=== PATIENT | male | born 1955 | race Caucasian/White ===

== ENCOUNTER 2017-06-24 09:02 | Outpatient (CLI) | payer OTHER ==
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
[2017-06-24] MEDS ORDERED: Sodium Chloride 0.9% 15 ML NEB ONE (15:27)
== END 2017-06-24 09:03 | disposition home or self-care (01) ==
LOC: WCC 09:02
PROVIDERS: ATTEND Family Medicine
DX: I83.218 Varicose veins of right lower extremity with both ulcer of other part of lower extremity and inflammation (principal); I10 Essential (primary) hypertension; M19.90 Unspecified osteoarthritis, unspecified site; F17.210 Nicotine dependence, cigarettes, uncomplicated; Z90.49 Acquired absence of other specified parts of digestive tract; Z98.890 Other specified postprocedural states; Z79.899 Other long term (current) drug therapy
CPT/HCPCS: 29581; 99203; A4218; G0463

== ENCOUNTER 2017-07-01 08:47 | Outpatient (CLI) | payer OTHER ==
--- NOTE | 2017-07-01 09:24 | PRG ---
DATE OF SERVICE: 07/01/2017 HISTORY: Mr. Jayden Zarco is a very pleasant 61-year-old gentleman who presents to the [facility] for evaluation of multiple small venous ulcerations of the right anterior lower leg. The patient pr eviously stated that the appearance of his right anterior lower leg had improved over the month prior to being seen in the [facility] Center. The patient stated that he had been treated with a steroid cream for the small ulcerations of his right anterior lower leg. The patient stated that he had been ximena aubrey with p.o. antibiotics by Dr. Malick Crane intermittently for 18 months prior to being seen in the [facility] Center. The patient stated that one week prior to being seen in the [facility] Center, he had been seen by Dr. Scooby Kahn and placed on p.o. penicillin. At this time, the patient stated he was re ferred by Dr. Kahn to the [facility]ound Center for treatment with compression for the multiple small ulcerat ions of his right anterior lower leg. After being seen in the [facility]ound Center, Xeroform gauze, Webril, and 3M Coban 2 layer compression system were applied to the right anterior lower leg ulcerations. PHYSICAL EXAMINATION: VITAL SIGNS: Temperature 98.0, pulse 84, respirations 18, blood pressure 153/90. EXTREMITIES: Multiple small ulcerations of the right anterior lower leg in a diffuse distribution swain ve improved in their appearance since the patient's last visit. No serous or purulent drainage is as sociated with any of the wounds. Less erythema of the right anterior lower leg is present than at th e time of the patient's last visit. The erythema appears to be secondary to stasis changes. No mace ration of the skin of the right anterior lower leg is noted. A dorsalis pedis pulse is easily palpab le on the right. No significant edema of the right foot or lower leg is present on exam today. Nume quyen varicosities are present over the right foot. ASSESSMENT AND PLAN: 1. Varicose veins with ulcers and inflammation. Xeroform gauze, Webril, and the 3M Coban 2-layer co mpression system will be applied to the ulcerations of the right anterior lower leg today. The patie nt is to continue p.o. penicillin as per Dr. Scooby Kahn of Infectious Diseases. I will see Mr. Neri davila again in one week. The patient states that he has a followup appointment with Dr. Kahn in appr oximately 10 days. 2. Hypertension. 3. Arthritis.
== END 2017-07-01 08:48 | disposition home or self-care (01) ==
LOC: WCC 08:47
PROVIDERS: ATTEND Family Medicine
DX: I83.219 Varicose veins of right lower extremity with both ulcer of unspecified site and inflammation (principal); I10 Essential (primary) hypertension; M19.90 Unspecified osteoarthritis, unspecified site
CPT/HCPCS: 29581

== ENCOUNTER 2017-07-08 08:34 | Outpatient (CLI) | payer OTHER ==
--- NOTE | 2017-07-08 11:59 | PRG ---
DATE OF SERVICE: 07/08/2017 HISTORY: Mr. Jayden Zarco is a very pleasant 61-year-old gentleman who presents to the [facility] for evaluation of multiple small venous ulcerations of the right anterior lower leg. The patie nt previously stated that the appearance of his right anterior lower leg had improved over the month prior to being seen in the [facility]ound Center. The patient stated that he had been treated with a steroid cream for the small ulcerations of his right anterior lower leg. The patient stated that he had been treated with p.o. antibiotics by Dr. Malick Crane intermittently for 18 months prior to being seen i n the Wound Center. The patient stated that one week prior to being seen in the [facility]ound Center, he had been seen by Dr. Scooby Kahn and placed on p.o. penicillin. At this time, the patient stated he w as referred by Dr. Kahn to the [facility] for treatment with compression for the multiple small ul cerations of his right anterior lower leg. After being seen in the Wound Center, Xeroform gauze, Web ril, and 3M Coban 2 layer compression system were applied to the right anterior lower leg ulcerations . The patient has been receiving these dressing changes on a weekly basis. PHYSICAL EXAMINATION: VITAL SIGNS: Temperature 98.2, pulse 80, respirations 18, blood pressure 141/89. EXTREMITIES: Multiple small ulcerations of the right anterior lower leg in a diffuse distribution swain ve again improved in their appearance since the patient's last visit. No serous or purulent drainage is associated with any of the wounds. Less erythema of the right anterior lower leg is present than at the time of the patient's last visit. The erythema appears to be secondary to stasis changes. N o maceration of the skin of the right anterior lower leg is present. A dorsalis pedis pulse is easil y palpable on the right. No significant edema of the right foot or lower leg is present on exam toda y. Numerous varicosities are present over the right foot. ASSESSMENT AND PLAN: 1. Varicose veins with ulcers and inflammation. Xeroform gauze, Webril, and 3M Coban 2-layer compre ssion system will be applied to the ulcerations of the right anterior lower leg today. The patient i s to continue p.o. penicillin as per Dr. Scooby Kahn of Infectious Diseases. I will see Mr. Zarco again in one week. The patient states he has a followup appointment with Dr. Kahn also in 1 week. The patient has been asked to consider prescription strength compression garments evaluation for gerard ous ablation and treatment with a pneumatic pump in order to prevent any new or recurrent ulcerations . The patient states he will discuss the preceding options with Dr. Kahn. 2. Hypertension. 3. Arthritis.
== END 2017-07-08 08:35 | disposition home or self-care (01) ==
LOC: WCC 08:34
PROVIDERS: ATTEND Family Medicine
DX: I83.218 Varicose veins of right lower extremity with both ulcer of other part of lower extremity and inflammation (principal); I10 Essential (primary) hypertension; M19.90 Unspecified osteoarthritis, unspecified site
CPT/HCPCS: 29581

== ENCOUNTER 2018-07-04 15:26 | Inpatient (IN) | payer MEDICARE, OTHER ==
[2018-07-04] MEDS ORDERED: Acetaminophen 650 MG Suppository PR PRN (16:53)
[2018-07-04] MEDS ORDERED: Ondansetron PF 4 MG/2 ML Vial IVP PRN (16:53)
[2018-07-04] MEDS ORDERED: Senokot S 8.6-50 MG TAB PO PRN (16:53)
[2018-07-04] MEDS ORDERED: Guaifenesin DM 100-10/5 ML UDCUP PO PRN (16:53)
[2018-07-04] MEDS ORDERED: Ondansetron ODT 4 MG TAB PO PRN (16:53)
[2018-07-04] MEDS ORDERED: Acetaminophen 325 MG TAB PO PRN (16:53)
[2018-07-04] MEDS ORDERED: Albuterol Sulfate 2.5 mg/3 ml Neb NEB PRN (16:58)
[2018-07-04 17:17] VITALS: BMI 38.9
[2018-07-04 18:01] LABS: ALT (SGPT) 25 U/L (8-55); AST (SGOT) 19 U/L (5-34); Albumin 3.3 g/dL (3.4-4.8); Alkaline Phosphatase 85 U/L (40-150); Anion Gap 11 mmol/L (10-20); BUN (Urea Nitrogen) 15 mg/dL (8.4-25.7); Bilirubin, Total 0.4 mg/dL (0.2-1.2); Calc. Creatinine Clearance 183 mL/min (70-130); Calcium 8.9 mg/dL (7.8-10.44); Carbon Dioxide 24 mmol/L (23-31); Chloride 100 mmol/L (98-107); Estimated GFR-MDRD 89; Globulin 3.5 g/dL (2.4-3.5); Glucose 128 mg/dL (80-115); Potassium 4.2 mmol/L (3.5-5.1); Protein, Total 6.8 g/dL (5.8-8.1); Sodium 131 mmol/L (136-145)
[2018-07-04 18:08] LABS: Band 9 % (5-11); Eosinophils 1 % (0-10); Hemoglobin 13.2 g/dL (14.0-18.0); Lymphocytes 27 % (21-51); MDiff Complete? YES; Mean Corpuscular HGB CONC 33.1 g/dL (32.0-36.0); Mean Corpuscular Hemoglobin 28.9 pg (27.0-31.0); Mean Corpuscular Volume 87.3 fL (78.0-98.0); Mean Platelet Volume 8.2 fL (7.4-10.4); Monocytes 7 % (0-10); Neutrophil 55 % (42-75); Platelet Count 162 thou/uL (130-400); Platelet Morphology Comment Appears Adequate; Reactive Lymphocytes 1 % (0-10); Red Blood Cell (RBC) Count 4.57 mill/uL (4.70-6.10); White Blood Cell (WBC) Count 8.4 thou/uL (4.8-10.8)
[2018-07-04] MEDS: Sodium Chloride 0.9% 1,000 ML IV SCH (18:24)
[2018-07-04 19:00] LABS: Bilirubin Negative (Negative); Blood, Urine Trace (Negative); Clarity CLEAR (Clear); Glucose, Urine (Dipstick) Negative (Negative); Leukocyte Negative (Negative); Nitrite Negative (Negative); Protein, Urine (Dipstick) Trace mg/dL (Neg-Trace)
[2018-07-04 19:02] LABS: Bacteria/HPF None Seen HPF (None Seen); Hyaline Casts/LPF 0-3 HYALINE CAST LPF (0-3 Hyaline); Pathc Cast-AUWi Flag 0.27 (0-2.49); Squamous Epithelial None Seen HPF (0-3); WBC/HPF 0-3 HPF (0-3)
[2018-07-04] MEDS: Famotidine 20 MG TAB PO SCH (20:58)
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
[2018-07-05] MEDS: Enoxaparin Sodium 40 MG/0.4 ML SYRINGE SC SCH (08:09)
[2018-07-05] MEDS: Famotidine 20 MG TAB PO SCH ×2 (08:10→20:17)
[2018-07-05 08:19] LABS: Anion Gap 12 mmol/L (10-20); BUN (Urea Nitrogen) 16 mg/dL (8.4-25.7); Calc. Creatinine Clearance 187 mL/min (70-130); Calcium 8.8 mg/dL (7.8-10.44); Carbon Dioxide 21 mmol/L (23-31); Chloride 104 mmol/L (98-107); Estimated GFR-MDRD Greater than 90; Glucose 150 mg/dL (80-115); Hemoglobin 13.6 g/dL (14.0-18.0); Mean Corpuscular HGB CONC 34.6 g/dL (32.0-36.0); Mean Corpuscular Hemoglobin 30.2 pg (27.0-31.0); Mean Corpuscular Volume 87.1 fL (78.0-98.0); Platelet Count 164 thou/uL (130-400); Potassium 4.2 mmol/L (3.5-5.1); RBC Distribution Width 14.3 % (11.5-14.5); Red Blood Cell (RBC) Count 4.52 mill/uL (4.70-6.10); Sodium 133 mmol/L (136-145); White Blood Cell (WBC) Count 7.3 thou/uL (4.8-10.8)
[2018-07-05 09:01] LABS: Band 19 % (5-11); Eosinophils 3 % (0-10); Lymphocytes 36 % (21-51); MDiff Complete? YES; Monocytes 10 % (0-10); Myelocyte 2 % (0-0); Neutrophil 27 % (42-75); Platelet Morphology Comment Appears Adequate; Polychromasia SLIGHT = 2-3 cells (100X) (0-2/hpf); Reactive Lymphocytes 3 % (0-10)
[2018-07-05] MEDS ORDERED: PROVENTIL INHALER 6.7 G (200 INHALATIONS) INH PRN (09:46)
--- NOTE | 2018-07-05 09:50 | PDOC.PN ---
- Subjective Encounter Start Date: 07/05/18 Encounter Start Time: 12:10 Subjective: Patient feeling a bit better. Less cough. No fever. Hasn't tried ambulating -: much. No SOB at rest. - Objective Resuscitation Status - Order Detail: 07/04/18 16:53 Resuscitation Status Routine Resuscitation Status: FULL: Full Resuscitation Discussed with: Doyle PANDEY Reviewed: Yes Vital Signs & Weight: Vital Signs (12 hours) Temp Pulse Resp BP Pulse Ox 07/05/18 08:48 98.3 F 80 20 133/73 94 L 07/05/18 08:00 94 L 07/05/18 06:45 72 16 96 07/05/18 04:26 98.3 F 73 18 121/72 95 07/05/18 01:13 66 16 95 07/05/18 00:27 98.1 F 65 16 104/59 L 95 Weight Weight 320 lb Result Diagrams: 07/05/18 07:09 07/05/18 07:09 Phys Exam - Physical Examination Constitutional: NAD HEENT: moist MMs Respiratory: no wheezing, no rales, no rhonchi Cardiovascular: RRR, no significant murmur Gastrointestinal: soft, positive bowel sounds Neurological: non-focal, moves all 4 limbs Psychiatric: normal affect, A&O x 3 Dx/Plan (1) Community acquired pneumonia Code(s): J18.9 - PNEUMONIA, UNSPECIFIED ORGANISM Status: Acute Qualifiers: Laterality: right Lung location: lower lobe of lung Qualified Code(s): J18.1 - Lobar pneumonia, unspecified organism (2) HTN (hypertension) Code(s): I10 - ESSENTIAL (PRIMARY) HYPERTENSION Status: Chronic Qualifiers: Hypertension type: essential hypertension Qualified Code(s): I10 - Essential (primary) hypertension (3) BPH (benign prostatic hyperplasia) Code(s): N40.0 - BENIGN PROSTATIC HYPERPLASIA WITHOUT LOWER URINRY TRACT SYMP Status: Chronic - Plan cont current plan of care, continue antibiotics, out of bed/ambulate, DVT proph w/lovenox, DVT proph w/SCDs * . - Discharge Day Encounter end time: 12:20
[2018-07-05] MEDS: Sodium Chloride 0.9% 1,000 ML IV SCH (14:59)
[2018-07-06] MEDS: Famotidine 20 MG TAB PO SCH (07:30)
[2018-07-06] MEDS: Enoxaparin Sodium 40 MG/0.4 ML SYRINGE SC SCH (07:30)
[2018-07-06 07:51] VITALS: BP 148/99; TEMP 97.5
[2018-07-06] MEDS ORDERED: Losartan 25 MG TAB PO SCH (09:00)
[2018-07-06] MEDS ORDERED: Fluticasone Propionate Nasal Spray 16 gm Bottle NASAL SCH (09:00)
[2018-07-06] MEDS ORDERED: Venlafaxine HCl XR 75 MG CAP PO SCH (09:00)
[2018-07-06] MEDS ORDERED: Tamsulosin HCl 0.4 MG CAP PO SCH (09:00)
--- NOTE | 2018-07-06 09:25 | PDOC.PN ---
- Subjective Encounter Start Date: 07/06/18 Encounter Start Time: 11:20 Subjective: Patient feeling much better. Minimal SOB with ambulation. No fever. -: Ready to go home. - Objective Resuscitation Status - Order Detail: 07/04/18 16:53 Resuscitation Status Routine Resuscitation Status: FULL: Full Resuscitation Discussed with: Doyle PANDEY Reviewed: Yes Vital Signs & Weight: Vital Signs (12 hours) Temp Pulse Resp BP Pulse Ox 07/06/18 08:00 93 L 07/06/18 07:50 97.5 F L 67 20 148/99 H 93 L 07/06/18 06:29 69 18 96 07/06/18 00:11 76 18 95 Weight Admit Weight 320 lb Weight 320 lb Result Diagrams: 07/05/18 07:09 07/05/18 07:09 Phys Exam - Physical Examination Constitutional: NAD HEENT: moist MMs Respiratory: no wheezing, no rales, no rhonchi, clear to auscultation bilateral Cardiovascular: RRR, no significant murmur Gastrointestinal: soft, non-tender, positive bowel sounds Neurological: non-focal, moves all 4 limbs Psychiatric: normal affect, A&O x 3 Dx/Plan (1) Community acquired pneumonia Code(s): J18.9 - PNEUMONIA, UNSPECIFIED ORGANISM Status: Acute Qualifiers: Laterality: right Lung location: lower lobe of lung Qualified Code(s): J18.1 - Lobar pneumonia, unspecified organism (2) HTN (hypertension) Code(s): I10 - ESSENTIAL (PRIMARY) HYPERTENSION Status: Chronic Qualifiers: Hypertension type: essential hypertension Qualified Code(s): I10 - Essential (primary) hypertension (3) BPH (benign prostatic hyperplasia) Code(s): N40.0 - BENIGN PROSTATIC HYPERPLASIA WITHOUT LOWER URINRY TRACT SYMP Status: Chronic - Plan cont current plan of care, continue antibiotics, out of bed/ambulate, DVT proph w/lovenox, DVT proph w/SCDs d/c home today, f/u with PCP and repeat CXR in 7-12 weeks due to -: age and previous smoking history * . - Discharge Day Encounter end time: 11:30
--- NOTE | 2018-07-07 06:57 | DIS ---
DATE OF ADMISSION: 07/04/2018 DATE OF DISCHARGE: 07/06/2018 PRIMARY CARE PHYSICIAN: Malick Crane MD REASON FOR ADMISSION: Community-acquired pneumonia, failed outpatient treatment. DIAGNOSES AT DISCHARGE: 1. Community-acquired pneumonia, improved. 2. Tobacco abuse. 3. Benign prostatic hyperplasia. PROCEDURES: None. CONSULTATIONS: None. SUMMARY OF HOSPITAL COURSE: This is a 62-year-old white male with a history of previous tobacco abuse. No asthma or COPD. He developed some dyspnea on exertion, some chills and fevers, was seen in the outpatient setting and noted to have a right lower lobe pneumonia with effusion. He was tried on Rocephin IM for 3 days as well as doxycycline. His symptoms were not improving at all and so he went to see Dr. Jayden Coates who was in for Dr. Crane while he was out of town and he asked us to directly admit the patient for failed outpatient treatment. The patient was admitted to the hospital, had lab work done, which was normal. He had IV Levaquin for 2 days. On 3rd hospital day, the patient is feeling much better. He is able ambulate in the hallways with minimal shortness of breath. No more fevers or body aches and he is ready to go home. DISCHARGE MANAGEMENT: Discharged home. FOLLOWUP: Follow up with Dr. Crane in 2 to 3 weeks and will need a repeat chest x-ray in 7-12 weeks due to his age and smoking history to confirm complete resolution. ACTIVITY: As tolerated. DIET: Healthy heart diet. MEDICATIONS: 1. Levaquin 750 mg daily, 3 tabs, dispensed for a total course of 5 days. 2. Resume albuterol as needed. 3. Fluticasone 2 sprays in each nostril daily. 4. Losartan 100 mg daily. 5. Sertraline 100 mg daily. 6. Tamsulosin 0.4 mg daily. 7. Venlafaxine 75 mg daily. Job ID: [id number] [id number]
== END 2018-07-06 13:22 | disposition home or self-care (01) | DRG 195 ==
LOC: T4-A 15:39
PROVIDERS: ADMIT Internal Medicine; ATTEND Internal Medicine
DX: J18.1 Lobar pneumonia, unspecified organism (principal); I10 Essential (primary) hypertension; N40.0 Benign prostatic hyperplasia without lower urinary tract symptoms; M19.90 Unspecified osteoarthritis, unspecified site; I87.2 Venous insufficiency (chronic) (peripheral); H54.40 Blindness, one eye, unspecified eye; F17.210 Nicotine dependence, cigarettes, uncomplicated; G47.419 Narcolepsy without cataplexy; Z90.49 Acquired absence of other specified parts of digestive tract; Z79.899 Other long term (current) drug therapy
CPT/HCPCS: 36415; 80048; 80053; 81003; 81015; 85025; 87040; 87070; 87086; 87205; 87804; 94640; J1650; J1956; J7620

== ENCOUNTER 2019-03-31 08:35 | Outpatient (CLI) | payer OTHER ==
--- NOTE | 2019-03-31 11:17 | RAD ---
Esophagram HISTORY: Dysphagia. Weight gain. Bariatric lap band. FINDINGS: Lap band is at the level of the diaphragm on the pens and pencils repairer images. Administration of single col umn barium shows mild to moderate restriction of contrast at the level of the band. Small hiatal hernia evident with the band at the location of the diaphragm. There is resultant reflux of the contr ast from the hernia into the esophagus. Extensive nonpropulsive tertiary type contractions. IMPRESSION: Lap band does restrict flow of liquid contrast, but it is at the level of the diaphragm, with reflux of contrast from the herniated portion of the stomach above the diaphragm throughout the entirety of the esophagus. Resultant prominent tertiary contractions of the esophagus.
== END 2019-03-31 08:36 | disposition home or self-care (01) ==
LOC: RAD 08:35
PROVIDERS: ATTEND Surgery
DX: K21.9 Gastro-esophageal reflux disease without esophagitis (principal); R63.5 Abnormal weight gain
CPT/HCPCS: 74220

== ENCOUNTER 2019-07-04 06:36 | Outpatient (CLI) | payer OTHER ==
[2019-07-04 17:32] LABS: #Basophils 0.1 thou/uL (0.0-0.2); #Eosinphils 0.6 thou/uL (0.0-0.7); #Lymphocytes 2.5 thou/uL (1.20-3.40); #Monocytes 0.9 thou/uL (0.11-0.59); #Neutrophils 4.8 thou/uL (1.40-6.50); %Basophils 0.6 % (0.0-1.0); %Eosinophils 6.4 % (0.0-10.0); %Lymphocytes 28.1 % (21.0-51.0); %Monocytes 10.5 % (0.0-10.0); %Neutrophils 54.4 % (42.0-75.0); Hemoglobin 14.5 g/dL (14.0-18.0); Mean Corpuscular HGB CONC 32.6 g/dL (32.0-36.0); Mean Platelet Volume 9.9 fL (7.4-10.4); Platelet Count 169 thou/uL (130-400); RBC Distribution Width 13.1 % (11.5-14.5); Red Blood Cell (RBC) Count 4.82 mill/uL (4.70-6.10); White Blood Cell (WBC) Count 8.9 thou/uL (4.8-10.8)
[2019-07-04 17:43] LABS: Anion Gap 16 mmol/L (10-20); BUN (Urea Nitrogen) 19 mg/dL (8.4-25.7); Calc. Creatinine Clearance 0 mL/min (70-130); Calcium 9.2 mg/dL (7.8-10.44); Carbon Dioxide 22 mmol/L (23-31); Chloride 104 mmol/L (98-107); Estimated GFR-MDRD 73; Glucose 143 mg/dL (80-115); Potassium 4.2 mmol/L (3.5-5.1); Sodium 138 mmol/L (136-145)
--- NOTE | 2019-07-04 20:27 | EKG ---
Test Reason : Blood Pressure : / mmHG Vent. Rate : 079 BPM Atrial Rate : 079 BPM P-R Int : 172 ms QRS Dur : 112 ms QT Int : 396 ms P-R-T Axes : 020 016 041 degrees QTc Int : 454 ms Normal sinus rhythm Low voltage QRS Incomplete right bundle branch block Borderline ECG No previous ECGs available Confirmed by STEPHANIE CORBETT, DR. Bob ([id number]) on 07/04/2019 8:27:26 PM Referred By: REYNA Confirmed By:DR. Paulino BROWN MD
[2019-07-05 10:55] LABS: SARS-CoV-2 MS2 Positive; SARS-CoV-2 N Gene Negative; SARS-CoV-2 S Gene Negative; SARS-CoV-2 orf1ab Negative
== END 2019-07-04 06:37 | disposition home or self-care (01) ==
LOC: LABBT 06:36
PROVIDERS: ATTEND Surgery
DX: Z01.818 Encounter for other preprocedural examination (principal); Z11.59 Encounter for screening for other viral diseases; T85.598A Other mechanical complication of other gastrointestinal prosthetic devices, implants and grafts, initial encounter
CPT/HCPCS: 80048; 85025; 87635; 93005; 93010; U0003

== ENCOUNTER 2019-07-06 06:25 | Day surgery (SDC) | payer OTHER ==
[2019-07-04 14:21] VITALS: BMI 41.3
[2019-07-06] MEDS ORDERED: Lidocaine 1% w/Epinephrine 1:100K 20 ML VIAL ONE (06:36)
[2019-07-06] MEDS ORDERED: Bupivacaine 0.25% HCL 30 ML VIAL ONE (06:36)
[2019-07-06] MEDS ORDERED: SUGAMMADEX SODIUM 500 MG/5 ML VIAL ONE (07:21)
[2019-07-06] MEDS ORDERED: Fentanyl 100 MCG/2 ML VIAL ONE ×2 (07:21)
[2019-07-06] MEDS ORDERED: Albuterol Sulfate HFA (OR ONLY) ONE (07:42)
--- NOTE | 2019-07-06 10:15 | OP ---
DATE OF PROCEDURE: 07/06/2019 PREOPERATIVE DIAGNOSIS: Fractured lap-band tubing. PROCEDURES PERFORMED: Replacement of lap-band port and repair of lap-band. INDICATIONS: A 63-year-old male, who has had a lap-band since 2001, who lost restriction. We did an x-ray that showed the tubing was still intact. Any fluid that was instilled would immediately be not accessible. FINDINGS: There was a tear of the tubing just at the port, so the whole port had to be replaced. I left him with 1 mL of saline within the system. DESCRIPTION OF PROCEDURE: After informed consent was obtained, the patient was taken to the operating room and given general endotracheal anesthesia, placed in supine position. His abdomen was prepped and draped in usual fashion. Local anesthesia was infiltrated subcutaneously and deep, and a transverse incision performed in the left upper quadrant. Subcu divided sharply, it was very deep, went down to and opened the capsule. The port was retrieved. The tubing was able to be retrieved. There was a fracture about half the diameter of the tubing right at the port. The tubing was divided and the port removed. A new port was fashioned by flushing the air out of the system with the priming needle. Then, the tubing of the lap-band was cut on a fresh cut and the pin was inserted. The system was sutured to the abdominal wall with interrupted 2-0 Prolene suture. The system was accessed with the Talbot needle and flushed, this old saline was removed, and 1 mL of saline left within the system. Hemostasis was assured. The subcu was reapproximated with interrupted 3-0 Vicryl and the skin closed with a running subcuticular 4-0 Rapide. Dermabond applied. The patient tolerated the procedure well, transferred to Recovery in good condition. Sponge and needle count verified correct x2. Job ID: [id number]
[2019-07-06] MEDS ORDERED: PROPOFOL 200 MG/20 ML VIAL ONE (13:28)
[2019-07-06] MEDS ORDERED: Ketorolac Tromethamine 30 MG/ML VIAL ONE (13:28)
[2019-07-06] MEDS ORDERED: Ondansetron PF 4 MG/2 ML Vial ONE (13:28)
[2019-07-06] MEDS ORDERED: Lidocaine 1% PF 5 ML VIAL ONE (13:28)
[2019-07-06] MEDS ORDERED: Rocuronium Bromide 10 MG/ML (10ML VIAL) ONE (13:28)
[2019-07-06] MEDS ORDERED: EPHEDRINE 25 MG/5 ML SYRINGE ONE ×2 (13:28)
[2019-07-06] MEDS ORDERED: PHENYLEPHRINE-NS 100 MCG/ML 10 ML SYRINGE ONE (13:28)
== END 2019-07-06 10:00 | disposition home or self-care (01) ==
LOC: SDC 06:25
PROVIDERS: ATTEND Surgery
PROC: 0DW63CZ Revision of Extraluminal Device in Stomach, Percutaneous Approach (ICD-10-PCS; principal; 2019-07-06)
DX: T85.598A Other mechanical complication of other gastrointestinal prosthetic devices, implants and grafts, initial encounter (principal); F17.210 Nicotine dependence, cigarettes, uncomplicated; Z79.899 Other long term (current) drug therapy
CPT/HCPCS: J0690; J1885; J2001; J2405; J2704; J3010; S0020

== ENCOUNTER 2019-11-29 17:12 | Inpatient (IN) | payer MEDICARE, OTHER ==
[~2019-11-29 17:12] MED LIST: Dexamethasone 20 MG/5 ML VIAL ONE; EPHEDRINE 25 MG/5 ML SYRINGE ONE; Glycopyrrolate 0.2 MG/ML 5 ML SYRINGE ONE; Iopamidol-370 76% 500 ML 1 ML ONE; Lidocaine 1% PF 5 ML VIAL ONE; Ondansetron PF 4 MG/2 ML Vial ONE; PHENYLEPHRINE-NS 100 MCG/ML 10 ML SYRINGE ONE; PROPOFOL 200 MG/20 ML VIAL ONE; Rocuronium Bromide 10 MG/ML (10ML VIAL) ONE; Succinylcholine Chloride 20 MG/ML 10 ml SYRINGE FS ONE
[2019-11-29] MEDS ORDERED: Boostrix 0.5 ML VIAL ONE (17:18)
[2019-11-29] MEDS ORDERED: Ketamine 50 MG/ML (10ML VIAL) ONE (17:18)
[2019-11-29] MEDS ORDERED: Gentamicin 80 MG/2 ML VIAL ONE (17:18)
[2019-11-29] MEDS ORDERED: Ondansetron PF 4 MG/2 ML Vial ONE (17:21)
[2019-11-29 17:41] LABS: #Basophils 0.1 thou/uL (0.0-0.2); #Eosinphils 0.5 thou/uL (0.0-0.7); #Lymphocytes 2.5 thou/uL (1.20-3.40); #Monocytes 0.8 thou/uL (0.11-0.59); #Neutrophils 9.8 thou/uL (1.40-6.50); %Basophils 0.6 % (0.0-1.0); %Eosinophils 3.9 % (0.0-10.0); %Lymphocytes 18.1 % (21.0-51.0); %Monocytes 5.8 % (0.0-10.0); %Neutrophils 71.6 % (42.0-75.0); Hemoglobin 15.2 g/dL (14.0-18.0); Mean Corpuscular HGB CONC 32.5 g/dL (32.0-36.0); Mean Corpuscular Hemoglobin 29.5 pg (27.0-31.0); Mean Corpuscular Volume 90.9 fL (78.0-98.0); Platelet Count 193 thou/uL (130-400); RBC Distribution Width 13.3 % (11.5-14.5); Red Blood Cell (RBC) Count 5.16 mill/uL (4.70-6.10); White Blood Cell (WBC) Count 13.7 thou/uL (4.8-10.8)
[2019-11-29 17:42] LABS: PTT 24.1 sec (22.9-36.1); Prothrombin Time 13.7 sec (12.0-14.7)
[2019-11-29] MEDS ORDERED: Gentamicin 300 MG in Sodium Chloride 0.9% 100 ML IVPB ONE (17:45)
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
[2019-11-29 18:01] LABS: ALT (SGPT) 30 U/L (8-55); AST (SGOT) 32 U/L (5-34); Albumin 3.9 g/dL (3.4-4.8); Alcohol Less than 10 mg/dL (Less than 10); Alkaline Phosphatase 88 U/L (40-110); Anion Gap 15 mmol/L (10-20); BUN (Urea Nitrogen) 23 mg/dL (8.4-25.7); Bilirubin, Total 0.5 mg/dL (0.2-1.2); Calc. Creatinine Clearance 0 mL/min (70-130); Calcium 8.9 mg/dL (7.8-10.44); Carbon Dioxide 21 mmol/L (23-31); Chloride 105 mmol/L (98-107); Estimated GFR-MDRD 58; Globulin 3.3 g/dL (2.4-3.5); Glucose 230 mg/dL (80-115); Potassium 3.7 mmol/L (3.5-5.1); Protein, Total 7.2 g/dL (5.8-8.1); Sodium 137 mmol/L (136-145)
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
[2019-11-29] MEDS ORDERED: Morphine 4 MG/ML VIAL ONE ×2 (18:15→18:25)
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
[2019-11-29] MEDS ORDERED: Lidocaine 2% Jelly 5 ML TUBE ONE (18:28)
[2019-11-29] MEDS ORDERED: Midazolam HCl 2 mg/2 ml Vial ONE (18:28)
[2019-11-29] MEDS ORDERED: Fentanyl 100 MCG/2 ML VIAL ONE ×3 (18:28→19:46)
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
[2019-11-29] MEDS ORDERED: Bupivacaine PF 0.5% 30 ML VIAL ONE (19:12)
[2019-11-29] MEDS ORDERED: Neomycin-Polymyxin 1 ML AMP ONE (19:12)
[2019-11-29 19:30] LABS: Magnesium 1.9 mg/dL (1.6-2.6); Phosphorus 3.1 mg/dL (2.3-4.7)
[2019-11-29] MEDS ORDERED: Morphine 4 MG/ML VIAL SLOW IVP PRN (21:34)
[2019-11-29] MEDS ORDERED: Ondansetron PF 4 MG/2 ML Vial IVP PRN (21:34)
[2019-11-29] MEDS ORDERED: Dextrose 50% Abboject 50 ML SYRINGE SLOW IVP PRN (21:34)
[2019-11-29] MEDS ORDERED: Dextrose 5% in Water 1,000 ML IV PRN (21:34)
[2019-11-29] MEDS ORDERED: Insulin Regular 300 UNITS/3 ML VIAL SC PRN (21:34)
--- NOTE | 2019-11-29 22:02 | RAD ---
EXAM INTRAOPERATIVE FLUOROSCOPY 11/29/19 HISTORY: ORIF EXPOSURE: 20.5 seconds. 1.20 mGy. FINDINGS: Two intraoperative fluoroscopic images demonstrate extensive internal fixation hardware at the level of the left ankle. IMPRESSION: Fluoroscopy as above. POS: OFF
[2019-11-29] MEDS ORDERED: Ibuprofen 600 MG TAB PO PRN (22:19)
[2019-11-29] MEDS ORDERED: Cepastat Lozenges 1 LOZ PO PRN (22:19)
[2019-11-29] MEDS ORDERED: [UNRECOGNIZED DRUG - OTHER] IVPB SCH (22:30)
[2019-11-29] MEDS ORDERED: POTASSIUM PHOSPHATE IVPB SCH (22:30)
[2019-11-29] MEDS ORDERED: MAGNESIUM SULFATE IVPB SCH (22:30)
[2019-11-29] MEDS ORDERED: Ondansetron HCl/PF 4 MG/2 ML Vial IVP PRN (22:34)
[2019-11-29] MEDS ORDERED: Promethazine HCl 25 MG/ML VIAL IM PRN (22:34)
[2019-11-29] MEDS ORDERED: Promethazine HCl 25 MG/ML VIAL SLOW IVP PRN (22:34)
[2019-11-29 23:55] LABS: Anion Gap 14 mmol/L (10-20); BUN (Urea Nitrogen) 21 mg/dL (8.4-25.7); Calc. Creatinine Clearance 0 mL/min (70-130); Calcium 7.8 mg/dL (7.8-10.44); Carbon Dioxide 20 mmol/L (23-31); Chloride 108 mmol/L (98-107); Estimated GFR-MDRD 66; Glucose 198 mg/dL (80-115); Potassium 4.5 mmol/L (3.5-5.1); Sodium 137 mmol/L (136-145)
[2019-11-29 23:59] LABS: Lactic Acid 1.4 mmol/L (0.5-2.2)
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
[2019-11-30] MEDS: traMADol HCl 50 MG TAB PO SCH ×6 (04:08→23:02)
[2019-11-30] MEDS: CEFAZOLIN 2 GM in Premix Bag 1 BAG IVPB SCH ×3 (04:08→20:49)
[2019-11-30] MEDS: Sodium Chloride 0.9% 1,000 ML IV SCH ×2 (04:08→06:11)
[2019-11-30] MEDS: Acetaminophen 500 MG TAB PO SCH ×5 (06:11→23:02)
[2019-11-30 06:17] VITALS: BMI 36.6
[2019-11-30 08:21] LABS: Hemoglobin 12.6 g/dL (14.0-18.0); Mean Corpuscular HGB CONC 33.1 g/dL (32.0-36.0); Mean Corpuscular Hemoglobin 30.6 pg (27.0-31.0); Mean Corpuscular Volume 92.5 fL (78.0-98.0); Mean Platelet Volume 9.4 fL (7.4-10.4); Platelet Count 157 thou/uL (130-400); RBC Distribution Width 13.5 % (11.5-14.5); Red Blood Cell (RBC) Count 4.13 mill/uL (4.70-6.10); White Blood Cell (WBC) Count 14.9 thou/uL (4.8-10.8)
[2019-11-30 08:32] LABS: Amphetamine Detected (NotDetected); Barbiturates Screen Not Detected (NotDetected); Benzodiazepine Screen Not Detected (NotDetected); Cocaine Metabolite Screen Not Detected (NotDetected); Medtox Control Line Valid? VALID (VALID); Medtox Reader # READER 1; Methadone Not Detected (NotDetected); Methamphetamine Detected (NotDetected); Opiate Screen Detected (NotDetected); Oxycodone Screen Not Detected (NotDetected); Phencyclidine (PCP) Not Detected (NotDetected); THC/Cannabinoid Screen Not Detected (NotDetected); Tricyclic Screen Not Detected (NotDetected)
[2019-11-30 08:39] LABS: Phosphorus 2.9 mg/dL (2.3-4.7)
[2019-11-30 08:41] LABS: Anion Gap 11 mmol/L (10-20); BUN (Urea Nitrogen) 19 mg/dL (8.4-25.7); Calc. Creatinine Clearance 154 mL/min (70-130); Calcium 7.7 mg/dL (7.8-10.44); Carbon Dioxide 22 mmol/L (23-31); Chloride 107 mmol/L (98-107); Estimated GFR-MDRD 80; Glucose 165 mg/dL (80-115); Magnesium 1.6 mg/dL (1.6-2.6); Potassium 4.4 mmol/L (3.5-5.1); Sodium 136 mmol/L (136-145)
[2019-11-30] MEDS: Gabapentin 300 MG CAP PO SCH ×3 (08:47→20:48)
[2019-11-30] MEDS: Cyclobenzaprine 10 MG TAB PO PRN (08:47)
[2019-11-30] MEDS: Polyethylene Glycol 3350 17 GM Packet PO SCH (08:47)
[2019-11-30] MEDS: Senokot S 8.6-50 MG TAB PO SCH ×2 (08:48→20:47)
[2019-11-30] MEDS: Famotidine 20 MG TAB PO SCH ×2 (08:49→20:48)
[2019-11-30] MEDS ORDERED: Tamsulosin HCl 0.4 MG CAP PO SCH (09:00)
[2019-11-30] MEDS ORDERED: Famotidine 20 MG TAB PO SCH (09:00)
[2019-11-30] MEDS ORDERED: Sodium Phosphate 30 MMOL in Sodium Chloride 0.9% 250 ML 250 ML IVPB SCH (11:30)
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
[2019-11-30] MEDS: Magnesium 2 GM/50 ML 2 GM in Premix Bag 1 BAG IVPB SCH ×2 (15:49→15:53)
[2019-11-30] MEDS: Nicotine 21 MG PATCH TOP SCH (15:51)
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
[2019-11-30] MEDS: Insulin Regular 300 UNITS/3 ML VIAL SC PRN (17:58)
[2019-11-30] MEDS: Enoxaparin Sodium 40 MG/0.4 ML SYRINGE SC SCH (20:48)
[2019-11-30] MEDS ORDERED: ADDERALL 20 MG PO SCH (21:00)
--- NOTE | 2019-12-01 00:48 | PRG ---
DATE OF SERVICE: 11/30/2019 SUBJECTIVE: The patient was seen during evening rounds, awake, alert, sitting up in chair. The patient reports that his pain is controlled at this time. The patient voices no complaints or concerns. The patient is using his incentive spirometer reaching 2500 at 3000 mL. OBJECTIVE: VITAL SIGNS: Stable, afebrile. GENERAL: Well-appearing middle-aged male, awake, alert, in no distress. PULMONARY: Equal chest rise and fall. No respiratory distress. CARDIAC: Regular rate and regular rhythm. EXTREMITIES: Moves all extremities. Neurovascularly intact x4. Splint clean, dry, and intact to left lower extremity and left upper extremity. Dressings in place to right arm and right leg. NEUROLOGIC: No focal deficits. PLAN: Continue supportive care and pain regimen. Increase physical and occupational therapy. Continue CPAP at night. The patient will likely need inpatient rehab for continued physical and occupational therapy. Job ID: [id number]
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
[2019-12-01] MEDS: traMADol HCl 50 MG TAB PO SCH ×2 (04:16→23:33)
[2019-12-01] MEDS: Acetaminophen 500 MG TAB PO SCH ×4 (04:17→22:16)
[2019-12-01] MEDS: CEFAZOLIN 2 GM in Premix Bag 1 BAG IVPB SCH (04:18)
[2019-12-01 05:31] LABS: #Eosinphils 0.1 thou/uL (0.0-0.7); #Lymphocytes 2.2 thou/uL (1.20-3.40); #Monocytes 1.6 thou/uL (0.11-0.59); #Neutrophils 8.2 thou/uL (1.40-6.50); %Basophils 0.3 % (0.0-1.0); %Eosinophils 1.1 % (0.0-10.0); %Lymphocytes 17.9 % (21.0-51.0); %Monocytes 13.1 % (0.0-10.0); %Neutrophils 67.6 % (42.0-75.0); Mean Corpuscular Hemoglobin 30.8 pg (27.0-31.0); Mean Corpuscular Volume 93.4 fL (78.0-98.0); Mean Platelet Volume 8.8 fL (7.4-10.4); Platelet Count 120 thou/uL (130-400); RBC Distribution Width 13.5 % (11.5-14.5); Red Blood Cell (RBC) Count 3.59 mill/uL (4.70-6.10); White Blood Cell (WBC) Count 12.2 thou/uL (4.8-10.8)
[2019-12-01] MEDS: Insulin Regular 300 UNITS/3 ML VIAL SC PRN ×3 (05:40→17:54)
[2019-12-01 05:55] LABS: Anion Gap 8 mmol/L (10-20); BUN (Urea Nitrogen) 26 mg/dL (8.4-25.7); Calc. Creatinine Clearance 149 mL/min (70-130); Calcium 7.3 mg/dL (7.8-10.44); Carbon Dioxide 24 mmol/L (23-31); Chloride 107 mmol/L (98-107); Estimated GFR-MDRD 77; Glucose 164 mg/dL (80-115); Phosphorus 2.1 mg/dL (2.3-4.7); Potassium 3.7 mmol/L (3.5-5.1); Sodium 135 mmol/L (136-145)
[2019-12-01] MEDS ORDERED: Sodium Phosphate 30 MMOL in Sodium Chloride 0.9% 250 ML 250 ML IVPB SCH (08:30)
[2019-12-01] MEDS ORDERED: Potassium Chloride 20 MEQ TAB PO SCH (08:30)
[2019-12-01] MEDS: Gabapentin 300 MG CAP PO SCH ×3 (08:38→22:16)
[2019-12-01] MEDS: Losartan 25 MG TAB PO SCH (08:38)
[2019-12-01] MEDS: Multivitamin W/ Minerals 1 TAB PO SCH (08:42)
[2019-12-01] MEDS: Calcium Carbonate 600 MG + Vit D TAB PO SCH (08:42)
[2019-12-01] MEDS: Tamsulosin HCl 0.4 MG CAP PO SCH (08:42)
[2019-12-01] MEDS: Cyclobenzaprine 10 MG TAB PO PRN (08:42)
[2019-12-01] MEDS: Venlafaxine HCl XR 75 MG CAP PO SCH (08:42)
[2019-12-01] MEDS: Senokot S 8.6-50 MG TAB PO SCH ×2 (08:44→22:16)
[2019-12-01] MEDS: Polyethylene Glycol 3350 17 GM Packet PO SCH (08:45)
[2019-12-01] MEDS: Famotidine 20 MG TAB PO SCH ×2 (08:45→22:16)
[2019-12-01] MEDS: Fluticasone Propionate Nasal Spray 16 gm Bottle NASAL SCH (08:45)
[2019-12-01] MEDS ORDERED: ADDERALL 20 MG PO SCH (09:00)
[2019-12-01] MEDS ORDERED: traMADol HCl 50 MG TAB PO SCH ×2 (12:00→18:30)
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
[2019-12-01] MEDS: Nicotine 21 MG PATCH TOP SCH (15:34)
[2019-12-01] MEDS ORDERED: traMADol HCl 50 MG TAB PO PRN (16:37)
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
[2019-12-01] MEDS: Enoxaparin Sodium 40 MG/0.4 ML SYRINGE SC SCH (22:16)
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
[2019-12-02] MEDS: Acetaminophen 500 MG TAB PO SCH ×4 (04:47→21:51)
[2019-12-02 05:56] LABS: Anion Gap 12 mmol/L (10-20); BUN (Urea Nitrogen) 17 mg/dL (8.4-25.7); Calc. Creatinine Clearance 185 mL/min (70-130); Calcium 7.7 mg/dL (7.8-10.44); Carbon Dioxide 23 mmol/L (23-31); Chloride 106 mmol/L (98-107); Estimated GFR-MDRD Greater than 90; Glucose 141 mg/dL (80-115); Potassium 4.3 mmol/L (3.5-5.1); Sodium 137 mmol/L (136-145)
[2019-12-02 06:00] LABS: Phosphorus 1.9 mg/dL (2.3-4.7)
[2019-12-02 06:04] LABS: #Basophils 0.1 thou/uL (0.0-0.2); #Eosinphils 0.3 thou/uL (0.0-0.7); #Lymphocytes 2.2 thou/uL (1.20-3.40); #Monocytes 1.3 thou/uL (0.11-0.59); #Neutrophils 7.2 thou/uL (1.40-6.50); %Basophils 0.5 % (0.0-1.0); %Eosinophils 3.2 % (0.0-10.0); %Lymphocytes 19.5 % (21.0-51.0); %Monocytes 11.6 % (0.0-10.0); %Neutrophils 65.2 % (42.0-75.0); Hemoglobin 10.5 g/dL (14.0-18.0); Mean Corpuscular HGB CONC 32.6 g/dL (32.0-36.0); Mean Corpuscular Hemoglobin 30.7 pg (27.0-31.0); Mean Corpuscular Volume 94.1 fL (78.0-98.0); Mean Platelet Volume 9.7 fL (7.4-10.4); Platelet Count 99 thou/uL (130-400); Platelet Morphology Comment Appears Decreased; RBC Distribution Width 13.5 % (11.5-14.5); Red Blood Cell (RBC) Count 3.43 mill/uL (4.70-6.10)
[2019-12-02] MEDS: traMADol HCl 50 MG TAB PO SCH ×3 (06:05→18:22)
[2019-12-02] MEDS: ADDERALL 20 MG PO SCH ×2 (06:19→10:40)
[2019-12-02] MEDS ORDERED: Sodium Phosphate 30 MMOL in Sodium Chloride 0.9% 250 ML 250 ML IVPB SCH (07:00)
[2019-12-02] MEDS ORDERED: Sodium Phosphate 30 MMOL in Sodium Chloride 0.9% 100 ML IVPB SCH (07:15)
[2019-12-02] MEDS: Calcium Carbonate 600 MG + Vit D TAB PO SCH (08:31)
[2019-12-02] MEDS: Gabapentin 300 MG CAP PO SCH ×3 (08:31→20:29)
[2019-12-02] MEDS: Senokot S 8.6-50 MG TAB PO SCH ×2 (08:31→20:29)
[2019-12-02] MEDS: Fluticasone Propionate Nasal Spray 16 gm Bottle NASAL SCH (08:32)
[2019-12-02] MEDS: Famotidine 20 MG TAB PO SCH ×2 (08:32→20:29)
[2019-12-02] MEDS: Multivitamin W/ Minerals 1 TAB PO SCH (08:32)
[2019-12-02] MEDS: Venlafaxine HCl XR 75 MG CAP PO SCH (08:32)
[2019-12-02] MEDS: Tamsulosin HCl 0.4 MG CAP PO SCH (08:32)
[2019-12-02] MEDS: Losartan 25 MG TAB PO SCH (08:32)
[2019-12-02] MEDS: Polyethylene Glycol 3350 17 GM Packet PO SCH (08:32)
[2019-12-02] MEDS: Insulin Regular 300 UNITS/3 ML VIAL SC PRN ×2 (10:41→15:53)
[2019-12-02] MEDS: Nicotine 21 MG PATCH TOP SCH (15:57)
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
[2019-12-02] MEDS: Enoxaparin Sodium 40 MG/0.4 ML SYRINGE SC SCH ×2 (20:28→21:54)
--- NOTE | 2019-12-02 23:23 | PRG ---
DATE OF SERVICE: 12/02/2019 SUBJECTIVE: The patient remains on the surgical floor, resting comfortably, in no acute distress. The patient's pain has been well controlled. The patient did ambulate some using a walker with physical therapy today. OBJECTIVE: VITAL SIGNS: Stable, afebrile. Urinary output is adequate for patient's age and weight. PLAN: Unchanged. Continue current diet and pain regimen. Continue physical and occupational therapy. The patient is pending insurance approval to acute rehab facility. The patient is ready for discharge at this time. Job ID: [id number]
[2019-12-03] MEDS: traMADol HCl 50 MG TAB PO SCH ×5 (00:31→23:48)
[2019-12-03] MEDS: Acetaminophen 500 MG TAB PO SCH ×4 (03:48→21:30)
[2019-12-03 05:42] LABS: Anion Gap 10 mmol/L (10-20); BUN (Urea Nitrogen) 13 mg/dL (8.4-25.7); Calc. Creatinine Clearance 195 mL/min (70-130); Calcium 7.8 mg/dL (7.8-10.44); Carbon Dioxide 24 mmol/L (23-31); Chloride 105 mmol/L (98-107); Estimated GFR-MDRD Greater than 90; Glucose 166 mg/dL (80-115); Magnesium 1.8 mg/dL (1.6-2.6); Phosphorus 2.2 mg/dL (2.3-4.7); Potassium 4.2 mmol/L (3.5-5.1); Sodium 135 mmol/L (136-145)
[2019-12-03] MEDS: ADDERALL 20 MG PO SCH ×2 (05:53→10:07)
[2019-12-03] MEDS: Insulin Regular 300 UNITS/3 ML VIAL SC PRN ×3 (06:02→16:21)
[2019-12-03] MEDS: Fluticasone Propionate Nasal Spray 16 gm Bottle NASAL SCH (07:57)
[2019-12-03] MEDS: Venlafaxine HCl XR 75 MG CAP PO SCH (07:57)
[2019-12-03] MEDS: Calcium Carbonate 600 MG + Vit D TAB PO SCH (07:57)
[2019-12-03] MEDS: Gabapentin 300 MG CAP PO SCH ×3 (07:58→21:28)
[2019-12-03] MEDS: Famotidine 20 MG TAB PO SCH ×2 (07:58→21:29)
[2019-12-03] MEDS: Tamsulosin HCl 0.4 MG CAP PO SCH (07:58)
[2019-12-03] MEDS: Multivitamin W/ Minerals 1 TAB PO SCH (07:58)
[2019-12-03] MEDS: Losartan 25 MG TAB PO SCH (07:58)
[2019-12-03] MEDS: Senokot S 8.6-50 MG TAB PO SCH ×2 (08:01→21:28)
[2019-12-03] MEDS: Polyethylene Glycol 3350 17 GM Packet PO SCH (08:01)
[2019-12-03] MEDS: PHOS-NAK 1 PKT PACK PO SCH ×2 (10:07→21:29)
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
[2019-12-03] MEDS: Nicotine 21 MG PATCH TOP SCH (16:21)
[2019-12-03] MEDS: Enoxaparin Sodium 40 MG/0.4 ML SYRINGE SC SCH (21:28)
[2019-12-03] MEDS ORDERED: Bacitracin 1 PK TOP SCH (23:15)
[2019-12-03] MEDS ORDERED: Bacitracin Zinc Ointment 30 gm TUBE TOP SCH (23:30)
[2019-12-04] MEDS: Acetaminophen 500 MG TAB PO SCH ×2 (03:42→12:37)
[2019-12-04] MEDS: traMADol HCl 50 MG TAB PO SCH ×2 (05:17→11:33)
[2019-12-04] MEDS ORDERED: Ferrous Sulfate 325 MG TAB PO SCH (08:00)
[2019-12-04] MEDS: Fluticasone Propionate Nasal Spray 16 gm Bottle NASAL SCH (08:35)
[2019-12-04] MEDS: Gabapentin 300 MG CAP PO SCH (08:35)
[2019-12-04] MEDS: Calcium Carbonate 600 MG + Vit D TAB PO SCH (08:36)
[2019-12-04] MEDS: Famotidine 20 MG TAB PO SCH (08:36)
[2019-12-04] MEDS: Multivitamin W/ Minerals 1 TAB PO SCH (08:36)
[2019-12-04] MEDS: Tamsulosin HCl 0.4 MG CAP PO SCH (08:36)
[2019-12-04] MEDS: Venlafaxine HCl XR 75 MG CAP PO SCH (08:36)
[2019-12-04] MEDS: Losartan 25 MG TAB PO SCH (08:40)
[2019-12-04] MEDS: PHOS-NAK 1 PKT PACK PO SCH (08:40)
[2019-12-04] MEDS: Senokot S 8.6-50 MG TAB PO SCH (08:44)
[2019-12-04] MEDS: Polyethylene Glycol 3350 17 GM Packet PO SCH (08:44)
[2019-12-04] MEDS ORDERED: Bacitracin Zinc Ointment 30 gm TUBE TOP SCH (09:00)
[2019-12-04] MEDS ORDERED: Ascorbic Acid 500 mg Chewable Tablet PO SCH (09:00)
[2019-12-04] MEDS ORDERED: Bacitracin 1 PK TOP SCH (09:00)
[2019-12-04 11:50] VITALS: BP 131/80; TEMP 98.2
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
== END 2019-12-04 14:55 | disposition home health service (06) | DRG 493 ==
LOC: ERS 17:12 → SDC/OP 18:45 → SJJU 23:00
PROVIDERS: ADMIT Surgery; ATTEND Surgery
PROC: 0QSK04Z Reposition Left Fibula with Internal Fixation Device, Open Approach (ICD-10-PCS; principal; 2019-11-29)
PROC: 0KQB0ZZ Repair Left Lower Arm and Wrist Muscle, Open Approach (ICD-10-PCS; 2019-11-29)
PROC: 0QSM04Z Reposition Left Tarsal with Internal Fixation Device, Open Approach (ICD-10-PCS; 2019-11-29)
PROC: 04QM0ZZ Repair Right Popliteal Artery, Open Approach (ICD-10-PCS; 2019-11-29)
PROC: 0XQLXZZ Repair Right Thumb, External Approach (ICD-10-PCS; 2019-11-29)
PROC: 0YQFXZZ Repair Right Knee Region, External Approach (ICD-10-PCS; 2019-11-29)
PROC: 0SSMXZZ Reposition Right Metatarsal-Phalangeal Joint, External Approach (ICD-10-PCS; 2019-11-29)
PROC: 3E0234Z Introduction of Serum, Toxoid and Vaccine into Muscle, Percutaneous Approach (ICD-10-PCS; 2019-11-29)
PROC: 5A09357 Assistance with Respiratory Ventilation, Less than 24 Consecutive Hours, Continuous Positive Airway Pressure (ICD-10-PCS; 2019-12-01)
DX: S82.62XA Displaced fracture of lateral malleolus of left fibula, initial encounter for closed fracture (principal); S85.182A Other specified injury of posterior tibial artery, left leg, initial encounter; S92.112A Displaced fracture of neck of left talus, initial encounter for closed fracture; S51.812A Laceration without foreign body of left forearm, initial encounter; S61.011A Laceration without foreign body of right thumb without damage to nail, initial encounter; S81.011A Laceration without foreign body, right knee, initial encounter; S93.121A Dislocation of metatarsophalangeal joint of right great toe, initial encounter; G47.33 Obstructive sleep apnea (adult) (pediatric); F43.10 Post-traumatic stress disorder, unspecified; E11.9 Type 2 diabetes mellitus without complications; I10 Essential (primary) hypertension; G47.419 Narcolepsy without cataplexy; F17.210 Nicotine dependence, cigarettes, uncomplicated; N40.0 Benign prostatic hyperplasia without lower urinary tract symptoms; V43.52XA Car driver injured in collision with other type car in traffic accident, initial encounter; Y92.410 Unspecified street and highway as the place of occurrence of the external cause; Z98.84 Bariatric surgery status; Z79.899 Other long term (current) drug therapy; Z23 Encounter for immunization
CPT/HCPCS: 28435; 36415; 36416; 70450; 71045; 71260; 72125; 74177; 76000; 76377; 80048; 80053; 80306; 80307; 82550; 83605; 83735; 84100; 85025; 85027; 85610; 85730; 86850; 86900; 86901; 90471; 90715; 93005; 96365; 96375; 99152; C1713; G0390; J0690; J1100; J1580; J1650; J1815; J2250; J2270; J2405; J2704; J3010; J3475; J3490; J7050; Q9967; S0020

== ENCOUNTER 2019-12-19 07:44 | Outpatient (CLI) | payer MEDICARE, OTHER ==
[2019-12-20 10:30] LABS: SARS-CoV-2 MS2 Positive; SARS-CoV-2 N Gene Negative; SARS-CoV-2 S Gene Negative; SARS-CoV-2 by NAA Not Detected (NotDetected); SARS-CoV-2 orf1ab Negative
== END 2019-12-19 07:45 | disposition home or self-care (01) ==
LOC: LABBT 07:44
PROVIDERS: ATTEND Orthopaedic Surgery
DX: S92.112A Displaced fracture of neck of left talus, initial encounter for closed fracture (principal); Z20.828 Contact with and (suspected) exposure to other viral communicable diseases
CPT/HCPCS: 87635; U0003

== ENCOUNTER 2019-12-19 09:45 | Inpatient (IN) | payer MEDICARE, OTHER ==
[2019-12-21 10:36] VITALS: BMI 37.7
[2019-12-22] MEDS ORDERED: Fentanyl 100 MCG/2 ML VIAL ONE ×3 (06:32→10:17)
[2019-12-22] MEDS ORDERED: Midazolam HCl 2 mg/2 ml Vial ONE (06:32)
[2019-12-22] MEDS ORDERED: traMADol HCl 50 MG TAB PO PRN (08:15)
[2019-12-22] MEDS ORDERED: Ropivacaine 0.2% 550 ML 550 ML NERVE BLCK SCH (08:15)
[2019-12-22] MEDS ORDERED: HYDROcodone/Acetaminophen 10/325 mg Tablet PO PRN (08:15)
[2019-12-22] MEDS ORDERED: Promethazine HCl 25 MG/ML VIAL IM PRN ×2 (08:15→11:23)
[2019-12-22] MEDS ORDERED: Ondansetron PF 4 MG/2 ML Vial IVP PRN (08:15)
[2019-12-22] MEDS ORDERED: Zolpidem Tartrate 5 MG TAB PO PRN (08:15)
[2019-12-22] MEDS ORDERED: PHENYLEPHRINE-NS 100 MCG/ML 10 ML SYRINGE ONE (10:28)
[2019-12-22] MEDS ORDERED: Bupivacaine HCl 0.5%/Epinephrine 1:200,000/PF 30 ml Vial ONE (10:28)
[2019-12-22] MEDS ORDERED: Lidocaine 1% PF 5 ML VIAL ONE (10:28)
[2019-12-22] MEDS ORDERED: Rocuronium Bromide 10 MG/ML (10ML VIAL) ONE (10:28)
[2019-12-22] MEDS ORDERED: EPHEDRINE 25 MG/5 ML SYRINGE ONE (10:28)
[2019-12-22] MEDS ORDERED: PROPOFOL 200 MG/20 ML VIAL ONE (10:28)
[2019-12-22] MEDS ORDERED: Ondansetron PF 4 MG/2 ML Vial ONE (10:28)
[2019-12-22] MEDS ORDERED: Ropivacaine 0.5% HCl/PF (150 MG/30 ML VIAL) ONE (10:28)
[2019-12-22] MEDS ORDERED: Ropivacaine 0.2% HCl/PF (40 MG/20 ML VIAL) ONE (10:28)
[2019-12-22] MEDS ORDERED: ePHEDrine 50 MG/ML VIAL ONE (10:47)
[2019-12-22] MEDS ORDERED: Phenylephrine 10 MG/ML VIAL ONE (10:58)
[2019-12-22] MEDS ORDERED: Ondansetron HCl/PF 4 MG/2 ML Vial IVP PRN (11:23)
[2019-12-22] MEDS ORDERED: Promethazine HCl 25 MG/ML VIAL SLOW IVP PRN (11:23)
[2019-12-22] MEDS ORDERED: Communication Order-Pharmacy FS SCH (11:30)
--- NOTE | 2019-12-22 12:54 | RAD ---
XR Ankle Lt 2 View History: Foot fusion Comparison: Radiograph November 29, 2019 Findings: Interval placement of a retrograde nail through the hindfoot. Bimalleolar interfragmentary screws along with talar screws are similar. New antegrade talar body screw as well as a calcaneal nail and screw fixation. Impression: New hindfoot fusion hardware.
[2019-12-22] MEDS: Ketorolac Tromethamine 30 MG/ML VIAL IVP SCH ×3 (15:54→23:48)
[2019-12-22] MEDS: traMADol HCl 50 MG TAB PO PRN (17:15)
[2019-12-22] MEDS: CEFAZOLIN 2 GM in Premix Bag 1 BAG IVPB SCH ×2 (17:17→23:47)
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
[2019-12-22] MEDS: Aspirin 81 mg Enteric Coated Tablet PO SCH (21:01)
[2019-12-23] MEDS: traMADol HCl 50 MG TAB PO PRN ×2 (01:48→17:03)
[2019-12-23] MEDS: Fentanyl 100 MCG/2 ML VIAL IV PRN ×3 (02:18→22:06)
[2019-12-23] MEDS: Ketorolac Tromethamine 30 MG/ML VIAL IVP SCH ×3 (05:27→17:03)
[2019-12-23 06:12] LABS: #Basophils 0.1 thou/uL (0.0-0.2); #Lymphocytes 2.3 thou/uL (1.20-3.40); #Monocytes 1.5 thou/uL (0.11-0.59); #Neutrophils 6.9 thou/uL (1.40-6.50); %Basophils 0.5 % (0.0-1.0); %Eosinophils 8.6 % (0.0-10.0); %Lymphocytes 19.5 % (21.0-51.0); %Monocytes 12.6 % (0.0-10.0); %Neutrophils 58.7 % (42.0-75.0); Mean Corpuscular HGB CONC 32.5 g/dL (32.0-36.0); Mean Corpuscular Hemoglobin 29.2 pg (27.0-31.0); Mean Corpuscular Volume 89.9 fL (78.0-98.0); Mean Platelet Volume 7.9 fL (7.4-10.4); Platelet Count 187 thou/uL (130-400); Red Blood Cell (RBC) Count 3.76 mill/uL (4.70-6.10); White Blood Cell (WBC) Count 11.8 thou/uL (4.8-10.8)
[2019-12-23] MEDS: HYDROcodone/Acetaminophen 10/325 mg Tablet PO PRN ×4 (06:14→21:03)
[2019-12-23] MEDS: CEFAZOLIN 2 GM in Premix Bag 1 BAG IVPB SCH ×3 (06:15→21:02)
[2019-12-23 06:39] LABS: ALT (SGPT) 12 U/L (8-55); AST (SGOT) 14 U/L (5-34); Albumin 3.1 g/dL (3.4-4.8); Alkaline Phosphatase 92 U/L (40-110); Anion Gap 13 mmol/L (10-20); BUN (Urea Nitrogen) 27 mg/dL (8.4-25.7); Bilirubin, Total 0.2 mg/dL (0.2-1.2); Calc. Creatinine Clearance 137 mL/min (70-130); Calcium 7.8 mg/dL (7.8-10.44); Carbon Dioxide 24 mmol/L (23-31); Chloride 103 mmol/L (98-107); Estimated GFR-MDRD 68; Glucose 132 mg/dL (80-115); Potassium 3.9 mmol/L (3.5-5.1); Protein, Total 6.1 g/dL (5.8-8.1); Sodium 136 mmol/L (136-145)
[2019-12-23] MEDS: Aspirin 81 mg Enteric Coated Tablet PO SCH ×2 (08:23→21:02)
[2019-12-23] MEDS ORDERED: FLU VACC QS2020-21(6MOS UP)/PF 60 MCG/0.5 ML SYRINGE IM ONE (09:00)
[2019-12-23] MEDS ORDERED: Bupivacaine 0.25% HCL 30 ML VIAL ONE (09:35)
[2019-12-23] MEDS ORDERED: TETANUS AND DIPHTHERIA TOX/PF 0.5 ML DISP.SYRIN IM SCH (11:30)
[2019-12-24] MEDS: traMADol HCl 50 MG TAB PO PRN (00:05)
[2019-12-24] MEDS: Ketorolac Tromethamine 30 MG/ML VIAL IVP SCH ×2 (00:06→06:03)
[2019-12-24] MEDS: CEFAZOLIN 2 GM in Premix Bag 1 BAG IVPB SCH ×3 (06:04→21:11)
[2019-12-24] MEDS: HYDROcodone/Acetaminophen 10/325 mg Tablet PO PRN ×4 (06:04→21:12)
[2019-12-24] MEDS: Aspirin 81 mg Enteric Coated Tablet PO SCH ×2 (09:18→21:08)
[2019-12-24] MEDS: Nicotine 21 MG PATCH TOP SCH (11:58)
[2019-12-24] MEDS ORDERED: Senokot 8.6 MG TAB PO PRN (18:59)
[2019-12-25] MEDS: HYDROcodone/Acetaminophen 10/325 mg Tablet PO PRN (03:51)
[2019-12-25] MEDS: Fentanyl 100 MCG/2 ML VIAL IV PRN ×2 (04:12→10:54)
[2019-12-25] MEDS: CEFAZOLIN 2 GM in Premix Bag 1 BAG IVPB SCH ×2 (05:17→13:25)
[2019-12-25 05:28] LABS: #Basophils 0.1 thou/uL (0.0-0.2); #Lymphocytes 1.7 thou/uL (1.20-3.40); #Monocytes 0.9 thou/uL (0.11-0.59); #Neutrophils 5.6 thou/uL (1.40-6.50); %Basophils 0.7 % (0.0-1.0); %Eosinophils 10.6 % (0.0-10.0); %Lymphocytes 18.3 % (21.0-51.0); %Monocytes 9.8 % (0.0-10.0); %Neutrophils 60.6 % (42.0-75.0); Hemoglobin 10.8 g/dL (14.0-18.0); Mean Corpuscular HGB CONC 32.6 g/dL (32.0-36.0); Mean Corpuscular Hemoglobin 29.2 pg (27.0-31.0); Mean Corpuscular Volume 89.7 fL (78.0-98.0); Mean Platelet Volume 8.2 fL (7.4-10.4); Platelet Count 188 thou/uL (130-400); RBC Distribution Width 13.6 % (11.5-14.5); Red Blood Cell (RBC) Count 3.71 mill/uL (4.70-6.10); White Blood Cell (WBC) Count 9.3 thou/uL (4.8-10.8)
[2019-12-25] MEDS: Aspirin 81 mg Enteric Coated Tablet PO SCH (07:59)
[2019-12-25] MEDS: traMADol HCl 50 MG TAB PO PRN (08:10)
[2019-12-25] MEDS ORDERED: Losartan 25 MG TAB PO SCH (09:00)
[2019-12-25] MEDS ORDERED: Tamsulosin HCl 0.4 MG CAP PO SCH (09:00)
[2019-12-25] MEDS: Nicotine 21 MG PATCH TOP SCH (11:39)
[2019-12-25 15:15] VITALS: BP 155/78; TEMP 98.7
== END 2019-12-25 17:25 | disposition home or self-care (01) | DRG 505 ==
LOC: SURG A 12-22 05:52
PROVIDERS: ADMIT Orthopaedic Surgery; ATTEND Orthopaedic Surgery
PROC: 0SGJ07Z Fusion of Left Tarsal Joint with Autologous Tissue Substitute, Open Approach (ICD-10-PCS; principal; 2019-12-22)
DX: S92.112D Displaced fracture of neck of left talus, subsequent encounter for fracture with routine healing (principal); S82.832D Other fracture of upper and lower end of left fibula, subsequent encounter for closed fracture with routine healing; E78.2 Mixed hyperlipidemia; Z20.828 Contact with and (suspected) exposure to other viral communicable diseases; E11.9 Type 2 diabetes mellitus without complications; I10 Essential (primary) hypertension; G47.33 Obstructive sleep apnea (adult) (pediatric); F17.210 Nicotine dependence, cigarettes, uncomplicated; M19.90 Unspecified osteoarthritis, unspecified site; G47.419 Narcolepsy without cataplexy; F43.10 Post-traumatic stress disorder, unspecified; F32.9 Major depressive disorder, single episode, unspecified; F41.1 Generalized anxiety disorder; Z90.49 Acquired absence of other specified parts of digestive tract; Z79.899 Other long term (current) drug therapy; Z99.89 Dependence on other enabling machines and devices; V89.2XXD Person injured in unspecified motor-vehicle accident, traffic, subsequent encounter
CPT/HCPCS: 36415; 76000; 80053; 85025; 87635; A4306; C1713; J0690; J1885; J2250; J2370; J2405; J2704; J2795; J3010; J3490; S0020; U0003

== ENCOUNTER 2020-01-03 04:53 | Emergency (ER) | payer MEDICARE, OTHER ==
[2020-01-03] MEDS ORDERED: Acetaminophen 500 MG TAB ONE (05:09)
[2020-01-03 05:39] LABS: ALT (SGPT) 8 U/L (8-55); AST (SGOT) 18 U/L (5-34); Albumin 3.6 g/dL (3.4-4.8); Alkaline Phosphatase 96 U/L (40-110); Anion Gap 15 mmol/L (10-20); BUN (Urea Nitrogen) 21 mg/dL (8.4-25.7); Bilirubin, Total 0.3 mg/dL (0.2-1.2); Calc. Creatinine Clearance 0 mL/min (70-130); Calcium 8.7 mg/dL (7.8-10.44); Carbon Dioxide 25 mmol/L (23-31); Chloride 99 mmol/L (98-107); Estimated GFR-MDRD 74; Globulin 4.3 g/dL (2.4-3.5); Glucose 117 mg/dL (80-115); Potassium 4.1 mmol/L (3.5-5.1); Protein, Total 7.9 g/dL (5.8-8.1); Sodium 135 mmol/L (136-145)
[2020-01-03 05:48] LABS: #Eosinphils 0.3 thou/uL (0.0-0.7); #Lymphocytes 0.9 thou/uL (1.20-3.40); #Monocytes 0.7 thou/uL (0.11-0.59); %Basophils 0.3 % (0.0-1.0); %Eosinophils 5.7 % (0.0-10.0); %Lymphocytes 19.1 % (21.0-51.0); %Monocytes 14.9 % (0.0-10.0); Hemoglobin 12.8 g/dL (14.0-18.0); Mean Corpuscular HGB CONC 33.1 g/dL (32.0-36.0); Mean Corpuscular Hemoglobin 29.2 pg (27.0-31.0); Mean Corpuscular Volume 88.2 fL (78.0-98.0); Mean Platelet Volume 8.6 fL (7.4-10.4); Platelet Count 185 thou/uL (130-400); RBC Distribution Width 14.1 % (11.5-14.5); Red Blood Cell (RBC) Count 4.38 mill/uL (4.70-6.10); White Blood Cell (WBC) Count 4.9 thou/uL (4.8-10.8)
[2020-01-03 06:59] LABS: Bacteria/HPF None Seen HPF (None Seen); Bilirubin Negative (Negative); Blood, Urine Trace (Negative); Clarity Clear (Clear); Glucose, Urine (Dipstick) Normal (Negative); Ketone, Urine Negative (Negative); Leukocyte Negative Leu/uL (Negative); Nitrite Negative (Negative); Protein, Urine (Dipstick) 10 mg/dL (Neg-Trace); Specific Gravity, Urine 1.019 (1.002-1.036); Squamous Epithelial 0-3 HPF (0-3); Urobilinogen Normal mg/dL (Less than 2); WBC/HPF 0-3 HPF (0-3); pH, Urine 6.5 (5.0-9.0)
--- NOTE | 2020-01-03 07:25 | RAD ---
Exam: Chest one view HISTORY:Postoperative fever Comparison: 11/29/2019 FINDINGS: Cardiac silhouette: Normal Aorta: Unremarkable Pulmonary vessels: Normal Costophrenic angles: Clear LUNGS: No masses or consolidation. Pneumothorax: None Osseous abnormalities: None IMPRESSION: No acute cardiopulmonary process.
[2020-01-03] MEDS ORDERED: Ibuprofen 800 MG TAB ONE (07:31)
[2020-01-04 11:19] LABS: SARS-CoV-2 MS2 Negative; SARS-CoV-2 N Gene Positive; SARS-CoV-2 S Gene Positive; SARS-CoV-2 by NAA DETECTED (NotDetected); SARS-CoV-2 orf1ab Positive
== END 2020-01-03 08:12 | disposition home or self-care (01) ==
LOC: ERS 04:53
DX: U07.1 COVID-19 (principal)
CPT/HCPCS: 71045; 80053; 81003; 81015; 83605; 85025; 87635; 87804; 93005; U0003

== ENCOUNTER 2020-01-09 09:58 | Inpatient (IN) | payer MEDICARE, OTHER ==
[2020-01-09] MEDS ORDERED: Dexamethasone 4 mg/ml Vial ONE (10:31)
[2020-01-09 11:26] LABS: Actual Bicarbonate (HCO3a) 20.1 mEq/L (22-28); Analyzer IN Cardio ER; Base Excess (BEa) -1.8 mEq/L (-2.0 to +3.0); Calcium, Ionized (arterial) 1.08 mmol/L (1.12-1.30); Carboxyhemoglobin (COHb) 0.3 gm% (0.0-3.0); Hemoglobin (Hb) 11.4 g/dL (14.0-18.0); Potassium - ABG Lab 3.53 mmol/L (3.70-5.30); pH, Arterial 7.51 (7.35-7.45)
[2020-01-09 11:31] LABS: CO2 Tension 25.8 mmHg (35.0-45.0)
[2020-01-09 11:32] LABS: Puncture Site RRA
[2020-01-09 12:26] LABS: #Lymphocytes 0.9 thou/uL (1.20-3.40); #Monocytes 0.5 thou/uL (0.11-0.59); #Neutrophils 6.3 thou/uL (1.40-6.50); %Basophils 0.2 % (0.0-1.0); %Eosinophils 0.1 % (0.0-10.0); %Neutrophils 81.7 % (42.0-75.0); Hemoglobin 11.4 g/dL (14.0-18.0); Mean Corpuscular HGB CONC 32.6 g/dL (32.0-36.0); Mean Corpuscular Hemoglobin 27.8 pg (27.0-31.0); Mean Corpuscular Volume 85.2 fL (78.0-98.0); Mean Platelet Volume 8.8 fL (7.4-10.4); Platelet Count 285 thou/uL (130-400); RBC Distribution Width 14.4 % (11.5-14.5); White Blood Cell (WBC) Count 7.7 thou/uL (4.8-10.8)
[2020-01-09 12:37] LABS: ALT (SGPT) 18 U/L (8-55); AST (SGOT) 46 U/L (5-34); Albumin 3.3 g/dL (3.4-4.8); Alkaline Phosphatase 89 U/L (40-110); Anion Gap 16 mmol/L (10-20); BUN (Urea Nitrogen) 19 mg/dL (8.4-25.7); Bilirubin, Total 0.4 mg/dL (0.2-1.2); Calc. Creatinine Clearance 0 mL/min (70-130); Calcium 8.4 mg/dL (7.8-10.44); Carbon Dioxide 22 mmol/L (23-31); Chloride 96 mmol/L (98-107); Estimated GFR-MDRD 83; Glucose 105 mg/dL (80-115); Potassium 3.6 mmol/L (3.5-5.1); Protein, Total 7.3 g/dL (5.8-8.1); Sodium 130 mmol/L (136-145)
[2020-01-09] MEDS ORDERED: Iopamidol-370 76% 500 ML 1 ML ONE (13:04)
[2020-01-09 13:07] LABS: Lactic Acid 1.3 mmol/L (0.5-2.2)
--- NOTE | 2020-01-09 15:14 | CT ---
CT arteriogram chest with IV contrast and 3-D imaging HISTORY: Dyspnea. COVID positive. COMPARISON: 11/29/2019. FINDINGS: There is good contrast opacification pulmonary arteries and thoracic aorta. Prominent wides pread patchy areas of groundglass infiltrate and interstitial thickening are predominantly peripheral. No pleural fluid. Borderline size reactive appearing lymph nodes throughout the mediastin um. 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 Within the partially visualized upper abdomen, bariatric lap band and nonspecific retroperitoneal lym ph nodes are again demonstrated. IMPRESSION : No evidence of pulmonary embolus. CT findings of COVID pneumonitis.
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
[2020-01-09] MEDS ORDERED: Ondansetron ODT 4 MG TAB SL PRN (20:30)
[2020-01-09] MEDS ORDERED: Acetaminophen 325 MG TAB PO PRN (20:30)
[2020-01-09] MEDS ORDERED: Ondansetron PF 4 MG/2 ML Vial IVP PRN ×2 (20:30→20:49)
[2020-01-09] MEDS ORDERED: Acetaminophen 650 MG Suppository PR PRN (20:49)
[2020-01-09] MEDS ORDERED: Guaifenesin DM 100-10/5 ML UDCUP PO PRN (20:49)
[2020-01-09] MEDS ORDERED: Senokot S 8.6-50 MG TAB PO PRN (20:49)
[2020-01-09] MEDS ORDERED: Ondansetron ODT 4 MG TAB PO PRN (20:49)
[2020-01-09 20:51] VITALS: BMI 40.2
[2020-01-09] MEDS: Enoxaparin Sodium 40 MG/0.4 ML SYRINGE SC SCH (21:53)
[2020-01-09] MEDS: Famotidine 20 MG TAB PO SCH (21:53)
[2020-01-09] MEDS ORDERED: REMDESIVIR (EUA) 200 MG in Sodium Chloride 0.9% 250 ML 210 ML IV SCH (22:00)
[2020-01-10 06:43] LABS: #Lymphocytes 0.7 thou/uL (1.20-3.40); #Monocytes 0.8 thou/uL (0.11-0.59); #Neutrophils 6.5 thou/uL (1.40-6.50); %Basophils 0.3 % (0.0-1.0); %Lymphocytes 8.3 % (21.0-51.0); %Monocytes 10.2 % (0.0-10.0); %Neutrophils 81.2 % (42.0-75.0); Hemoglobin 10.4 g/dL (14.0-18.0); Mean Corpuscular HGB CONC 32.9 g/dL (32.0-36.0); Mean Corpuscular Hemoglobin 27.8 pg (27.0-31.0); Mean Corpuscular Volume 84.3 fL (78.0-98.0); Mean Platelet Volume 8.3 fL (7.4-10.4); Platelet Count 268 thou/uL (130-400); RBC Distribution Width 14.2 % (11.5-14.5); Red Blood Cell (RBC) Count 3.74 mill/uL (4.70-6.10)
[2020-01-10 07:04] LABS: Anion Gap 13 mmol/L (10-20); BUN (Urea Nitrogen) 28 mg/dL (8.4-25.7); Calc. Creatinine Clearance 176 mL/min (70-130); Calcium 8.1 mg/dL (7.8-10.44); Carbon Dioxide 23 mmol/L (23-31); Chloride 100 mmol/L (98-107); Estimated GFR-MDRD Greater than 90; Glucose 132 mg/dL (80-115); Potassium 3.4 mmol/L (3.5-5.1); Sodium 133 mmol/L (136-145)
[2020-01-10] MEDS: Famotidine 20 MG TAB PO SCH ×2 (08:12→21:04)
[2020-01-10] MEDS: Venlafaxine HCl XR 75 MG CAP PO SCH (08:12)
[2020-01-10] MEDS: Dexamethasone 4 MG TAB PO SCH (08:12)
[2020-01-10] MEDS: Losartan 25 MG TAB PO SCH (08:13)
[2020-01-10] MEDS: Enoxaparin Sodium 40 MG/0.4 ML SYRINGE SC SCH ×2 (08:13→21:03)
[2020-01-10] MEDS: Aspirin 81 mg Enteric Coated Tablet PO SCH (08:13)
[2020-01-10] MEDS: Tamsulosin HCl 0.4 MG CAP PO SCH (08:13)
[2020-01-10] MEDS: Fluticasone Propionate Nasal Spray 16 gm Bottle NASAL SCH (08:36)
--- NOTE | 2020-01-10 15:54 | PDOC.HOSPP ---
- Subjective Encounter Date: 01/10/20 Encounter Time: 15:50 Subjective: f/u for COVID PNA on current Dexamethasone/Lovenox/Remdesivir/O2 @ 5L/min NC. - Objective Vital Signs & Weight: Vital Signs (12 hours) Temp Pulse Pulse Pulse Resp BP BP 01/10/20 15:34 97.7 F 59 L 20 01/10/20 12:00 97.7 F 68 20 01/10/20 10:16 68 112/58 L 01/10/20 10:15 68 112/58 L 01/10/20 09:00 01/10/20 08:37 97.5 F L 68 20 01/10/20 04:00 67 20 BP BP Pulse Ox Pulse Ox Pulse Ox Pulse Ox 01/10/20 15:34 95/58 L 94 L 01/10/20 12:00 95/57 L 92 L 01/10/20 10:16 93 L 81 L 92 L 01/10/20 10:15 93 L 92 L 01/10/20 09:00 90 L 01/10/20 08:37 96/53 L 90 L 01/10/20 04:00 102/60 94 L Weight Admit Weight 305 lb 3.2 oz Weight 305 lb 3.2 oz Result Diagrams: 01/10/20 06:23 01/10/20 06:23 Additional Labs: Microbiology 01/03/20 07:35 Nasal swab Influenza Types A,B Direct EIA - Final 01/09/20 12:51 Venous blood - Right Arm Blood Culture - Preliminary Specimen has been received and culture in progress. No Growth to date. Laboratory Tests 01/09/20 01/09/20 01/09/20 10:41 10:41 10:41 Hgb 11.4 L Neutrophils % 81.7 H D-Dimer 6.85 H Sodium 130 L Potassium 3.6 Laboratory Tests 01/03/20 07:35 SARS-CoV-2 (PCR) DETECTED A* Radiology Reviewed by me: Yes (CTA chest - bilat infiltrates, no PE) Hospitalist ROS - Medication Medications: Active Medications Generic Name Dose Route Start Last Admin Trade Name Freq PRN Reason Stop Dose Admin Aspirin 81 mg 01/10/20 09:00 01/10/20 08:13 Aspirin 81 Mg Enteric Coated Tablet PO 81 mg DAILY EVERT Administration Dexamethasone 6 mg 01/10/20 08:00 01/10/20 08:12 Dexamethasone 4 Mg Tab PO 6 mg QAM-WM EVERT Administration Enoxaparin Sodium 40 mg 01/09/20 21:00 01/10/20 08:13 Enoxaparin Sodium 40 Mg/0.4 Ml Syringe SC 40 mg 0900,2100 EVERT Administration Famotidine 20 mg 01/09/20 21:00 01/10/20 08:12 Famotidine 20 Mg Tab PO 20 mg BID EVERT Administration Fluticasone Propionate 0 gm 01/10/20 09:00 01/10/20 08:36 Fluticasone Propionate Nasal [place] 16 Gm Bottle NASAL 2 spr DAILY EVERT Administration Losartan Potassium 100 mg 01/10/20 09:00 01/10/20 08:13 Losartan 25 Mg Tab PO 100 mg QAM EVERT Administration Sertraline HCl 100 mg 01/10/20 09:00 01/10/20 08:13 Sertraline Hcl 100 Mg Tab PO 100 mg DAILY EVERT Administration Tamsulosin HCl 0.4 mg 01/10/20 09:00 01/10/20 08:13 Tamsulosin Hcl 0.4 Mg Cap PO 0.4 mg QAM EVERT Administration Venlafaxine HCl 75 mg 01/10/20 09:00 01/10/20 08:12 Venlafaxine Hcl Xr 75 Mg Cap PO 75 mg QAM EVERT Administration - Exam General Appearance: NAD, awake alert Eye: PERRL, anicteric sclera ENT: normocephalic atraumatic, no oropharyngeal lesions Neck: supple, symmetric, no JVD, no thyromegaly, no lymphadenopathy Heart: RRR, no gallops, no rubs, normal peripheral pulses Heart - other findings: S1, S2 Respiratory - other findings: diminished bilat, few scattered rhonchi Gastrointestinal: soft, non-tender, non-distended, normal bowel sounds, no palpable masses Gastrointestinal - other findings: obese Extremities: no cyanosis, no clubbing Skin: normal turgor, no lesions Neurological: cranial nerve grossly intact, no new deficit Musculoskeletal: normal tone, generalized weakness Psychiatric: normal affect, A&O x 3 Hosp A/P (1) Pneumonia due to COVID-19 virus Code(s): U07.1 - COVID-19; J12.89 - OTHER VIRAL PNEUMONIA Status: Acute (2) Acute respiratory failure with hypoxia Code(s): J96.01 - ACUTE RESPIRATORY FAILURE WITH HYPOXIA Status: Acute (3) Hyponatremia Code(s): E87.1 - HYPO-OSMOLALITY AND HYPONATREMIA Status: Acute (4) Hypokalemia Code(s): E87.6 - HYPOKALEMIA Status: Acute (5) Morbid obesity Code(s): E66.01 - MORBID (SEVERE) OBESITY DUE TO EXCESS CALORIES Status: Acute (6) HTN (hypertension) Code(s): I10 - ESSENTIAL (PRIMARY) HYPERTENSION Status: Chronic Qualifiers: Hypertension type: essential hypertension Qualified Code(s): I10 - Essential (primary) hypertension - Plan plan discussed w/ family, continue antibiotics, PT/OT, social service assistant, respiratory therapy Continue Dexamethasone Start Zithromax 500mg IV daily Continue Remdesivir Add Vit C/Zinc WCT for local care of L foot AM lab: BMP, CRP, D-dimer, Ferritin
[2020-01-10] MEDS: Azithromycin 500 MG in Sodium Chloride 0.9% 250 ML 250 ML IVPB SCH (17:47)
[2020-01-10] MEDS ORDERED: Dextroamphetamine/Amphetamine [Adderall Xr 20 Mg Capsule] PO SCH (21:00)
[2020-01-10] MEDS: REMDESIVIR (EUA) 100 MG in Sodium Chloride 0.9% 250 ML 230 ML IV SCH (21:03)
[2020-01-11 07:41] LABS: ALT (SGPT) 19 U/L (8-55); AST (SGOT) 37 U/L (5-34); Alkaline Phosphatase 106 U/L (40-110); Bilirubin, Direct 0.2 mg/dL (0.1-0.3); Bilirubin, Total 0.3 mg/dL (0.2-1.2); Protein, Total 6.5 g/dL (5.8-8.1)
[2020-01-11] MEDS: Dexamethasone 4 MG TAB PO SCH (08:10)
[2020-01-11] MEDS: Famotidine 20 MG TAB PO SCH ×2 (08:11→20:59)
[2020-01-11] MEDS: Nicotine 21 MG PATCH TD SCH (08:11)
[2020-01-11] MEDS: Ascorbic Acid 500 mg Chewable Tablet PO SCH (08:11)
[2020-01-11] MEDS: Enoxaparin Sodium 40 MG/0.4 ML SYRINGE SC SCH ×2 (08:11→20:59)
[2020-01-11] MEDS: Multivitamin W/ Minerals 1 TAB PO SCH (08:11)
[2020-01-11] MEDS: Venlafaxine HCl XR 75 MG CAP PO SCH (08:11)
[2020-01-11] MEDS: Tamsulosin HCl 0.4 MG CAP PO SCH (08:11)
[2020-01-11] MEDS: Aspirin 81 mg Enteric Coated Tablet PO SCH (08:11)
[2020-01-11] MEDS: Losartan 25 MG TAB PO SCH (08:12)
[2020-01-11] MEDS: Zinc Sulfate 220 MG CAP PO SCH (08:14)
[2020-01-11] MEDS: Fluticasone Propionate Nasal Spray 16 gm Bottle NASAL SCH (08:29)
[2020-01-11] MEDS: Acetaminophen 325 MG TAB PO PRN (09:42)
[2020-01-11] MEDS ORDERED: traMADol HCl 50 MG TAB PO PRN (09:56)
--- NOTE | 2020-01-11 10:27 | PDOC.HOSPP ---
- Subjective Encounter Date: 01/11/20 Encounter Time: 10:20 Subjective: f/u for COVID PNA and LLE ulcer with wound vac receiving Zithromax/Dexamethasone/Remdesivir/Lovenox. c/o L foot pain after receiving WCT and dressing change. Remains on O2 @ 4.5L/min NC. - Objective Vital Signs & Weight: Vital Signs (12 hours) Temp Pulse Resp BP Pulse Ox 01/11/20 08:00 98.7 F 61 18 125/68 93 L 01/11/20 00:00 98.3 F 72 18 115/68 95 Weight Admit Weight 305 lb 3.2 oz Weight 305 lb 3.2 oz I&O: 01/10/20 01/11/20 01/12/20 06:59 06:59 06:59 Intake Total 950 Output Total 700 Balance 250 Result Diagrams: 01/10/20 06:23 01/10/20 06:23 Additional Labs: Microbiology 01/03/20 07:35 Nasal swab Influenza Types A,B Direct EIA - Final 01/09/20 12:51 Venous blood - Right Arm Blood Culture - Preliminary Specimen has been received and culture in progress. No Growth to date. Laboratory Tests 01/03/20 01/09/20 01/09/20 07:35 10:41 10:41 Hgb 11.4 L Neutrophils % 81.7 H D-Dimer Sodium 130 L Potassium 3.6 SARS-CoV-2 (PCR) DETECTED A* 01/09/20 10:41 Hgb Neutrophils % D-Dimer 6.85 H Sodium Potassium SARS-CoV-2 (PCR) Microbiology 01/03/20 07:35 Nasal swab Influenza Types A,B Direct EIA - Final 01/09/20 12:51 Venous blood - Right Arm Blood Culture - Preliminary Specimen has been received and culture in pr ogress. No Growth to date. Laboratory Tests 01/03/20 01/09/20 01/09/20 07:35 10:41 10:41 Hgb 11.4 L Neutrophils % 81.7 H D-Dimer Sodium 130 L Potassium 3.6 Ferritin C-Reactive Protein SARS-CoV-2 (PCR) DETECTED A* 01/09/20 01/11/20 01/11/20 10:41 05:53 05:53 Hgb Neutrophils % D-Dimer 6.85 H Sodium Potassium Ferritin 1224.54 H C-Reactive Protein 8.32 H SARS-CoV-2 (PCR) 01/11/20 05:53 Hgb Neutrophils % D-Dimer Greater than 20.00 H Sodium Potassium Ferritin C-Reactive Protein SARS-CoV-2 (PCR) Hospitalist ROS - Medication Medications: Active Medications Generic Name Dose Route Start Last Admin Trade Name Freq PRN Reason Stop Dose Admin Acetaminophen 650 mg 01/09/20 20:49 01/11/20 09:42 Acetaminophen 325 Mg Tab PO 650 mg Q4H PRN Administration Headache/Fever/Mild Pain (1-3) Ascorbic Acid 1,000 mg 01/11/20 09:00 01/11/20 08:11 Ascorbic Acid 500 Mg Chewable Tablet PO 1,000 mg DAILY EVERT Administration Aspirin 81 mg 01/10/20 09:00 01/11/20 08:11 Aspirin 81 Mg Enteric Coated Tablet PO 81 mg DAILY EVERT Administration Dexamethasone 6 mg 01/10/20 08:00 01/11/20 08:10 Dexamethasone 4 Mg Tab PO 6 mg QAM-WM EVERT Administration Enoxaparin Sodium 40 mg 01/09/20 21:00 01/11/20 08:11 Enoxaparin Sodium 40 Mg/0.4 Ml Syringe SC 40 mg 0900,2100 EVERT Administration Famotidine 20 mg 01/09/20 21:00 01/11/20 08:11 Famotidine 20 Mg Tab PO 20 mg BID EVERT Administration Fluticasone Propionate 0 gm 01/10/20 09:00 01/11/20 08:29 Fluticasone Propionate Nasal [place] 16 Gm Bottle NASAL 2 spr DAILY EVERT Administration Remdesivir 100 mg/ Sodium 250 mls @ 250 mls/hr 01/10/20 22:00 01/10/20 21:03 Chloride IV 01/13/20 22:59 250 mls Q24HR EVERT Administration Azithromycin 500 mg/ Sodium 250 mls @ 250 mls/hr 01/10/20 18:00 01/10/20 17:47 Chloride IVPB 250 mls 1800 EVERT Administration Iron/Minerals/Multivitamins 1 tab 01/11/20 09:00 01/11/20 08:11 Multivitamin W/ Minerals 1 Tab PO 1 tab DAILY EVERT Administration Losartan Potassium 100 mg 01/10/20 09:00 01/11/20 08:12 Losartan 25 Mg Tab PO 100 mg QAM EVERT Administration Nicotine 21 mg 01/11/20 09:00 01/11/20 08:11 Nicotine 21 Mg Patch TD 21 mg DAILY EVERT Administration Sertraline HCl 100 mg 01/10/20 09:00 01/11/20 08:11 Sertraline Hcl 100 Mg Tab PO 100 mg DAILY EVERT Administration Tamsulosin HCl 0.4 mg 01/10/20 09:00 01/11/20 08:11 Tamsulosin Hcl 0.4 Mg Cap PO 0.4 mg QAM EVERT Administration Venlafaxine HCl 75 mg 01/10/20 09:00 01/11/20 08:11 Venlafaxine Hcl Xr 75 Mg Cap PO 75 mg QAM EVERT Administration Zinc Sulfate 220 mg 01/11/20 09:00 01/11/20 08:14 Zinc Sulfate 220 Mg Cap PO 220 mg DAILY EVERT Administration - Exam General Appearance: NAD, awake alert Eye: PERRL, anicteric sclera ENT: normocephalic atraumatic, no oropharyngeal lesions Neck: supple, symmetric, no JVD, no thyromegaly, no lymphadenopathy Heart: RRR, no gallops, no rubs, normal peripheral pulses Respiratory: tachypneic Respiratory - other findings: diminished in bases, few exp wheezes Gastrointestinal: soft, non-tender, non-distended, normal bowel sounds, no palpable masses Extremities: no cyanosis, no edema Extremities - other findings: LLE with Kerlex/PORFIRIO wrap and wound vac on heel Skin: normal turgor Neurological: cranial nerve grossly intact, no new deficit Hosp A/P (1) Pneumonia due to COVID-19 virus Code(s): U07.1 - COVID-19; J12.89 - OTHER VIRAL PNEUMONIA Status: Acute Plan: Continue Zithromax/Dexamethasone/Lovenox/Remdesivir, continue O2 supplementation (2) Acute respiratory failure with hypoxia Code(s): J96.01 - ACUTE RESPIRATORY FAILURE WITH HYPOXIA Status: Acute Plan: See #1 above (3) Hyponatremia Code(s): E87.1 - HYPO-OSMOLALITY AND HYPONATREMIA Status: Acute (4) Hypokalemia Code(s): E87.6 - HYPOKALEMIA Status: Acute Plan: KCL 40meq BID, serial K+ monitoring (5) Morbid obesity Code(s): E66.01 - MORBID (SEVERE) OBESITY DUE TO EXCESS CALORIES Status: Acute (6) HTN (hypertension) Code(s): I10 - ESSENTIAL (PRIMARY) HYPERTENSION Status: Chronic Qualifiers: Hypertension type: essential hypertension Qualified Code(s): I10 - Essential (primary) hypertension (7) Heel ulcer due to DM Code(s): E11.621 - TYPE 2 DIABETES MELLITUS WITH FOOT ULCER; L97.409 - NON-PRS CHRONIC ULCER OF UNSP HEEL AND MIDFOOT W UNSP SEVERT Status: Chronic Qualifiers: Diabetes mellitus type: type 2 Plan: s/p I&D with wound vac, continue local WCT - Plan continue antibiotics, PT/OT, case management social worker, respiratory therapy Continue Dexamethasone Continue Zithromax 500mg IV daily Continue Remdesivir Add Vit C/Zinc WCT for local care of L foot KCL 40meq BID AM lab: BMP, CRP, D-dimer, Ferritin
[2020-01-11] MEDS ORDERED: Potassium Chloride 20 MEQ TAB PO SCH (10:45)
[2020-01-11] MEDS: Potassium Chloride 20 MEQ TAB PO SCH (17:03)
[2020-01-11] MEDS: Azithromycin 500 MG in Sodium Chloride 0.9% 250 ML 250 ML IVPB SCH (17:03)
[2020-01-11] MEDS: REMDESIVIR (EUA) 100 MG in Sodium Chloride 0.9% 250 ML 230 ML IV SCH (21:00)
[2020-01-12 08:11] LABS: Anion Gap 15 mmol/L (10-20); BUN (Urea Nitrogen) 29 mg/dL (8.4-25.7); CRP (Inflammatory) 5.05 mg/dL (= or < 0.5); Calc. Creatinine Clearance 178 mL/min (70-130); Calcium 7.8 mg/dL (7.8-10.44); Carbon Dioxide 22 mmol/L (23-31); Chloride 104 mmol/L (98-107); Estimated GFR-MDRD Greater than 90; Glucose 78 mg/dL (80-115); Potassium 3.7 mmol/L (3.5-5.1); Sodium 137 mmol/L (136-145)
[2020-01-12] MEDS: Fluticasone Propionate Nasal Spray 16 gm Bottle NASAL SCH (08:55)
[2020-01-12] MEDS: Multivitamin W/ Minerals 1 TAB PO SCH (09:04)
[2020-01-12] MEDS: Famotidine 20 MG TAB PO SCH ×2 (09:04→21:11)
[2020-01-12] MEDS: Zinc Sulfate 220 MG CAP PO SCH (09:04)
[2020-01-12] MEDS: Ascorbic Acid 500 mg Chewable Tablet PO SCH (09:04)
[2020-01-12] MEDS: Tamsulosin HCl 0.4 MG CAP PO SCH (09:04)
[2020-01-12] MEDS: Venlafaxine HCl XR 75 MG CAP PO SCH (09:04)
[2020-01-12] MEDS: Losartan 25 MG TAB PO SCH (09:05)
[2020-01-12] MEDS: Dexamethasone 4 MG TAB PO SCH (09:05)
[2020-01-12] MEDS: Aspirin 81 mg Enteric Coated Tablet PO SCH (09:05)
[2020-01-12] MEDS: Potassium Chloride 20 MEQ TAB PO SCH ×2 (09:05→17:52)
[2020-01-12] MEDS: Nicotine 21 MG PATCH TD SCH (09:06)
[2020-01-12] MEDS: Enoxaparin Sodium 40 MG/0.4 ML SYRINGE SC SCH ×2 (09:06→21:11)
--- NOTE | 2020-01-12 11:32 | PDOC.HOSPP ---
- Subjective Encounter Date: 01/12/20 Encounter Time: 11:25 Subjective: f/u for COVID PNA on Dexamethasone/Remdesivir/Zithromax/Lovenox/O2 @ 4.5L/min NC. Feels overall weak but less SOB. L foot feels better today. - Objective Vital Signs & Weight: Vital Signs (12 hours) Temp Pulse Resp BP Pulse Ox 01/12/20 05:10 97.8 F 56 L 16 120/68 91 L 01/12/20 04:00 97.8 F 60 18 128/68 92 L 01/12/20 00:00 98.3 F 61 18 123/72 94 L Weight Admit Weight 305 lb 3.2 oz Weight 305 lb 3.2 oz I&O: 01/11/20 01/12/20 01/13/20 06:59 06:59 06:59 Intake Total 950 1210 Output Total 700 Balance 250 1210 Result Diagrams: 01/10/20 06:23 01/12/20 07:21 Additional Labs: Microbiology 01/03/20 07:35 Nasal swab Influenza Types A,B Direct EIA - Final 01/09/20 12:51 Venous blood - Right Arm Blood Culture - Preliminary Specimen has been received and culture in progress. No Growth to date. Laboratory Tests 01/03/20 01/09/20 01/09/20 07:35 10:41 10:41 Hgb 11.4 L Neutrophils % 81.7 H D-Dimer Sodium 130 L Potassium 3.6 Ferritin C-Reactive Protein SARS-CoV-2 (PCR) DETECTED A* 01/09/20 01/11/20 01/11/20 10:41 05:53 05:53 Hgb Neutrophils % D-Dimer 6.85 H Sodium Potassium Ferritin 1224.54 H C-Reactive Protein 8.32 H SARS-CoV-2 (PCR) 01/11/20 05:53 Hgb Neutrophils % D-Dimer Greater than 20.00 H Sodium Potassium Ferritin C-Reactive Protein SARS-CoV-2 (PCR) Hospitalist ROS - Medication Medications: Active Medications Generic Name Dose Route Start Last Admin Trade Name Freq PRN Reason Stop Dose Admin Acetaminophen 650 mg 01/09/20 20:49 01/11/20 09:42 Acetaminophen 325 Mg Tab PO 650 mg Q4H PRN Administration Headache/Fever/Mild Pain (1-3) Ascorbic Acid 1,000 mg 01/11/20 09:00 01/12/20 09:04 Ascorbic Acid 500 Mg Chewable Tablet PO 1,000 mg DAILY EVERT Administration Aspirin 81 mg 01/10/20 09:00 01/12/20 09:05 Aspirin 81 Mg Enteric Coated Tablet PO 81 mg DAILY EVERT Administration Dexamethasone 6 mg 01/10/20 08:00 01/12/20 09:05 Dexamethasone 4 Mg Tab PO 6 mg QAM-WM EVERT Administration Enoxaparin Sodium 40 mg 01/09/20 21:00 01/12/20 09:06 Enoxaparin Sodium 40 Mg/0.4 Ml Syringe SC 40 mg 0900,2100 EVERT Administration Famotidine 20 mg 01/09/20 21:00 01/12/20 09:04 Famotidine 20 Mg Tab PO 20 mg BID EVERT Administration Fluticasone Propionate 0 gm 01/10/20 09:00 01/11/20 08:29 Fluticasone Propionate Nasal [place] 16 Gm Bottle NASAL 2 spr DAILY EVERT Administration Remdesivir 100 mg/ Sodium 250 mls @ 250 mls/hr 01/10/20 22:00 01/11/20 21:00 Chloride IV 01/13/20 22:59 250 mls Q24HR EVERT Administration Azithromycin 500 mg/ Sodium 250 mls @ 250 mls/hr 01/10/20 18:00 01/11/20 17:03 Chloride IVPB 250 mls 1800 EVERT Administration Iron/Minerals/Multivitamins 1 tab 01/11/20 09:00 01/12/20 09:04 Multivitamin W/ Minerals 1 Tab PO 1 tab DAILY EVERT Administration Losartan Potassium 100 mg 01/10/20 09:00 01/12/20 09:05 Losartan 25 Mg Tab PO 100 mg QAM EVERT Administration Nicotine 21 mg 01/11/20 09:00 01/12/20 09:06 Nicotine 21 Mg Patch TD 21 mg DAILY EVERT Administration Potassium Chloride 40 meq 01/11/20 17:00 01/12/20 09:05 Potassium Chloride 20 Meq Tab PO 40 meq BID-WM EVERT Administration Sertraline HCl 100 mg 01/10/20 09:00 01/12/20 09:05 Sertraline Hcl 100 Mg Tab PO 100 mg DAILY EVERT Administration Sodium Chloride 10 ml 01/11/20 21:00 01/12/20 09:06 Flush - Normal Saline 10 Ml Syringe IVF 10 ml Q12HR EVERT Administration Tamsulosin HCl 0.4 mg 01/10/20 09:00 01/12/20 09:04 Tamsulosin Hcl 0.4 Mg Cap PO 0.4 mg QAM EVERT Administration Venlafaxine HCl 75 mg 01/10/20 09:00 01/12/20 09:04 Venlafaxine Hcl Xr 75 Mg Cap PO 75 mg QAM EVERT Administration Zinc Sulfate 220 mg 01/11/20 09:00 01/12/20 09:04 Zinc Sulfate 220 Mg Cap PO 220 mg DAILY EVERT Administration - Exam General Appearance: NAD, awake alert Eye: PERRL, anicteric sclera ENT: normocephalic atraumatic, no oropharyngeal lesions Neck: supple, symmetric, no JVD, no thyromegaly, no lymphadenopathy Heart: RRR, no gallops, no rubs, normal peripheral pulses Heart - other findings: S1, S2 Respiratory - other findings: few scattered rhonchi/wheezing, diminished in bases Gastrointestinal: soft, non-tender, non-distended, normal bowel sounds, no palpable masses Gastrointestinal - other findings: obese Extremities: no cyanosis, no clubbing Extremities - other findings: L foot ulcer with dressings in place Skin: normal turgor Neurological: cranial nerve grossly intact, no new deficit Musculoskeletal: normal tone, generalized weakness Psychiatric: normal affect, A&O x 3 Hosp A/P (1) Pneumonia due to COVID-19 virus Code(s): U07.1 - COVID-19; J12.89 - OTHER VIRAL PNEUMONIA Status: Acute Plan: Continue Dexamethasone/Remedesivir/Lovenox/Zithromax/Vit C/Zinc/O2 @ 4.5L/min NC (2) Acute respiratory failure with hypoxia Code(s): J96.01 - ACUTE RESPIRATORY FAILURE WITH HYPOXIA Status: Acute Plan: Continue O2 supplementation and wean as clinically indicated (3) Hyponatremia Code(s): E87.1 - HYPO-OSMOLALITY AND HYPONATREMIA Status: Acute Plan: Resolved (4) Hypokalemia Code(s): E87.6 - HYPOKALEMIA Status: Acute Plan: Resolved (5) Morbid obesity Code(s): E66.01 - MORBID (SEVERE) OBESITY DUE TO EXCESS CALORIES Status: Acute (6) HTN (hypertension) Code(s): I10 - ESSENTIAL (PRIMARY) HYPERTENSION Status: Chronic Qualifiers: Hypertension type: essential hypertension Qualified Code(s): I10 - [place] l (primary) hypertension (7) Heel ulcer due to DM Code(s): E11.621 - TYPE 2 DIABETES MELLITUS WITH FOOT ULCER; L97.409 - NON-PRS CHRONIC ULCER OF UNSP HEEL AND MIDFOOT W UNSP SEVERT Status: Chronic Qualifiers: Diabetes mellitus type: type 2 Plan: WCT for local care, wound vac application - Plan continue antibiotics, PT/OT, social welfare research worker, respiratory therapy, out of bed/ambulate Continue Dexamethasone Continue Zithromax 500mg IV daily Continue Remdesivir Add Vit C/Zinc WCT for local care of L foot KCL 40meq BID AM lab: CRP, D-dimer, Ferritin
[2020-01-12] MEDS: Azithromycin 500 MG in Sodium Chloride 0.9% 250 ML 250 ML IVPB SCH (17:53)
[2020-01-12] MEDS: REMDESIVIR (EUA) 100 MG in Sodium Chloride 0.9% 250 ML 230 ML IV SCH (21:32)
[2020-01-13] MEDS ORDERED: Melatonin 3 MG TAB PO PRN (02:16)
[2020-01-13] MEDS ORDERED: ALPRAZolam 0.5 MG TAB PO SCH (02:30)
[2020-01-13] MEDS: Multivitamin W/ Minerals 1 TAB PO SCH (09:26)
[2020-01-13] MEDS: Venlafaxine HCl XR 75 MG CAP PO SCH (09:26)
[2020-01-13] MEDS: Potassium Chloride 20 MEQ TAB PO SCH ×2 (09:26→17:00)
[2020-01-13] MEDS: Famotidine 20 MG TAB PO SCH (09:27)
[2020-01-13] MEDS: Tamsulosin HCl 0.4 MG CAP PO SCH (09:27)
[2020-01-13] MEDS: Losartan 25 MG TAB PO SCH (09:27)
[2020-01-13] MEDS: Zinc Sulfate 220 MG CAP PO SCH (09:27)
[2020-01-13] MEDS: Aspirin 81 mg Enteric Coated Tablet PO SCH (09:27)
[2020-01-13] MEDS: Dexamethasone 4 MG TAB PO SCH (09:27)
[2020-01-13] MEDS: Ascorbic Acid 500 mg Chewable Tablet PO SCH (09:27)
[2020-01-13] MEDS: Enoxaparin Sodium 40 MG/0.4 ML SYRINGE SC SCH (09:28)
[2020-01-13] MEDS: Fluticasone Propionate Nasal Spray 16 gm Bottle NASAL SCH (09:28)
[2020-01-13] MEDS: Nicotine 21 MG PATCH TD SCH (09:29)
[2020-01-13] MEDS: Acetaminophen 325 MG TAB PO PRN (13:35)
--- NOTE | 2020-01-13 14:54 | PDOC.HOSPP ---
- Subjective Encounter Date: 01/13/20 Encounter Time: 14:52 Subjective: Mr. Zarco was seen today in follow-up of COVID pneumonia. He says he feels fine. He says he can't stay in this room due to PTSD. He wants to go home. He has been breathing fine off oxygen, and is oxygen saturations have been in the mid 90's. - Objective Vital Signs & Weight: Vital Signs (12 hours) Temp Pulse Resp BP Pulse Ox 01/13/20 13:00 20 95 01/13/20 09:00 97.8 F 67 20 116/66 94 L 01/13/20 03:52 98 F 64 20 117/74 94 L Weight Admit Weight 305 lb 3.2 oz Weight 305 lb 3.2 oz I&O: 01/12/20 01/13/20 01/14/20 06:59 06:59 06:59 Intake Total 1210 Balance 1210 Result Diagrams: 01/10/20 06:23 01/12/20 07:21 Hospitalist ROS - Medication Medications: Active Medications Generic Name Dose Route Start Last Admin Trade Name Freq PRN Reason Stop Dose Admin Acetaminophen 650 mg 01/09/20 20:49 01/13/20 13:35 Acetaminophen 325 Mg Tab PO 650 mg Q4H PRN Administration Headache/Fever/Mild Pain (1-3) Acetaminophen 650 mg 01/09/20 20:49 01/13/20 03:52 Acetaminophen 650 Mg Suppository [place] 650 mg Q4H PRN Administration Headache/Fever/Mild Pain (1-3) Ascorbic Acid 1,000 mg 01/11/20 09:00 01/13/20 09:27 Ascorbic Acid 500 Mg Chewable Tablet PO 1,000 mg DAILY EVERT Administration Aspirin 81 mg 01/10/20 09:00 01/13/20 09:27 Aspirin 81 Mg Enteric Coated Tablet PO 81 mg DAILY EVERT Administration Dexamethasone 6 mg 01/10/20 08:00 01/13/20 09:27 Dexamethasone 4 Mg Tab PO 6 mg QAM-WM EVERT Administration Enoxaparin Sodium 40 mg 01/09/20 21:00 01/13/20 09:28 Enoxaparin Sodium 40 Mg/0.4 Ml Syringe SC 40 mg 0900,2100 EVERT Administration Famotidine 20 mg 01/09/20 21:00 01/13/20 09:27 Famotidine 20 Mg Tab PO 20 mg BID EVERT Administration Fluticasone Propionate 0 gm 01/10/20 09:00 01/13/20 09:28 Fluticasone Propionate Nasal [place] 16 Gm Bottle NASAL 2 spr DAILY EVERT Administration Remdesivir 100 mg/ Sodium 250 mls @ 250 mls/hr 01/10/20 22:00 01/12/20 21:32 Chloride IV 01/13/20 22:59 250 mls Q24HR EVERT Administration Azithromycin 500 mg/ Sodium 250 mls @ 250 mls/hr 01/10/20 18:00 01/12/20 17:53 Chloride IVPB 250 mls 1800 EVERT Administration Iron/Minerals/Multivitamins 1 tab 01/11/20 09:00 01/13/20 09:26 Multivitamin W/ Minerals 1 Tab PO 1 tab DAILY EVERT Administration Losartan Potassium 100 mg 01/10/20 09:00 01/13/20 09:27 Losartan 25 Mg Tab PO 100 mg QAM EVERT Administration Nicotine 21 mg 01/11/20 09:00 01/13/20 09:29 Nicotine 21 Mg Patch TD 21 mg DAILY EVERT Administration Potassium Chloride 40 meq 01/11/20 17:00 01/13/20 09:26 Potassium Chloride 20 Meq Tab PO 40 meq BID-WM EVERT Administration Sertraline HCl 100 mg 01/10/20 09:00 01/13/20 09:27 Sertraline Hcl 100 Mg Tab PO 100 mg DAILY EVERT Administration Sodium Chloride 10 ml 01/11/20 21:00 01/13/20 09:29 Flush - Normal Saline 10 Ml Syringe IVF 10 ml Q12HR EVERT Administration Tamsulosin HCl 0.4 mg 01/10/20 09:00 01/13/20 09:27 Tamsulosin Hcl 0.4 Mg Cap PO 0.4 mg QAM EVERT Administration Tramadol HCl 50 mg 01/11/20 09:56 01/13/20 03:52 Tramadol Hcl 50 Mg Tab PO 50 mg Q6H PRN Administration Moderate Pain (4-6) Venlafaxine HCl 75 mg 01/10/20 09:00 01/13/20 09:26 Venlafaxine Hcl Xr 75 Mg Cap PO 75 mg QAM EVERT Administration Zinc Sulfate 220 mg 01/11/20 09:00 01/13/20 09:27 Zinc Sulfate 220 Mg Cap PO 220 mg DAILY EVERT Administration - Exam Eye: PERRL, anicteric sclera Heart: RRR, no murmur, no gallops, no rubs, normal peripheral pulses Respiratory: CTAB (with occasional rale at the base.), no wheezes, no ronchi Gastrointestinal: soft, non-tender, non-distended, normal bowel sounds, no palpable masses, no hepatomegaly Extremities: no cyanosis, no edema Hosp A/P (1) Acute respiratory failure with hypoxia Code(s): J96.01 - ACUTE RESPIRATORY FAILURE WITH HYPOXIA Status: Acute (2) Morbid obesity Code(s): E66.01 - MORBID (SEVERE) OBESITY DUE TO EXCESS CALORIES Status: Acute (3) Pneumonia due to COVID-19 virus Code(s): U07.1 - COVID-19; J12.89 - OTHER VIRAL PNEUMONIA Status: Acute (4) Heel ulcer due to DM Code(s): E11.621 - TYPE 2 DIABETES MELLITUS WITH FOOT ULCER; L97.409 - NON-PRS CHRONIC ULCER OF UNSP HEEL AND MIDFOOT W UNSP SEVERT Status: Chronic Qualifiers: Diabetes mellitus type: type 2 (5) Diabetes mellitus type 2 in obese Code(s): E11.69 - TYPE 2 DIABETES MELLITUS WITH OTHER SPECIFIED COMPLICATION; E66.9 - OBESITY, UNSPECIFIED Status: Chronic (6) PTSD (post-traumatic stress disorder) Code(s): F43.10 - POST-TRAUMATIC STRESS DISORDER, UNSPECIFIED Status: Acute (7) HTN (hypertension) Code(s): I10 - ESSENTIAL (PRIMARY) HYPERTENSION Status: Chronic Qualifiers: Hypertension type: essential hypertension Qualified Code(s): I10 - Essential (primary) hypertension - Plan * Acute respiratory failure due to COVID pneumonia- much improved * He has one more dose of Remdesivir. Hopefully we can give this a few hours early, and he can be discharged home this afternoon * He says he is not suicidal. He has no plan, and does not feel like haring himself. He says it is just frustration about being locked up in the room- will discontinue suicide precautions, and will relieve the sitter. * Stable for discharge
[2020-01-13] MEDS: REMDESIVIR (EUA) 100 MG in Sodium Chloride 0.9% 250 ML 230 ML IV SCH (15:32)
[2020-01-13 17:53] VITALS: BP 128/74; TEMP 97.9
--- NOTE | 2020-01-13 17:53 | PDOC.DS.DS ---
Provider - Provider Date of Admission: 01/09/20 16:11 Date of Discharge: 01/13/20 Admitting Provider: Malick Castano MD Primary Care Physician: MALICK CRANE JR, MD Course - Hospital Course Hospital Course: Mr. Zarco is a 64-year-old gentleman with a history of hypertension and obesity. He recently tested positive for Covid. This was about a week and 1/2 to 2 weeks ago. He became more short of breath and hypoxic and for this reason he was admitted to the hospital. A CT angiogram of the chest was done and was negative for pulmonary embolism. However it did show findings consistent with COVID-19 pneumonia with bilateral ground glass opacities. He was started on remdesivir and completed a 4-day course of the treatment. He was also treated with IV Decadron. At the time of discharge the patient was completely weaned off of oxygen and was having oxygen saturations in the mid 90s more specifically around 96%. The patient said he needed to go home as he was getting extremely agitated being cooped up in a small room. He says he has PTSD and this was causing him anxiety. He initially said that he would kill himself if he did not get discharged. I came and spoke with the patient and he denied having any suicidal ideation. He says that he was just agitated. Therefore after his final dose of remdesivir and the fact that his O2 saturations were in the 90s without supplemental oxygen he was subsequently discharged home. I spoke with his over the phone with regards to self-isolation and quarantine policy Pertinent Studies: CTA of the chest Resuscitation Status: 01/09/20 16:53 Resuscitation Status Routine Resuscitation Status: FULL: Full Resuscitation Discussed with: Patient - Labs Lab Results: 01/10/20 06:23 01/12/20 07:21 Abnormal Lab Results - Last 48 hrs 01/12/20 07:21: Carbon Dioxide 22 L, BUN 29 H, C-Reactive Protein 5.05 H 01/12/20 07:21: Ferritin 1098.56 H 01/12/20 07:21: D-Dimer Greater than 20.00 H 01/13/20 07:31: C-Reactive Protein 8.40 H 01/13/20 07:31: Ferritin 1109.99 H 01/13/20 07:31: D-Dimer Greater than 20.00 H Microbiology - Entire Visit 01/09/20 12:51 Venous blood - Right Arm Blood Culture - Preliminary NO GROWTH AT 48 HOURS - Physical Exam Vitals: Vital Signs (12 hours) Temp Pulse Resp BP Pulse Ox 01/13/20 13:00 20 95 01/13/20 09:00 97.8 F 67 20 116/66 94 L Weight Admit Weight 305 lb 3.2 oz Weight 305 lb 3.2 oz Physical Exam: The patient was seen and examined on the day of discharge. Problem - Problem (1) Acute respiratory failure with hypoxia Code(s): J96.01 - ACUTE RESPIRATORY FAILURE WITH HYPOXIA Status: Acute (2) Morbid obesity Code(s): E66.01 - MORBID (SEVERE) OBESITY DUE TO EXCESS CALORIES Status: Acute (3) Pneumonia due to COVID-19 virus Code(s): U07.1 - COVID-19; J12.89 - OTHER VIRAL PNEUMONIA Status: Acute (4) Heel ulcer due to DM Code(s): E11.621 - TYPE 2 DIABETES MELLITUS WITH FOOT ULCER; L97.409 - NON-PRS C HRONIC ULCER OF UNSP HEEL AND MIDFOOT W UNSP SEVERT Status: Chronic Qualifiers: Diabetes mellitus type: type 2 (5) Diabetes mellitus type 2 in obese Code(s): E11.69 - TYPE 2 DIABETES MELLITUS WITH OTHER SPECIFIED COMPLICATION; E66.9 - OBESITY, UNSPECIFIED Status: Chronic (6) PTSD (post-traumatic stress disorder) Code(s): F43.10 - POST-TRAUMATIC STRESS DISORDER, UNSPECIFIED Status: Acute (7) HTN (hypertension) Code(s): I10 - ESSENTIAL (PRIMARY) HYPERTENSION Status: Chronic Qualifiers: Hypertension type: essential hypertension Qualified Code(s): I10 - Essential (primary) hypertension Plan - Discharge Medications Prescriptions: Dexamethasone [Decadron] 6 mg PO QA- #3 tab Ascorbic Acid [Vitamin C] 1,000 mg PO DAILY #30 tablet.er Zinc Sulfate 220 mg PO DAILY #30 cap Home Medications: Medication Instructions Recorded Confirmed Type Fluticasone Propionate [Flonase 2 spray EA NARE DAILY 07/04/18 01/09/20 History Nasal [place]] Losartan Potassium 100 mg PO QAM 07/04/18 01/09/20 History Tamsulosin HCl [Flomax] 0.4 mg PO QAM 07/04/18 01/09/20 History Venlafaxine HCl [Venlafaxine HCl 75 mg PO QAM 07/04/18 01/09/20 History ER] Dextroamphetamine/Amphetamine 1 tab PO BID 07/04/19 01/09/20 History [Adderall Xr 20 mg Capsule] Acetaminophen [Tylenol Extra 1,000 mg PO Q6H tab 12/02/19 01/09/20 Rx Strength] Multivitamin W/ Minerals 1 tab PO DAILY tab 12/02/19 01/09/20 Rx [Theragran M] Aspirin [Aspirin EC] 81 mg PO DAILY 12/21/19 01/09/20 History Sertraline HCl [Zoloft] 100 mg PO DAILY 12/24/19 01/09/20 History Ascorbic Acid [Vitamin C] 1,000 mg PO DAILY #30 tablet.er 01/13/20 Rx Dexamethasone [Decadron] 6 mg PO QAM-WM #3 tab 01/13/20 Rx Zinc Sulfate 220 mg PO DAILY #30 cap 01/13/20 Rx Allergies: No Known Allergies Allergy (Verified 12/21/19 10:32) - Discharge Instructions Discharge Instructions:: Follow-up with your Primary Care Physician in 2 weeks Activity:: Activity as Tolerated, Activity Restrictions - Follow up Plan Referrals: Malick Crane Jr, MD [Primary Care Provider] - Disposition: HOME Quality - Care Measures CORE MEASURES:: N/A
== END 2020-01-13 17:17 | disposition home or self-care (01) | DRG 177 ==
LOC: ERS 09:58 → T4-B 16:11
PROVIDERS: ADMIT Internal Medicine; ATTEND Family Medicine
PROC: 8E0ZXY6 Isolation (ICD-10-PCS; principal; 2020-01-09)
PROC: XW033E5 Introduction of Remdesivir Anti-infective into Peripheral Vein, Percutaneous Approach, New Technology Group 5 (ICD-10-PCS; 2020-01-09)
DX: U07.1 COVID-19 (principal); J12.89 Other viral pneumonia; J96.01 Acute respiratory failure with hypoxia; E87.1 Hypo-osmolality and hyponatremia; L97.429 Non-pressure chronic ulcer of left heel and midfoot with unspecified severity; Z68.41 Body mass index [BMI] 40.0-44.9, adult; E11.622 Type 2 diabetes mellitus with other skin ulcer; E66.01 Morbid (severe) obesity due to excess calories; E11.621 Type 2 diabetes mellitus with foot ulcer; E11.69 Type 2 diabetes mellitus with other specified complication; F43.10 Post-traumatic stress disorder, unspecified; I10 Essential (primary) hypertension; N40.0 Benign prostatic hyperplasia without lower urinary tract symptoms; M19.90 Unspecified osteoarthritis, unspecified site; H54.40 Blindness, one eye, unspecified eye; I87.2 Venous insufficiency (chronic) (peripheral); F17.210 Nicotine dependence, cigarettes, uncomplicated; E87.6 Hypokalemia; Z79.899 Other long term (current) drug therapy; Z98.84 Bariatric surgery status; Z90.49 Acquired absence of other specified parts of digestive tract; Z79.82 Long term (current) use of aspirin
CPT/HCPCS: 36415; 36600; 71275; 80048; 80053; 80076; 82728; 82805; 83605; 84484; 85025; 85379; 86140; 87040; 96374; J0456; J1100; J1650; J7050; J8540; Q9967

== ENCOUNTER 2020-01-14 03:01 | Inpatient (IN) | payer MEDICARE, OTHER ==
[2020-01-14] MEDS ORDERED: Fentanyl 100 MCG/2 ML VIAL ONE ×2 (03:50→05:57)
[2020-01-14] MEDS ORDERED: Phenylephrine 10 MG/ML VIAL ONE (03:50)
[2020-01-14] MEDS ORDERED: Midazolam HCl 2 mg/2 ml Vial ONE (04:29)
[2020-01-14] MEDS ORDERED: Heparin 5,000 UNITS/ML VIAL ONE (04:38)
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
[2020-01-14] MEDS ORDERED: Ondansetron HCl/PF 4 MG/2 ML Vial IVP PRN (06:16)
[2020-01-14 06:47] LABS: INR-International Normal Ratio 1.4; Prothrombin Time 17.1 sec (12.0-14.7)
[2020-01-14 06:49] LABS: PTT 113.7 sec (22.9-36.1)
[2020-01-14 07:55] VITALS: BMI 35.8
[2020-01-14] MEDS ORDERED: Lorazepam 0.5 MG TAB PO PRN (08:09)
[2020-01-14] MEDS ORDERED: Heparin 25,000 units/D5W 500 ML IVPB SCH (08:09)
[2020-01-14] MEDS ORDERED: Ondansetron ODT 4 MG TAB SL PRN (08:09)
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
[2020-01-14] MEDS ORDERED: Aspirin 81 mg Enteric Coated Tablet PO SCH (09:00)
[2020-01-14] MEDS: HYDROcodone/Acetaminophen 5/325 mg Tablet PO PRN (10:08)
[2020-01-14] MEDS: Famotidine 20 MG TAB PO SCH ×2 (10:09→21:01)
[2020-01-14] MEDS ORDERED: Albuterol 200 PUFF (6.7GM INHALER) INH SCH (10:30)
[2020-01-14] MEDS ORDERED: Albuterol 200 PUFF (6.7GM INHALER) INH PRN (10:30)
[2020-01-14] MEDS ORDERED: Lidocaine 1% PF 5 ML VIAL ONE (11:44)
[2020-01-14] MEDS ORDERED: Rocuronium Bromide 10 MG/ML (10ML VIAL) ONE (11:44)
[2020-01-14] MEDS ORDERED: Ondansetron PF 4 MG/2 ML Vial ONE (11:44)
[2020-01-14] MEDS ORDERED: PROPOFOL 200 MG/20 ML VIAL ONE (11:44)
[2020-01-14] MEDS: Albuterol 200 PUFF (6.7GM INHALER) INH SCH ×2 (13:10→18:48)
[2020-01-14] MEDS ORDERED: Heparin 1,000 UNITS/ML VIAL SLOW IVP SCH (13:15)
--- NOTE | 2020-01-14 13:39 | PRG ---
DATE OF SERVICE: 01/14/2020 The patient is now about 6 hours status post surgical intervention. His PTT came back to 43 seconds. Unfortunately, I had asked for the PTT to be done about 4 hours ago and it was just now done. The nurse reports a palpable posterior tibial pulse, and when I informed her that she needed to Doppler, she states she could not find a Doppler signal in the posterior tibial, only in the dorsalis pedis, and when I examined the patient, he has a good posterior tibial Doppler signal and no palpable pulses in his feet. He is resting quietly. He has good cap fill in his foot and a palpable popliteal pulse. We will increase his heparin again back to about 2000 units an hour. Job ID: [id number] [facility]TDD
[2020-01-14] MEDS ORDERED: Heparin 5,000 UNITS/ML VIAL SLOW IVP SCH (13:45)
[2020-01-14] MEDS: Heparin 10,000 UNITS/ 10 ML VIAL SLOW IVP SCH ×2 (14:02→22:34)
--- NOTE | 2020-01-14 14:41 | OP ---
DATE OF PROCEDURE: 01/14/2020 PREOPERATIVE DIAGNOSIS: Ischemic right lower extremity following thrombosis of his bilateral superficial femoral arteries and internal iliac arteries related to COVID hypercoagulability. POSTOPERATIVE DIAGNOSIS: Ischemic right lower extremity following thrombosis of his bilateral superficial femoral arteries and internal iliac arteries related to COVID hypercoagulability with aneurysmal popliteal arteries. PROCEDURE PERFORMED: Right popliteal artery exploration and thrombectomy. DESCRIPTION OF PROCEDURE: After adequate anesthesia had been obtained, the patient was prepped and draped. An incision was made over the medial leg, caudal to the knee joint. Fascia was incised and the popliteal artery was encountered and was rather large. After encircling it proximally and at the level of the anterior tibial takeoff, a longitudinal incision was made and there was a large amount of fresh thrombus. This was removed with instrumentation, and distally, a long segment of thrombus came out in a cast of one of the tibial arteries. There was also a short cast of the anterior tibial artery. Following this, there was brisk back bleeding and a Mamie catheter could not be passed in this direction. Following this, proximally a #4 Mamie was passed and fresh thrombus as well as perhaps some atherosclerotic debris was removed with good forward flow. Heparin saline was flushed proximally. Following which, the arteriotomy was closed with a running Prolene suture. After this, there was good pulse in the graft. Hemostasis was obtained and a Yang drain #19 was placed through a separate stab incision and the wound was then closed with 0 Vicryl running suture. The patient had a posterior tibial signal at the conclusion of the procedure, although his foot was rather pale. ESTIMATED BLOOD LOSS: Minimal. Job ID: [id number]
[2020-01-14] MEDS: Gabapentin 100 MG CAP PO SCH (21:01)
[2020-01-14] MEDS: Acetaminophen 325 MG TAB PO PRN (21:02)
[2020-01-14] MEDS: Morphine 2 MG/ML VIAL SLOW IVP PRN (23:54)
[2020-01-15] MEDS: Albuterol 200 PUFF (6.7GM INHALER) INH SCH ×5 (00:15→23:39)
[2020-01-15] MEDS: HYDROcodone/Acetaminophen 5/325 mg Tablet PO PRN ×3 (00:20→20:28)
[2020-01-15 05:04] LABS: #Eosinphils 0.3 thou/uL (0.0-0.7); #Monocytes 0.8 thou/uL (0.11-0.59); #Neutrophils 9.6 thou/uL (1.40-6.50); %Basophils 0.4 % (0.0-1.0); %Eosinophils 2.5 % (0.0-10.0); %Lymphocytes 15.7 % (21.0-51.0); %Neutrophils 75.6 % (42.0-75.0); Hemoglobin 10.5 g/dL (14.0-18.0); Mean Corpuscular HGB CONC 32.1 g/dL (32.0-36.0); Mean Corpuscular Hemoglobin 27.6 pg (27.0-31.0); Mean Corpuscular Volume 85.8 fL (78.0-98.0); Platelet Count 161 thou/uL (130-400); RBC Distribution Width 15.1 % (11.5-14.5); Red Blood Cell (RBC) Count 3.82 mill/uL (4.70-6.10); White Blood Cell (WBC) Count 12.7 thou/uL (4.8-10.8)
[2020-01-15 05:26] LABS: Anion Gap 13 mmol/L (10-20); BUN (Urea Nitrogen) 17 mg/dL (8.4-25.7); Calc. Creatinine Clearance 150 mL/min (70-130); Calcium 7.7 mg/dL (7.8-10.44); Carbon Dioxide 22 mmol/L (23-31); Chloride 104 mmol/L (98-107); Estimated GFR-MDRD 80; Glucose 86 mg/dL (80-115); Potassium 4.3 mmol/L (3.5-5.1); Sodium 135 mmol/L (136-145)
[2020-01-15] MEDS: Morphine 2 MG/ML VIAL SLOW IVP PRN (05:37)
[2020-01-15] MEDS ORDERED: Midazolam HCl 2 mg/2 ml Vial ONE (07:18)
[2020-01-15] MEDS ORDERED: HYDROmorphone 2 MG/ML VIAL ONE (07:18)
[2020-01-15] MEDS ORDERED: Heparin 5,000 UNITS/ML VIAL ONE (07:22)
--- NOTE | 2020-01-15 07:29 | PRG ---
DATE OF SERVICE: 01/15/2020 The patient developed significant pain in his left lower extremity about an hour ago and has probably progressed with his known thrombosis on that leg. He continues to have a good Doppler signal in his right foot and this is not bothering him. We will need to proceed back down to the operating room to deal with his popliteal tibial thrombosis. I have discussed with the patient as well as his , the risks involved, including the possible ultimate need for amputation of the surgery is unsuccessful and they have given consent. Job ID: [id number]
[2020-01-15] MEDS ORDERED: Ketamine 50 MG/ML (10ML VIAL) ONE (07:43)
[2020-01-15] MEDS ORDERED: Phenylephrine 10 MG/ML VIAL ONE ×2 (09:08→09:12)
[2020-01-15] MEDS ORDERED: Ondansetron PF 4 MG/2 ML Vial ONE (11:09)
[2020-01-15] MEDS ORDERED: Lidocaine 1% PF 5 ML VIAL ONE (11:09)
[2020-01-15] MEDS ORDERED: PHENYLEPHRINE-NS 100 MCG/ML 10 ML SYRINGE ONE (11:09)
[2020-01-15] MEDS ORDERED: Succinylcholine 200 MG/10 ml SYRINGE FS ONE (11:09)
[2020-01-15] MEDS ORDERED: PROPOFOL 200 MG/20 ML VIAL ONE (11:09)
[2020-01-15 12:17] LABS: PTT 163.9 sec (22.9-36.1)
--- NOTE | 2020-01-15 12:47 | OP ---
DATE OF PROCEDURE: 01/15/2020 PREOPERATIVE DIAGNOSIS: Ischemic left lower extremity. PROCEDURE PERFORMED: Left femoral artery exploration with exploration of the popliteal artery and tibial vessels with Mamie embolectomy catheter. ANESTHESIA: General. ESTIMATED BLOOD LOSS: 300. DESCRIPTION OF PROCEDURE: After adequate anesthesia had been obtained, the patient was prepped and draped. An incision made over the medial aspect of the leg, just below the knee. It was carried through the fascia, exposing the popliteal artery. Attempts to mobilize the artery slightly distal to see the takeoff of the anterior tibial were thwarted due to very large venous system. After a longitudinal arteriotomy was performed in the popliteal artery, fresh thrombus was expelled. A 3 Mamie was passed multiple times distally, obtaining a good bit of thrombus both new and slightly older, with some backbleeding obtained. The area was flushed with heparin saline after several passes revealed no further thrombus. The 3 Mamie would not pass more than about 15 cm in the proximal direction on the popliteal artery, and a 4 Mamie was then passed and thrombus removed with pulsatile flow. The arteriotomy was closed. However, there was no good pulsation in the vessel and the sutures were removed and additional 5000 units of heparin were given besides the drip. Several passes with the 4.0 did not yield any further debris, but pulsatile flow was still poor. Finally, a pass was obtained and a large amount of organized thrombus was removed with excellent forward flow. The area was flushed with heparin saline. Distal pass carried out once more and then the arteriotomy closed with a good pulse. The wound was then closed over a 19 Yang drain through a separate stab incision and the patient is to be taken to the recovery room. Job ID: [id number]
--- NOTE | 2020-01-15 14:41 | PDOC.HOSPP ---
- Subjective Encounter Date: 01/15/20 Encounter Time: 14:40 Subjective: Mr. Zarco was seen today in follow-up of peripheral vascular occlusive disease due to COVID infection. He has just returned from a second thrombectomy, this time of the left lower extremity. He is still a bit groggy from surgery. - Objective Vital Signs & Weight: Vital Signs (12 hours) Temp Pulse Ox 01/15/20 11:59 97.5 F L 01/15/20 07:00 98 01/15/20 03:59 98.2 F Weight Admit Weight 294 lb Weight 294 lb Most Recent Monitor Data Heart Rate from ECG 81 NIBP 96/56 NIBP BP-Mean 69 Respiration from ECG 24 SpO2 93 I&O: 01/14/20 01/15/20 01/16/20 06:59 06:59 06:59 Intake Total 2169 Output Total 1718 Balance 451 Result Diagrams: 01/15/20 04:55 01/15/20 04:55 Hospitalist ROS - Medication Medications: Active Medications Generic Name Dose Route Start Last Admin Trade Name Freq PRN Reason Stop Dose Admin Acetaminophen 650 mg 01/14/20 08:09 01/14/20 21:02 Acetaminophen 325 Mg Tab PO 650 mg Q4H PRN Administration Headache/Fever/Mild Pain (1-3) Hydrocodone Bitart/Acetaminophen 1 tab 01/14/20 08:09 01/15/20 04:42 Hydrocodone/Acetaminophen 5/325 Mg Tablet PO 1 tab Q4H PRN Administration Moderate Pain (4-6) Albuterol Sulfate 2 puff 01/14/20 13:00 01/15/20 14:23 Albuterol 200 Puff (6.7gm Inhaler) INH 2 puff [id number] EVERT Administration Famotidine 20 mg 01/14/20 09:00 01/14/20 21:01 Famotidine 20 Mg Tab PO 20 mg BID EVERT Administration Gabapentin 100 mg 01/14/20 21:00 01/14/20 21:01 Gabapentin 100 Mg Cap PO 100 mg QPM EVERT Administration Lorazepam 0.5 mg 01/14/20 08:09 01/15/20 05:42 Lorazepam 0.5 Mg Tab PO 0.5 mg Q4H PRN Administration Anxiety Morphine Sulfate 2 mg 01/14/20 10:25 01/15/20 05:37 Morphine 2 Mg/Ml Vial SLOW IVP 2 mg Q4H PRN Administration Moderate to Severe Pain (6-10) - Exam Eye: PERRL Heart: RRR, no murmur, no gallops, no rubs, normal peripheral pulses Respiratory: CTAB (+ with occasional rales) Gastrointestinal: soft, non-tender, non-distended, normal bowel sounds, no palpable masses, no hepatomegaly Extremities: no edema (+ palpable p.t. pulse on the right, distal pulses palpable on the left. There is purplish discoloration on the left toes) Hosp A/P (1) Peripheral vascular occlusive disease Code(s): I73.9 - PERIPHERAL VASCULAR DISEASE, UNSPECIFIED Status: Acute (2) PTSD (post-traumatic stress disorder) Code(s): F43.10 - POST-TRAUMATIC STRESS DISORDER, UNSPECIFIED Status: Acute (3) BPH (benign prostatic hyperplasia) Code(s): N40.0 - BENIGN PROSTATIC HYPERPLASIA WITHOUT LOWER URINRY TRACT SYMP Status: Chronic (4) Diabetes mellitus type 2 in obese Code(s): E11.69 - TYPE 2 DIABETES MELLITUS WITH OTHER SPECIFIED COMPLICATION; E66.9 - OBESITY, UNSPECIFIED Status: Chronic (5) HTN (hypertension) Code(s): I10 - ESSENTIAL (PRIMARY) HYPERTENSION Status: Chronic Qualifiers: Hypertension type: essential hypertension Qualified Code(s): I10 - Essential (primary) hypertension - Plan * Perpheral Vascular occlusive disease- patient is s/p second thrombectomy. * Continue Heparin drip * HTN- blood pressure is stable * DM- will add a SSI * PTSD- continue his home medications * Symptom control- Gabapentin has been added at bedtime, and will continue as needed medications for pain.
[2020-01-15] MEDS ORDERED: Dextrose 50% Abboject 50 ML SYRINGE SLOW IVP PRN (14:45)
[2020-01-15] MEDS ORDERED: HumaLOG 300 UNITS/3 ML VIAL SC PRN (14:45)
[2020-01-15] MEDS ORDERED: Dextrose 5% in Water 1,000 ML IV PRN (14:45)
[2020-01-15] MEDS: Aspirin 81 mg Enteric Coated Tablet PO SCH (16:30)
[2020-01-15] MEDS: Dexamethasone 4 MG TAB PO SCH (16:30)
[2020-01-15] MEDS: Ascorbic Acid 500 mg Chewable Tablet PO SCH (16:30)
[2020-01-15] MEDS: Zinc Sulfate 220 MG CAP PO SCH (16:31)
[2020-01-15] MEDS: Venlafaxine HCl XR 75 MG CAP PO SCH (16:31)
[2020-01-15] MEDS: Famotidine 20 MG TAB PO SCH ×2 (16:31→20:31)
[2020-01-15] MEDS: Tamsulosin HCl 0.4 MG CAP PO SCH (16:31)
[2020-01-15] MEDS: Gabapentin 100 MG CAP PO SCH (20:30)
[2020-01-15] MEDS: Heparin 10,000 UNITS/ 10 ML VIAL SLOW IVP SCH (23:46)
[2020-01-16] MEDS: Heparin 25,000 units/D5W 500 ML IV SCH ×3 (01:31→22:35)
[2020-01-16 04:36] LABS: Anion Gap 13 mmol/L (10-20); BUN (Urea Nitrogen) 16 mg/dL (8.4-25.7); Calc. Creatinine Clearance 152 mL/min (70-130); Calcium 7.4 mg/dL (7.8-10.44); Carbon Dioxide 21 mmol/L (23-31); Chloride 104 mmol/L (98-107); Estimated GFR-MDRD 81; Glucose 121 mg/dL (80-115); Potassium 4.3 mmol/L (3.5-5.1); Sodium 134 mmol/L (136-145)
[2020-01-16 05:32] LABS: Band 8 % (5-11); Eosinophils 2 % (0-10); Hemoglobin 9.6 g/dL (14.0-18.0); Lymphocytes 11 % (21-51); MDiff Complete? YES; Mean Corpuscular HGB CONC 31.9 g/dL (32.0-36.0); Mean Corpuscular Volume 84.6 fL (78.0-98.0); Mean Platelet Volume 10.6 fL (7.4-10.4); Monocytes 8 % (0-10); Neutrophil 71 % (42-75); Platelet Count 171 thou/uL (130-400); RBC Distribution Width 15.2 % (11.5-14.5); Red Blood Cell (RBC) Count 3.56 mill/uL (4.70-6.10); White Blood Cell (WBC) Count 14.8 thou/uL (4.8-10.8)
[2020-01-16 08:40] LABS: Hemoglobin 9.6 g/dL (14.0-18.0); Platelet Count 194 thou/uL (130-400)
[2020-01-16] MEDS ORDERED: Polyethylene Glycol 3350 17 GM Packet PO PRN (09:19)
--- NOTE | 2020-01-16 09:21 | PDOC.HOSPP ---
- Subjective Encounter Date: 01/16/20 Encounter Time: 09:19 Subjective: Mr. Zarco was seen today in follow-up of Thrombotic event due to COVID infection. He notes some soreness in her feet and legs. He denies having any respiratory symptoms. - Objective Vital Signs & Weight: Vital Signs (12 hours) Temp Pulse Ox 01/16/20 08:00 98 01/16/20 07:22 99.0 F 01/16/20 04:00 98.9 F 01/16/20 00:00 99.5 F Weight Admit Weight 294 lb Weight 294 lb Most Recent Monitor Data Heart Rate from ECG 82 NIBP 121/77 NIBP BP-Mean 91 Respiration from ECG 20 SpO2 96 I&O: 01/15/20 01/16/20 01/17/20 06:59 06:59 06:59 Intake Total 2169 720 Output Total 1718 1690 Balance 451 -970 Result Diagrams: 01/16/20 08:28 01/16/20 03:58 Additional Labs: Accuchecks 01/16/20 01/15/20 01/15/20 05:51 19:49 16:51 POC Glucose 120 H 132 H 117 H Hospitalist ROS - Medication Medications: Active Medications Generic Name Dose Route Start Last Admin Trade Name Freq PRN Reason Stop Dose Admin Acetaminophen 650 mg 01/14/20 08:09 01/14/20 21:02 Acetaminophen 325 Mg Tab PO 650 mg Q4H PRN Administration Headache/Fever/Mild Pain (1-3) Hydrocodone Bitart/Acetaminophen 1 tab 01/14/20 08:09 01/15/20 20:28 Hydrocodone/Acetaminophen 5/325 Mg Tablet PO 1 tab Q4H PRN Administration Moderate Pain (4-6) Albuterol Sulfate 2 puff 01/14/20 13:00 01/15/20 23:39 Albuterol 200 Puff (6.7gm Inhaler) INH 2 puff [id number] EVERT Administration Ascorbic Acid 1,000 mg 01/15/20 09:00 01/15/20 16:30 Ascorbic Acid 500 Mg Chewable Tablet PO Not Given DAILY EVERT Aspirin 81 mg 01/15/20 09:00 01/15/20 16:30 Aspirin 81 Mg Enteric Coated Tablet PO Not Given DAILY EVERT Dexamethasone 6 mg 01/15/20 08:00 11/23/20 16:30 Dexamethasone 4 Mg Tab PO Not Given QAM-WM EVERT Famotidine 20 mg 01/14/20 09:00 01/15/20 20:31 Famotidine 20 Mg Tab PO 20 mg BID EVERT Administration Gabapentin 100 mg 01/14/20 21:00 01/15/20 20:30 Gabapentin 100 Mg Cap PO 100 mg QPM EVERT Administration Heparin Sodium (Porcine) 0 units 01/15/20 13:15 01/15/20 23:46 Heparin 10,000 Units/ 10 Ml Vial SLOW IVP 5,320 unit WILLCALL EVERT Administration Heparin Sodium/Dextrose 500 mls @ 0 mls/hr 01/15/20 13:15 01/16/20 01:31 Heparin 25,000 Units/D5w IV 500 mls INF EVERT Administration Protocol As Directed Lorazepam 0.5 mg 01/14/20 08:09 01/15/20 05:42 Lorazepam 0.5 Mg Tab PO 0.5 mg Q4H PRN Administration Anxiety Morphine Sulfate 2 mg 01/14/20 10:25 01/15/20 05:37 Morphine 2 Mg/Ml Vial SLOW IVP 2 mg Q4H PRN Administration Moderate to Severe Pain (6-10) Sertraline HCl 100 mg 01/15/20 09:00 01/15/20 16:31 Sertraline Hcl 100 Mg Tab PO Not Given DAILY [facility] Tamsulosin HCl 0.4 mg 01/15/20 09:00 01/15/20 16:31 Tamsulosin Hcl 0.4 Mg Cap PO Not Given [facility] Venlafaxine HCl 75 mg 01/15/20 09:00 01/15/20 16:31 Venlafaxine Hcl Xr 75 Mg Cap PO Not Given [facility] Zinc Sulfate 220 mg 01/15/20 09:00 01/15/20 16:31 Zinc Sulfate 220 Mg Cap PO Not Given DAILY EVERT - Exam Eye: PERRL, anicteric sclera Heart: RRR, no murmur, no gallops, no rubs, normal peripheral pulses Respiratory: CTAB, no wheezes, no rales, no ronchi Gastrointestinal: soft, non-tender, non-distended, normal bowel sounds, no palpable masses Extremities: no clubbing (+ purplish disoloration of the toes on the left foot, distal pulses are not palpable Left foot is pale, but able to palpate a posterior tibial pulse) Hosp A/P (1) Peripheral vascular occlusive disease Code(s): I73.9 - PERIPHERAL VASCULAR DISEASE, UNSPECIFIED Status: Acute (2) PTSD (post-traumatic stress disorder) Code(s): F43.10 - POST-TRAUMATIC STRESS DISORDER, UNSPECIFIED Status: Acute (3) BPH (benign prostatic hyperplasia) Code(s): N40.0 - BENIGN PROSTATIC HYPERPLASIA WITHOUT LOWER URINRY TRACT SYMP Status: Chronic (4) Diabetes mellitus type 2 in obese Code(s): E11.69 - TYPE 2 DIABETES MELLITUS WITH OTHER SPECIFIED COMPLICATION; E66.9 - OBESITY, UNSPECIFIED Status: Chronic (5) HTN (hypertension) Code(s): I10 - ESSENTIAL (PRIMARY) HYPERTENSION Status: Chronic Qualifiers: Hypertension type: essential hypertension Qualified Code(s): I10 - Essential (primary) hypertension - Plan * Perpheral Vascular occlusive disease-- with Thrombotic event due to COVID infection - he is s/p thrombectomy. * Continue Heparin drip * Continue to monitor his progress clinically * HTN- blood pressure is stable * DM- will add a SSI * PTSD- continue his home medications * Symptom control- continue Gabapentin and [place] * Will add medication for constipation
[2020-01-16] MEDS: Aspirin 81 mg Enteric Coated Tablet PO SCH (09:59)
[2020-01-16] MEDS: Multivitamin W/ Minerals 1 TAB PO SCH (09:59)
[2020-01-16] MEDS: Famotidine 20 MG TAB PO SCH ×2 (10:01→20:40)
[2020-01-16] MEDS: Ascorbic Acid 500 mg Chewable Tablet PO SCH (10:05)
[2020-01-16] MEDS: Venlafaxine HCl XR 75 MG CAP PO SCH (10:05)
[2020-01-16] MEDS: Tamsulosin HCl 0.4 MG CAP PO SCH (10:05)
[2020-01-16] MEDS: Dexamethasone 4 MG TAB PO SCH (10:06)
[2020-01-16] MEDS: Zinc Sulfate 220 MG CAP PO SCH (10:07)
[2020-01-16] MEDS: Acetaminophen 325 MG TAB PO PRN (10:11)
[2020-01-16] MEDS: Fluticasone Propionate Nasal Spray 16 gm Bottle NASAL SCH (10:12)
[2020-01-16] MEDS: Albuterol 200 PUFF (6.7GM INHALER) INH SCH ×4 (10:38→23:07)
[2020-01-16] MEDS: Heparin 10,000 UNITS/ 10 ML VIAL SLOW IVP SCH (13:57)
[2020-01-16] MEDS: HumaLOG 300 UNITS/3 ML VIAL SC PRN (17:47)
[2020-01-16] MEDS: Docusate 100 MG CAP PO SCH (20:39)
[2020-01-16] MEDS: Gabapentin 100 MG CAP PO SCH (20:39)
[2020-01-16] MEDS: Nicotine 14 MG PATCH TD SCH (20:43)
[2020-01-17] MEDS: HumaLOG 300 UNITS/3 ML VIAL SC PRN ×3 (06:44→17:27)
[2020-01-17] MEDS: Albuterol 200 PUFF (6.7GM INHALER) INH SCH ×3 (07:37→18:30)
--- NOTE | 2020-01-17 08:10 | PRG ---
DATE OF SERVICE: The patient is afebrile with stable vital signs. His sugars are still elevated, but he is on Decadron in regard to his COVID pneumonitis from last week. He slept well for another night and has not had any complaints with his lower extremities. Hemoglobin is stable. Urine is slightly pink-tinged this morning with a report of some clots being passed during the night. His lower extremity drains were both removed and he has good sensation in his feet. The left-sided toes are still discolored and this has been the case since I first saw him this past Wednesday night. He has no complaints of pain now. He has strong popliteal pulses on examination and his skin incisions on his medial upper portion of the lower legs are fine. PLAN: Stop his IV heparin today and switch him to b.i.d. Lovenox full dose. At some point, this can be transitioned to Eliquis 5 b.i.d., but for the time being, we will go with Lovenox. He is ready for discharge to rehab if that can be arranged. I do not think he is a candidate to go home at this time. Job ID: [id number]
--- NOTE | 2020-01-17 08:43 | PDOC.HOSPP ---
- Subjective Encounter Date: 01/17/20 Encounter Time: 08:42 Subjective: Mr. Zarco was seen today in follow-up of Thrombosis due to COVID infection. He says the pain in his foot has improved. - Objective Vital Signs & Weight: Vital Signs (12 hours) Temp 01/17/20 07:39 98.0 F 01/17/20 03:54 99.5 F 01/17/20 00:00 98.4 F Weight Admit Weight 294 lb Weight 294 lb Most Recent Monitor Data Heart Rate from ECG 85 NIBP 132/65 NIBP BP-Mean 87 Respiration from ECG 21 SpO2 96 I&O: 01/16/20 01/17/20 01/18/20 06:59 06:59 06:59 Intake Total 720 2672 Output Total 1690 810 Balance -970 1862 Result Diagrams: 01/16/20 08:28 01/16/20 03:58 Additional Labs: Accuchecks 01/17/20 01/16/20 01/16/20 06:02 20:05 16:58 POC Glucose 282 H 194 H 258 H 01/16/20 12:48 POC Glucose 197 H Hospitalist ROS - Medication Medications: Active Medications Generic Name Dose Route Start Last Admin Trade Name Freq PRN Reason Stop Dose Admin Acetaminophen 650 mg 01/14/20 08:09 01/16/20 10:11 Acetaminophen 325 Mg Tab PO 650 mg Q4H PRN Administration Headache/Fever/Mild Pain (1-3) Hydrocodone Bitart/Acetaminophen 1 tab 01/14/20 08:09 01/15/20 20:28 Hydrocodone/Acetaminophen 5/325 Mg Tablet PO 1 tab Q4H PRN Administration Moderate Pain (4-6) Albuterol Sulfate 2 puff 01/14/20 13:00 01/17/20 07:37 Albuterol 200 Puff (6.7gm Inhaler) INH 2 puff [id number] EVERT Administration Ascorbic Acid 1,000 mg 01/15/20 09:00 01/16/20 10:05 Ascorbic Acid 500 Mg Chewable Tablet PO 1,000 mg DAILY EVERT Administration Aspirin 81 mg 01/15/20 09:00 01/16/20 09:59 Aspirin 81 Mg Enteric Coated Tablet PO 81 mg DAILY EVERT Administration Dexamethasone 6 mg 01/15/20 08:00 01/16/20 10:06 Dexamethasone 4 Mg Tab PO 6 mg QAM-WM EVERT Administration Docusate Sodium 100 mg 01/16/20 21:00 01/16/20 20:39 Docusate 100 Mg Cap PO 100 mg BID EVERT Administration Famotidine 20 mg 01/14/20 09:00 01/16/20 20:40 Famotidine 20 Mg Tab PO 20 mg BID EVERT Administration Fluticasone Propionate 0 gm 01/16/20 09:00 01/16/20 10:12 Fluticasone Propionate Nasal [place] 16 Gm Bottle NASAL Not Given DAILY [facility] Insulin Human Lispro 0 units 01/15/20 14:45 01/17/20 06:44 Humalog 300 Units/3 Ml Vial SC 6 unit .MODERATE SLIDING SC PRN Administration Moderate Correctional Scale Iron/Minerals/Multivitamins 1 tab 01/16/20 09:00 01/16/20 09:59 Multivitamin W/ Minerals 1 Tab PO 1 tab DAILY EVERT Administration Lorazepam 0.5 mg 01/14/20 08:09 01/15/20 05:42 Lorazepam 0.5 Mg Tab PO 0.5 mg Q4H PRN Administration Anxiety Morphine Sulfate 2 mg 01/14/20 10:25 01/15/20 05:37 Morphine 2 Mg/Ml Vial SLOW IVP 2 mg Q4H PRN Administration Moderate to Severe Pain (6-10) Nicotine 14 mg 01/16/20 21:00 01/16/20 20:43 Nicotine 14 Mg Patch TD 14 mg 2100 EVERT Administration Sertraline HCl 100 mg 01/15/20 09:00 01/16/20 10:05 Sertraline Hcl 100 Mg Tab PO 100 mg DAILY EVERT Administration Tamsulosin HCl 0.4 mg 01/15/20 09:00 01/16/20 10:05 Tamsulosin Hcl 0.4 Mg Cap PO 0.4 mg QAM EVERT Administration Venlafaxine HCl 75 mg 01/15/20 09:00 01/16/20 10:05 Venlafaxine Hcl Xr 75 Mg Cap PO 75 mg QAM EVERT Administration Zinc Sulfate 220 mg 01/15/20 09:00 01/16/20 10:07 Zinc Sulfate 220 Mg Cap PO 220 mg DAILY EVERT Administration - Exam Eye: PERRL, anicteric sclera Heart: RRR, no murmur, no gallops, no rubs, normal peripheral pulses Respiratory: CTAB, no wheezes, no rales, no ronchi, normal chest expansion, no tachypnea, normal percussion Gastrointestinal: soft, non-tender, non-distended, normal bowel sounds, no palpable masses, no hepatomegaly Extremities: 1+ LE edema (+ purplish discoloration of the toes, pale color on the left, toes and feet are a little warmer) Hosp A/P (1) Peripheral vascular occlusive disease Code(s): I73.9 - PERIPHERAL VASCULAR DISEASE, UNSPECIFIED Status: Acute (2) PTSD (post-traumatic stress disorder) Code(s): F43.10 - POST-TRAUMATIC STRESS DISORDER, UNSPECIFIED Status: Acute (3) BPH (benign prostatic hyperplasia) Code(s): N40.0 - BENIGN PROSTATIC HYPERPLASIA WITHOUT LOWER URINRY TRACT SYMP Status: Chronic (4) Diabetes mellitus type 2 in obese Code(s): E11.69 - TYPE 2 DIABETES MELLITUS WITH OTHER SPECIFIED COMPLICATION; E66.9 - OBESITY, UNSPECIFIED Status: Chronic (5) HTN (hypertension) Code(s): I10 - ESSENTIAL (PRIMARY) HYPERTENSION Status: Chronic Qualifiers: Hypertension type: essential hypertension Qualified Code(s): I10 - Essential (primary) hypertension - Plan * Perpheral Vascular occlusive disease-- with Thrombotic event due to COVID infection - he is s/p thrombectomy. * He is being transition to Lovenox * HTN- blood pressure is stable * DM- will add a SSI * PTSD- continue his home medications * Pain is better controlled * Agree with Rehab screem
[2020-01-17 08:49] LABS: #Eosinphils 0.1 thou/uL (0.0-0.7); #Lymphocytes 1.4 thou/uL (1.20-3.40); #Monocytes 1.6 thou/uL (0.11-0.59); #Neutrophils 14.9 thou/uL (1.40-6.50); %Basophils 0.1 % (0.0-1.0); %Eosinophils 0.3 % (0.0-10.0); %Lymphocytes 7.6 % (21.0-51.0); %Neutrophils 83.1 % (42.0-75.0); Hemoglobin 8.9 g/dL (14.0-18.0); Mean Corpuscular HGB CONC 32.3 g/dL (32.0-36.0); Mean Corpuscular Hemoglobin 28.2 pg (27.0-31.0); Mean Corpuscular Volume 87.1 fL (78.0-98.0); Mean Platelet Volume 8.8 fL (7.4-10.4); Platelet Count 222 thou/uL (130-400); Red Blood Cell (RBC) Count 3.17 mill/uL (4.70-6.10)
[2020-01-17] MEDS ORDERED: Dextroamphetamine/Amphetamine [Adderall Xr 20 Mg Capsule] PO SCH (09:00)
[2020-01-17 09:09] LABS: Anion Gap 13 mmol/L (10-20); BUN (Urea Nitrogen) 15 mg/dL (8.4-25.7); Calc. Creatinine Clearance 181 mL/min (70-130); Calcium 7.9 mg/dL (7.8-10.44); Carbon Dioxide 22 mmol/L (23-31); Chloride 102 mmol/L (98-107); Estimated GFR-MDRD Greater than 90; Glucose 157 mg/dL (80-115); Sodium 133 mmol/L (136-145)
[2020-01-17] MEDS: Ascorbic Acid 500 mg Chewable Tablet PO SCH (10:33)
[2020-01-17] MEDS: Docusate 100 MG CAP PO SCH ×2 (10:33→20:15)
[2020-01-17] MEDS: Famotidine 20 MG TAB PO SCH ×2 (10:33→20:15)
[2020-01-17] MEDS: Fluticasone Propionate Nasal Spray 16 gm Bottle NASAL SCH (10:33)
[2020-01-17] MEDS: Enoxaparin Sodium 120 MG/0.8 ML SYRINGE SC SCH ×2 (10:34→20:15)
[2020-01-17] MEDS: Venlafaxine HCl XR 75 MG CAP PO SCH (10:34)
[2020-01-17] MEDS: Multivitamin W/ Minerals 1 TAB PO SCH (10:34)
[2020-01-17] MEDS: Dexamethasone 4 MG TAB PO SCH (10:34)
[2020-01-17] MEDS: Aspirin 81 mg Enteric Coated Tablet PO SCH (10:34)
[2020-01-17] MEDS: Tamsulosin HCl 0.4 MG CAP PO SCH (10:34)
[2020-01-17] MEDS: Acetaminophen 325 MG TAB PO PRN (10:36)
[2020-01-17] MEDS: Zinc Sulfate 220 MG CAP PO SCH (10:36)
[2020-01-17] MEDS: Nicotine 14 MG PATCH TD SCH (20:16)
[2020-01-18] MEDS: Albuterol 200 PUFF (6.7GM INHALER) INH SCH ×4 (01:51→19:38)
[2020-01-18 03:47] LABS: #Lymphocytes 1.2 thou/uL (1.20-3.40); #Monocytes 1.3 thou/uL (0.11-0.59); #Neutrophils 14.9 thou/uL (1.40-6.50); %Basophils 0.3 % (0.0-1.0); %Eosinophils 0.1 % (0.0-10.0); %Lymphocytes 6.8 % (21.0-51.0); %Monocytes 7.5 % (0.0-10.0); %Neutrophils 85.2 % (42.0-75.0); Hemoglobin 9.4 g/dL (14.0-18.0); Mean Corpuscular HGB CONC 33.4 g/dL (32.0-36.0); Mean Corpuscular Hemoglobin 28.8 pg (27.0-31.0); Mean Corpuscular Volume 86.3 fL (78.0-98.0); Mean Platelet Volume 9.7 fL (7.4-10.4); Platelet Count 217 thou/uL (130-400); RBC Distribution Width 14.9 % (11.5-14.5); Red Blood Cell (RBC) Count 3.28 mill/uL (4.70-6.10); White Blood Cell (WBC) Count 17.4 thou/uL (4.8-10.8)
[2020-01-18 03:49] LABS: Hemoglobin 9.3 g/dL (14.0-18.0); Platelet Count 220 thou/uL (130-400)
[2020-01-18 04:12] LABS: Anion Gap 12 mmol/L (10-20); BUN (Urea Nitrogen) 17 mg/dL (8.4-25.7); Calc. Creatinine Clearance 178 mL/min (70-130); Calcium 8.4 mg/dL (7.8-10.44); Carbon Dioxide 23 mmol/L (23-31); Chloride 102 mmol/L (98-107); Estimated GFR-MDRD Greater than 90; Glucose 109 mg/dL (80-115); Potassium 4.4 mmol/L (3.5-5.1); Sodium 133 mmol/L (136-145)
[2020-01-18] MEDS: Dexamethasone 4 MG TAB PO SCH (09:27)
[2020-01-18] MEDS: Ascorbic Acid 500 mg Chewable Tablet PO SCH (09:27)
[2020-01-18] MEDS: Enoxaparin Sodium 120 MG/0.8 ML SYRINGE SC SCH ×2 (09:28→20:51)
[2020-01-18] MEDS: Docusate 100 MG CAP PO SCH ×2 (09:28→20:51)
[2020-01-18] MEDS: Aspirin 81 mg Enteric Coated Tablet PO SCH (09:28)
[2020-01-18] MEDS: Dextroamphetamine/Amphetamine [Adderall Xr 20 Mg Capsule] PO SCH (09:29)
[2020-01-18] MEDS: Famotidine 20 MG TAB PO SCH ×2 (09:29→20:50)
[2020-01-18] MEDS: Multivitamin W/ Minerals 1 TAB PO SCH (09:29)
[2020-01-18] MEDS: Tamsulosin HCl 0.4 MG CAP PO SCH (09:30)
[2020-01-18] MEDS: Venlafaxine HCl XR 75 MG CAP PO SCH (09:30)
[2020-01-18] MEDS: Zinc Sulfate 220 MG CAP PO SCH (09:30)
[2020-01-18] MEDS: Morphine 2 MG/ML VIAL SLOW IVP PRN ×2 (09:31→23:16)
--- NOTE | 2020-01-18 09:54 | PRG ---
DATE OF SERVICE: 01/18/2020 Mr. Zarco has been afebrile. He has had no acute changes. Incisions are clean and dry. The patient is on Lovenox 1 per kg twice per day. He will need to be transitioned to Eliquis at the time of transfer to rehab. Job ID: [id number]
--- NOTE | 2020-01-18 10:24 | PDOC.HOSPP ---
- Subjective Encounter Date: 01/18/20 Encounter Time: 10:22 Subjective: Mr. Zarco was seen today in follow-up of Thrombotic event to the lower extremities. He notes some soreness in his left foot, and some pain in his feet last night when he tried to sleep. He denies any trouble with his breathing. - Objective Vital Signs & Weight: Vital Signs (12 hours) Temp Pulse Ox 01/18/20 08:00 96 01/18/20 07:35 99.2 F 01/18/20 04:00 98.6 F 01/17/20 23:23 98.5 F Weight Admit Weight 294 lb Weight 294 lb Most Recent Monitor Data Heart Rate from ECG 77 NIBP 143/68 NIBP BP-Mean 93 Respiration from ECG 22 SpO2 98 I&O: 01/17/20 01/18/20 01/19/20 06:59 06:59 06:59 Intake Total 2672 1350 Output Total 810 1830 Balance 1862 -480 Result Diagrams: 01/18/20 03:28 01/18/20 03:28 Additional Labs: Accuchecks 01/18/20 01/17/20 01/17/20 06:09 20:14 16:50 POC Glucose 104 H 150 H 289 H 01/17/20 10:57 POC Glucose 150 H Hospitalist ROS - Medication Medications: Active Medications Generic Name Dose Route Start Last Admin Trade Name Freq PRN Reason Stop Dose Admin Acetaminophen 650 mg 01/14/20 08:09 01/17/20 10:36 Acetaminophen 325 Mg Tab PO 650 mg Q4H PRN Administration Headache/Fever/Mild Pain (1-3) Hydrocodone Bitart/Acetaminophen 1 tab 01/14/20 08:09 01/15/20 20:28 Hydrocodone/Acetaminophen 5/325 Mg Tablet PO 1 tab Q4H PRN Administration Moderate Pain (4-6) Albuterol Sulfate 2 puff 01/14/20 13:00 01/18/20 07:46 Albuterol 200 Puff (6.7gm Inhaler) INH 2 puff [id number] EVERT Administration Ascorbic Acid 1,000 mg 01/15/20 09:00 01/18/20 09:27 Ascorbic Acid 500 Mg Chewable Tablet PO 1,000 mg DAILY EVERT Administration Aspirin 81 mg 01/15/20 09:00 11/26/20 09:28 Aspirin 81 Mg Enteric Coated Tablet PO 81 mg DAILY EVERT Administration Dexamethasone 6 mg 01/15/20 08:00 01/18/20 09:27 Dexamethasone 4 Mg Tab PO 6 mg QAM-WM EVERT Administration Docusate Sodium 100 mg 01/16/20 21:00 01/18/20 09:28 Docusate 100 Mg Cap PO 100 mg BID EVERT Administration Enoxaparin Sodium 120 mg 01/17/20 09:00 01/18/20 09:28 Enoxaparin Sodium 120 Mg/0.8 Ml Syringe SC 120 mg 0900,2099 EVERT Administration Famotidine 20 mg 01/14/20 09:00 01/18/20 09:29 Famotidine 20 Mg Tab PO 20 mg BID EVERT Administration Fluticasone Propionate 0 gm 01/16/20 09:00 01/17/20 10:33 Fluticasone Propionate Nasal [place] 16 Gm Bottle NASAL 2 spray DAILY EVERT Administration Insulin Human Lispro 0 units 01/15/20 14:45 01/17/20 17:27 Humalog 300 Units/3 Ml Vial SC 6 unit .MODERATE SLIDING SC PRN Administration Moderate Correctional Scale Iron/Minerals/Multivitamins 1 tab 01/16/20 09:00 01/18/20 09:29 Multivitamin W/ Minerals 1 Tab PO 1 tab DAILY EVERT Administration Lorazepam 0.5 mg 01/14/20 08:09 01/15/20 05:42 Lorazepam 0.5 Mg Tab PO 0.5 mg Q4H PRN Administration Anxiety Morphine Sulfate 2 mg 01/14/20 10:25 01/18/20 09:31 Morphine 2 Mg/Ml Vial SLOW IVP 2 mg Q4H PRN Administration Moderate to Severe Pain (6-10) Nicotine 14 mg 01/16/20 21:00 01/17/20 20:16 Nicotine 14 Mg Patch TD 14 mg 2100 EVERT Administration Dextroamphetamine/ 0 each 01/18/20 09:00 01/18/20 09:29 Amphetamine [ PO Not Given Adderall Xr [address] [facility] Capsule] Sertraline HCl 100 mg 01/15/20 09:00 01/18/20 09:29 Sertraline Hcl 100 Mg Tab PO 100 mg DAILY EVERT Administration Sodium Chloride 10 ml 01/17/20 09:00 01/18/20 09:29 Flush - Normal Saline 10 Ml Syringe IVF 10 ml Q12HR EVERT Administration Tamsulosin HCl 0.4 mg 01/15/20 09:00 01/18/20 09:30 Tamsulosin Hcl 0.4 Mg Cap PO 0.4 mg QAM EVERT Administration Venlafaxine HCl 75 mg 01/15/20 09:00 01/18/20 09:30 Venlafaxine Hcl Xr 75 Mg Cap PO 75 mg QAM EVERT Administration Zinc Sulfate 220 mg 01/15/20 09:00 01/18/20 09:30 Zinc Sulfate 220 Mg Cap PO 220 mg DAILY EVERT Administration - Exam Eye: PERRL, anicteric sclera Heart: RRR, no murmur, no gallops, no rubs, normal peripheral pulses Respiratory: CTAB (with only an occasional rhonchi) Gastrointestinal: soft, non-tender, non-distended, normal bowel sounds, no palpable masses, no hepatomegaly Extremities: no cyanosis, 1+ LE edema Hosp A/P (1) Peripheral vascular occlusive disease Code(s): I73.9 - PERIPHERAL VASCULAR DISEASE, UNSPECIFIED Status: Acute (2) PTSD (post-traumatic stress disorder) Code(s): F43.10 - POST-TRAUMATIC STRESS DISORDER, UNSPECIFIED Status: Acute (3) BPH (benign prostatic hyperplasia) Code(s): N40.0 - BENIGN PROSTATIC HYPERPLASIA WITHOUT LOWER URINRY TRACT SYMP Status: Chronic (4) Diabetes mellitus type 2 in obese Code(s): E11.69 - TYPE 2 DIABETES MELLITUS WITH OTHER SPECIFIED COMPLICATION; E66.9 - OBESITY, UNSPECIFIED Status: Chronic (5) HTN (hypertension) Code(s): I10 - ESSENTIAL (PRIMARY) HYPERTENSION Status: Chronic Qualifiers: Hypertension type: essential hypertension Qualified Code(s): I10 - Essential (primary) hypertension - Plan * Perpheral Vascular occlusive disease-- with Thrombotic event due to COVID infection - he is s/p thrombectomy. * Continue therapeutic Lovenox, adn after a few days this can be transitioned to Eliquis * HTN- blood pressure is stable * DM- blood glucose is stable * PTSD- continue his home medications * Pain is better controlled * Plan is for Rehab if accepted
[2020-01-18] MEDS: Acetaminophen 325 MG TAB PO PRN ×2 (11:33→23:15)
[2020-01-18] MEDS: HumaLOG 300 UNITS/3 ML VIAL SC PRN ×2 (11:33→17:17)
[2020-01-18] MEDS: Fluticasone Propionate Nasal Spray 16 gm Bottle NASAL SCH (14:10)
[2020-01-18] MEDS: Nicotine 14 MG PATCH TD SCH (20:51)
[2020-01-19] MEDS: Albuterol 200 PUFF (6.7GM INHALER) INH SCH ×5 (00:20→23:21)
[2020-01-19] MEDS: HYDROcodone/Acetaminophen 5/325 mg Tablet PO PRN (01:46)
[2020-01-19 03:59] LABS: Hemoglobin 9.5 g/dL (14.0-18.0); Platelet Count 275 thou/uL (130-400)
[2020-01-19 04:21] LABS: Calc. Creatinine Clearance 183 mL/min (70-130); Estimated GFR-MDRD Greater than 90
[2020-01-19] MEDS: Famotidine 20 MG TAB PO SCH ×2 (08:21→21:13)
[2020-01-19] MEDS: Tamsulosin HCl 0.4 MG CAP PO SCH (08:21)
[2020-01-19] MEDS: Zinc Sulfate 220 MG CAP PO SCH (08:21)
[2020-01-19] MEDS: Aspirin 81 mg Enteric Coated Tablet PO SCH (08:21)
[2020-01-19] MEDS: Multivitamin W/ Minerals 1 TAB PO SCH (08:22)
[2020-01-19] MEDS: Venlafaxine HCl XR 75 MG CAP PO SCH (08:22)
[2020-01-19] MEDS: Ascorbic Acid 500 mg Chewable Tablet PO SCH (08:22)
[2020-01-19] MEDS: Docusate 100 MG CAP PO SCH ×2 (08:22→21:13)
[2020-01-19] MEDS: Fluticasone Propionate Nasal Spray 16 gm Bottle NASAL SCH (08:23)
[2020-01-19] MEDS: Dextroamphetamine/Amphetamine [Adderall Xr 20 Mg Capsule] PO SCH (08:23)
[2020-01-19] MEDS: Enoxaparin Sodium 120 MG/0.8 ML SYRINGE SC SCH ×2 (08:23→21:13)
[2020-01-19] MEDS: Morphine 2 MG/ML VIAL SLOW IVP PRN ×2 (09:05→21:13)
--- NOTE | 2020-01-19 11:13 | PDOC.HOSPP ---
- Subjective Encounter Date: 01/19/20 Encounter Time: 11:11 Subjective: Mr. Zarco was seen today in follow-up of Thrombosis due to COVID infection. He notes some pain in both feet, primary if he tries to place pressure on it. - Objective Vital Signs & Weight: Vital Signs (12 hours) Temp 01/19/20 11:10 97.6 F 01/19/20 07:21 97.8 F 01/19/20 04:00 98.1 F 01/19/20 00:00 98.4 F Weight Admit Weight 294 lb Weight 294 lb Most Recent Monitor Data Heart Rate from ECG 93 NIBP 110/62 NIBP BP-Mean 78 Respiration from ECG 20 SpO2 97 I&O: 01/18/20 01/19/20 01/20/20 06:59 06:59 06:59 Intake Total 1350 1750 Output Total 1830 2980 200 Balance -480 -1230 -200 Result Diagrams: 01/19/20 03:32 01/19/20 03:32 Additional Labs: Accuchecks 01/19/20 01/18/20 10:46 20:28 POC Glucose 144 H 182 H Hospitalist ROS - Medication Medications: Active Medications Generic Name Dose Route Start Last Admin Trade Name Freq PRN Reason Stop Dose Admin Acetaminophen 650 mg 01/14/20 08:09 01/18/20 23:15 Acetaminophen 325 Mg Tab PO 650 mg Q4H PRN Administration Headache/Fever/Mild Pain (1-3) Hydrocodone Bitart/Acetaminophen 1 tab 01/14/20 08:09 01/19/20 01:46 Hydrocodone/Acetaminophen 5/325 Mg Tablet PO 1 tab Q4H PRN Administration Moderate Pain (4-6) Albuterol Sulfate 2 puff 01/14/20 13:00 01/19/20 08:15 Albuterol 200 Puff (6.7gm Inhaler) INH 2 puff [id number] EVERT Administration Ascorbic Acid 1,000 mg 01/15/20 09:00 01/19/20 08:22 Ascorbic Acid 500 Mg Chewable Tablet PO 1,000 mg DAILY EVERT Administration Aspirin 81 mg 01/15/20 09:00 01/19/20 08:21 Aspirin 81 Mg Enteric Coated Tablet PO 81 mg DAILY EVERT Administration Docusate Sodium 100 mg 01/16/20 21:00 01/19/20 08:22 Docusate 100 Mg Cap PO 100 mg BID EVERT Administration Enoxaparin Sodium 120 mg 01/17/20 09:00 01/19/20 08:23 Enoxaparin Sodium 120 Mg/0.8 Ml Syringe SC 120 mg 0900,2100 EVERT Administration Famotidine 20 mg 01/14/20 09:00 01/19/20 08:21 Famotidine 20 Mg Tab PO 20 mg BID EVERT Administration Fluticasone Propionate 0 gm 01/16/20 09:00 01/19/20 08:23 Fluticasone Propionate Nasal [place] 16 Gm Bottle NASAL 2 spray DAILY EVERT Administration Insulin Human Lispro 0 units 01/15/20 14:45 01/18/20 17:17 Humalog 300 Units/3 Ml Vial SC 4 unit .MODERATE SLIDING SC PRN Administration Moderate Correctional Scale Iron/Minerals/Multivitamins 1 tab 01/16/20 09:00 01/19/20 08:22 Multivitamin W/ Minerals 1 Tab PO 1 tab DAILY EVERT Administration Lorazepam 0.5 mg 01/14/20 08:09 01/15/20 05:42 Lorazepam 0.5 Mg Tab PO 0.5 mg Q4H PRN Administration Anxiety Morphine Sulfate 2 mg 01/14/20 10:25 01/19/20 09:05 Morphine 2 Mg/Ml Vial SLOW IVP 2 mg Q4H PRN Administration Moderate to Severe Pain (6-10) Nicotine 14 mg 01/16/20 21:00 01/18/20 20:51 Nicotine 14 Mg Patch TD 14 mg 2100 EVERT Administration Dextroamphetamine/ 0 each 01/18/20 09:00 01/19/20 08:23 Amphetamine [ PO Not Given Adderall Xr 20 Mg QAM EVERT Capsule] Sertraline HCl 100 mg 01/15/20 09:00 01/19/20 08:21 Sertraline Hcl 100 Mg Tab PO 100 mg DAILY EVERT Administration Sodium Chloride 10 ml 01/17/20 09:00 01/19/20 08:24 Flush - Normal Saline 10 Ml Syringe IVF 10 ml Q12HR EVERT Administration Tamsulosin HCl 0.4 mg 01/15/20 09:00 01/19/20 08:21 Tamsulosin Hcl 0.4 Mg Cap PO 0.4 mg QAM EVERT Administration Venlafaxine HCl 75 mg 01/15/20 09:00 01/19/20 08:22 Venlafaxine Hcl Xr 75 Mg Cap PO 75 mg QAM EVERT Administration Zinc Sulfate 220 mg 01/15/20 09:00 01/19/20 08:21 Zinc Sulfate 220 Mg Cap PO 220 mg DAILY EVERT Administration - Exam Eye: PERRL, anicteric sclera ENT: normocephalic atraumatic Heart: RRR, no murmur, no gallops, no rubs, normal peripheral pulses Respiratory: CTAB, no wheezes, no rales, no ronchi, normal chest expansion Gastrointestinal: soft, non-tender, non-distended, normal bowel sounds, no palpable masses, no hepatomegaly Extremities: no clubbing (+ cyanosis, and purplish discoloration of the toes on the left foot, decoming more coalesced. Right for there is pink mottling.), 1+ LE edema Hosp A/P (1) Peripheral vascular occlusive disease Code(s): I73.9 - PERIPHERAL VASCULAR DISEASE, UNSPECIFIED Status: Acute (2) PTSD (post-traumatic stress disorder) Code(s): F43.10 - POST-TRAUMATIC STRESS DISORDER, UNSPECIFIED Status: Acute (3) BPH (benign prostatic hyperplasia) Code(s): N40.0 - BENIGN PROSTATIC HYPERPLASIA WITHOUT LOWER URINRY TRACT SYMP Status: Chronic (4) Diabetes mellitus type 2 in obese Code(s): E11.69 - TYPE 2 DIABETES MELLITUS WITH OTHER SPECIFIED COMPLICATION; E66.9 - OBESITY, UNSPECIFIED Status: Chronic (5) HTN (hypertension) Code(s): I10 - ESSENTIAL (PRIMARY) HYPERTENSION Status: Chronic Qualifiers: Hypertension type: essential hypertension Qualified Code(s): I10 - Essential (primary) hypertension - Plan * Perpheral Vascular occlusive disease-- with Thrombotic event due to COVID infection - he is s/p thrombectomy. * Continue therapeutic Lovenox- once he is accepted to rehab- transition to [facility] * HTN- blood pressure is stable * DM- blood glucose is stable * PTSD- continue his home medications * Continue Symptom relief * Rehab screen is in progress
[2020-01-19] MEDS: HumaLOG 300 UNITS/3 ML VIAL SC PRN (17:27)
[2020-01-19] MEDS: Acetaminophen 325 MG TAB PO PRN (18:50)
[2020-01-19] MEDS: Nicotine 14 MG PATCH TD SCH (21:13)
[2020-01-20] MEDS: Acetaminophen 325 MG TAB PO PRN ×2 (01:59→14:06)
[2020-01-20 03:45] LABS: Hemoglobin 9.8 g/dL (14.0-18.0); Platelet Count 311 thou/uL (130-400)
[2020-01-20 04:02] LABS: Calc. Creatinine Clearance 176 mL/min (70-130); Estimated GFR-MDRD Greater than 90
[2020-01-20] MEDS: Docusate 100 MG CAP PO SCH ×3 (07:55→21:44)
[2020-01-20] MEDS: Multivitamin W/ Minerals 1 TAB PO SCH (07:55)
[2020-01-20] MEDS: Ascorbic Acid 500 mg Chewable Tablet PO SCH (07:55)
[2020-01-20] MEDS: Venlafaxine HCl XR 75 MG CAP PO SCH (07:55)
[2020-01-20] MEDS: Aspirin 81 mg Enteric Coated Tablet PO SCH (07:55)
[2020-01-20] MEDS: Zinc Sulfate 220 MG CAP PO SCH (07:56)
[2020-01-20] MEDS: Fluticasone Propionate Nasal Spray 16 gm Bottle NASAL SCH (07:56)
[2020-01-20] MEDS: Enoxaparin Sodium 120 MG/0.8 ML SYRINGE SC SCH (07:56)
[2020-01-20] MEDS: Tamsulosin HCl 0.4 MG CAP PO SCH (07:56)
[2020-01-20] MEDS: Famotidine 20 MG TAB PO SCH ×2 (07:57→21:29)
[2020-01-20] MEDS: Dextroamphetamine/Amphetamine [Adderall Xr 20 Mg Capsule] PO SCH (08:00)
[2020-01-20 08:21] LABS: Platelet Count 328 thou/uL (130-400)
[2020-01-20] MEDS: Albuterol 200 PUFF (6.7GM INHALER) INH SCH ×3 (08:49→18:48)
--- NOTE | 2020-01-20 10:10 | PRG ---
DATE OF SERVICE: 01/20/2020 Mr. Zarco has remained afebrile. His incisions are healing nicely. Perfusion to his lower extremities remains stable. Discoloration in his feet is unchanged. Plan for him is rehab as soon as beds are available. Job ID: [id number]
--- NOTE | 2020-01-20 13:48 | PDOC.HOSPP ---
- Subjective Encounter Date: 01/20/20 Encounter Time: 12:20 Subjective: Patient sister at bedside. He appears well. He is communicating without any sign of confusion. Sister is asking whether we could do massage on his legs. He had a thrombus and status post thrombectomy. He is on Lovenox twice daily dose currently. - Objective Vital Signs & Weight: Vital Signs (12 hours) Temp Pulse Pulse BP BP Pulse Ox Pulse Ox 01/20/20 11:40 99.4 F 01/20/20 09:57 94 95 138/81 125/77 93 L 01/20/20 08:00 94 L 01/20/20 07:12 98.5 F 01/20/20 03:47 98.3 F Pulse Ox 01/20/20 11:40 01/20/20 09:57 93 L 01/20/20 08:00 01/20/20 07:12 01/20/20 03:47 Weight Admit Weight 294 lb Weight 294 lb Most Recent Monitor Data Heart Rate from ECG 94 NIBP 117/69 NIBP BP-Mean 85 Respiration from ECG 26 SpO2 97 I&O: 01/19/20 01/20/20 01/21/20 06:59 06:59 06:59 Intake Total 1750 1070 Output Total 2980 1230 Balance -1230 -160 Result Diagrams: 01/20/20 08:08 01/20/20 03:25 Additional Labs: Accuchecks 01/20/20 01/20/20 01/19/20 10:56 07:47 20:13 POC Glucose 150 H 104 H 173 H 01/19/20 16:49 POC Glucose 195 H Hospitalist ROS - Medication Medications: Active Medications Generic Name Dose Route Start Last Admin Trade Name Freq PRN Reason Stop Dose Admin Acetaminophen 650 mg 01/14/20 08:09 01/20/20 01:59 Acetaminophen 325 Mg Tab PO 650 mg Q4H PRN Administration Headache/Fever/Mild Pain (1-3) Hydrocodone Bitart/Acetaminophen 1 tab 01/14/20 08:09 01/19/20 01:46 Hydrocodone/Acetaminophen 5/325 Mg Tablet PO 1 tab Q4H PRN Administration Moderate Pain (4-6) Albuterol Sulfate 2 puff 01/14/20 13:00 01/20/20 08:49 Albuterol 200 Puff (6.7gm Inhaler) INH 2 puff [id number] EVERT Administration Ascorbic Acid 1,000 mg 01/15/20 09:00 01/20/20 07:55 Ascorbic Acid 500 Mg Chewable Tablet PO 1,000 mg DAILY EVERT Administration Aspirin 81 mg 01/15/20 09:00 01/20/20 07:55 Aspirin 81 Mg Enteric Coated Tablet PO 81 mg DAILY EVERT Administration Docusate Sodium 100 mg 01/16/20 21:00 01/20/20 07:55 Docusate 100 Mg Cap PO 100 mg BID EVERT Administration Enoxaparin Sodium 120 mg 01/17/20 09:00 01/20/20 07:56 Enoxaparin Sodium 120 Mg/0.8 Ml Syringe SC 120 mg 899,2099 EVERT Administration Famotidine 20 mg 01/14/20 09:00 01/20/20 07:57 Famotidine 20 Mg Tab PO 20 mg BID EVERT Administration Fluticasone Propionate 0 gm 01/16/20 09:00 01/20/20 07:56 Fluticasone Propionate Nasal [place] 16 Gm Bottle NASAL 2 spray DAILY EVERT Administration Insulin Human Lispro 0 units 01/15/20 14:45 01/19/20 17:27 Humalog 300 Units/3 Ml Vial SC 2 unit .MODERATE SLIDING SC PRN Administration Moderate Correctional Scale Iron/Minerals/Multivitamins 1 tab 01/16/20 09:00 01/20/20 07:55 Multivitamin W/ Minerals 1 Tab PO 1 tab DAILY EVERT Administration Lorazepam 0.5 mg 01/14/20 08:09 01/15/20 05:42 Lorazepam 0.5 Mg Tab PO 0.5 mg Q4H PRN Administration Anxiety Morphine Sulfate 2 mg 01/14/20 10:25 01/19/20 21:13 Morphine 2 Mg/Ml Vial SLOW IVP 2 mg Q4H PRN Administration Moderate to Severe Pain (6-10) Nicotine 14 mg 01/16/20 21:00 01/19/20 21:13 Nicotine 14 Mg Patch TD 14 mg 2100 EVERT Administration Dextroamphetamine/ 0 each 01/18/20 09:00 01/20/20 08:00 Amphetamine [ PO 1 each Adderall Xr 20 Mg QAM EVERT Administration Capsule] Sertraline HCl 100 mg 01/15/20 09:00 01/20/20 07:56 Sertraline Hcl 100 Mg Tab PO 100 mg DAILY EVERT Administration Sodium Chloride 10 ml 01/17/20 09:00 01/20/20 07:57 Flush - Normal Saline 10 Ml Syringe IVF 10 ml Q12HR EVERT Administration Tamsulosin HCl 0.4 mg 01/15/20 09:00 01/20/20 07:56 Tamsulosin Hcl 0.4 Mg Cap PO 0.4 mg QAM EVERT Administration Venlafaxine HCl 75 mg 01/15/20 09:00 01/20/20 07:55 Venlafaxine Hcl Xr 75 Mg Cap PO 75 mg QAM EVERT Administration Zinc Sulfate 220 mg 01/15/20 09:00 01/20/20 07:56 Zinc Sulfate 220 Mg Cap PO 220 mg DAILY EVERT Administration - Exam General Appearance: NAD, awake alert Eye: PERRL ENT: normocephalic atraumatic Neck: supple Heart: RRR Respiratory: CTAB, normal chest expansion Gastrointestinal: soft, normal bowel sounds Extremities: no edema Neurological: no focal deficits Psychiatric: A&O x 3 Hosp A/P - Plan (1) Peripheral vascular occlusive disease Code(s): I73.9 - PERIPHERAL VASCULAR DISEASE, UNSPECIFIED Status: Acute (2) PTSD (post-traumatic stress disorder) Code(s): F43.10 - POST-TRAUMATIC STRESS DISORDER, UNSPECIFIED Status: Acute (3) BPH (benign prostatic hyperplasia) Code(s): N40.0 - BENIGN PROSTATIC HYPERPLASIA WITHOUT LOWER URINRY TRACT SYMP Status: Chronic (4) Diabetes mellitus type 2 in obese Code(s): E11.69 - TYPE 2 DIABETES MELLITUS WITH OTHER SPECIFIED COMPLICATION; E66.9 - OBESITY, UNSPECIFIED Status: Chronic (5) HTN (hypertension) Code(s): I10 - ESSENTIAL (PRIMARY) HYPERTENSION Status: Chronic Qualifiers: Hypertension type: essential hypertension Qualified Code(s): I10 - Essential (primary) hypertension - Plan * Perpheral Vascular occlusive disease-- with Thrombotic event due to COVID infection - he is s/p thrombectomy. * Continue therapeutic Lovenox-- transition to Eliquis * HTN- blood pressure is stable * DM- blood glucose is stable * PTSD-he is on Adderall * due to insurance issues --his rehab plan is delayed. I will switch him from Lovenox to Eliquis. Renal function okay. Leukocytosis-we will follow up on the white count. Tobacco abuse on nicotine patch.
[2020-01-20] MEDS: Morphine 2 MG/ML VIAL SLOW IVP PRN (21:29)
[2020-01-20] MEDS: Nicotine 14 MG PATCH TD SCH (21:29)
[2020-01-20] MEDS: Apixaban 5 MG TAB PO SCH (21:29)
[2020-01-21] MEDS: Albuterol 200 PUFF (6.7GM INHALER) INH SCH ×3 (00:01→14:12)
[2020-01-21] MEDS: Zinc Sulfate 220 MG CAP PO SCH (08:06)
[2020-01-21] MEDS: Multivitamin W/ Minerals 1 TAB PO SCH (08:06)
[2020-01-21] MEDS: Venlafaxine HCl XR 75 MG CAP PO SCH (08:07)
[2020-01-21] MEDS: Aspirin 81 mg Enteric Coated Tablet PO SCH (08:07)
[2020-01-21] MEDS: Tamsulosin HCl 0.4 MG CAP PO SCH (08:07)
[2020-01-21] MEDS: Famotidine 20 MG TAB PO SCH ×2 (08:07→21:35)
[2020-01-21] MEDS: Apixaban 5 MG TAB PO SCH ×2 (08:08→21:34)
[2020-01-21] MEDS: Ascorbic Acid 500 mg Chewable Tablet PO SCH (08:08)
[2020-01-21] MEDS: Fluticasone Propionate Nasal Spray 16 gm Bottle NASAL SCH (08:08)
[2020-01-21] MEDS: Dextroamphetamine/Amphetamine [Adderall Xr 20 Mg Capsule] PO SCH (08:08)
[2020-01-21] MEDS: Docusate 100 MG CAP PO SCH ×2 (08:15→21:35)
[2020-01-21 10:49] LABS: #Eosinphils 0.1 thou/uL (0.0-0.7); #Lymphocytes 1.6 thou/uL (1.20-3.40); #Monocytes 1.9 thou/uL (0.11-0.59); #Neutrophils 15.2 thou/uL (1.40-6.50); %Eosinophils 0.5 % (0.0-10.0); %Lymphocytes 8.4 % (21.0-51.0); %Monocytes 10.1 % (0.0-10.0); Hemoglobin 9.9 g/dL (14.0-18.0); Mean Corpuscular HGB CONC 31.6 g/dL (32.0-36.0); Mean Corpuscular Volume 85.3 fL (78.0-98.0); Mean Platelet Volume 8.1 fL (7.4-10.4); Platelet Count 339 thou/uL (130-400); RBC Distribution Width 15.6 % (11.5-14.5); Red Blood Cell (RBC) Count 3.66 mill/uL (4.70-6.10); White Blood Cell (WBC) Count 18.8 thou/uL (4.8-10.8)
[2020-01-21] MEDS: Acetaminophen 325 MG TAB PO PRN (11:12)
--- NOTE | 2020-01-21 12:20 | PDOC.HOSPP ---
- Subjective Encounter Date: 01/21/20 Encounter Time: 11:30 Subjective: Patient doing well he feels much better. He is working with the files and laptop. Sister at bedside. They said that he used to take gabapentin but I do not see that as a home regimen. Wound drain in place on the left foot. - Objective Vital Signs & Weight: Vital Signs (12 hours) Temp Pulse Resp BP Pulse Ox 01/21/20 11:19 98.6 F 84 22 H 111/87 96 01/21/20 11:13 98.3 F 01/21/20 08:00 95 01/21/20 07:12 98.5 F 01/21/20 04:12 97.8 F Weight Admit Weight 294 lb Weight 294 lb Most Recent Monitor Data Heart Rate from ECG 92 NIBP 111/67 NIBP BP-Mean 81 Respiration from ECG 15 SpO2 100 I&O: 01/20/20 01/21/20 01/22/20 06:59 06:59 06:59 Intake Total 1070 870 240 Output Total 1230 530 Balance -160 340 240 Result Diagrams: 01/21/20 10:38 01/20/20 03:25 Additional Labs: Accuchecks 01/21/20 01/21/20 01/20/20 10:50 05:27 20:09 POC Glucose 89 132 H 169 H 01/20/20 16:07 POC Glucose 150 H Hospitalist ROS - Medication Medications: Active Medications Generic Name Dose Route Start Last Admin Trade Name Freq PRN Reason Stop Dose Admin Acetaminophen 650 mg 01/14/20 08:09 01/21/20 11:12 Acetaminophen 325 Mg Tab PO 650 mg Q4H PRN Administration Headache/Fever/Mild Pain (1-3) Hydrocodone Bitart/Acetaminophen 1 tab 01/14/20 08:09 01/19/20 01:46 Hydrocodone/Acetaminophen 5/325 Mg Tablet PO 1 tab Q4H PRN Administration Moderate Pain (4-6) Albuterol Sulfate 2 puff 01/14/20 13:00 01/21/20 06:30 Albuterol 200 Puff (6.7gm Inhaler) INH 2 puff [id number] EVERT Administration Apixaban 5 mg 01/20/20 21:00 01/21/20 08:08 Apixaban 5 Mg Tab PO 5 mg BID EVERT Administration Ascorbic Acid 1,000 mg 01/15/20 09:00 01/21/20 08:08 Ascorbic Acid 500 Mg Chewable Tablet PO 1,000 mg DAILY EVERT Administration Aspirin 81 mg 01/15/20 09:00 01/21/20 08:07 Aspirin 81 Mg Enteric Coated Tablet PO 81 mg DAILY EVERT Administration Docusate Sodium 100 mg 01/16/20 21:00 01/21/20 08:15 Docusate 100 Mg Cap PO Not Given BID EVERT Famotidine 20 mg 01/14/20 09:00 01/21/20 08:07 Famotidine 20 Mg Tab PO 20 mg BID EVERT Administration Fluticasone Propionate 0 gm 01/16/20 09:00 01/21/20 08:08 Fluticasone Propionate Nasal [place] 16 Gm Bottle NASAL 2 spray DAILY EVERT Administration Insulin Human Lispro 0 units 01/15/20 14:45 01/19/20 17:27 Humalog 300 Units/3 Ml Vial SC 2 unit .MODERATE SLIDING SC PRN Administration Moderate Correctional Scale Iron/Minerals/Multivitamins 1 tab 01/16/20 09:00 01/21/20 08:06 Multivitamin W/ Minerals 1 Tab PO 1 tab DAILY EVERT Administration Lorazepam 0.5 mg 01/14/20 08:09 01/15/20 05:42 Lorazepam 0.5 Mg Tab PO 0.5 mg Q4H PRN Administration Anxiety Morphine Sulfate 2 mg 01/14/20 10:25 01/20/20 21:29 Morphine 2 Mg/Ml Vial SLOW IVP 2 mg Q4H PRN Administration Moderate to Severe Pain (6-10) Nicotine 14 mg 01/16/20 21:00 01/20/20 21:29 Nicotine 14 Mg Patch TD 14 mg 2100 EVERT Administration Dextroamphetamine/ 0 each 01/18/20 09:00 01/21/20 08:08 Amphetamine [ PO 1 each Adderall Xr 20 Mg QAM EVERT Administration Capsule] Sertraline HCl 100 mg 01/15/20 09:00 01/21/20 08:07 Sertraline Hcl 100 Mg Tab PO 100 mg DAILY EVERT Administration Sodium Chloride 10 ml 01/17/20 09:00 01/21/20 08:09 Flush - Normal Saline 10 Ml Syringe IVF 10 ml Q12HR EVERT Administration Tamsulosin HCl 0.4 mg 01/15/20 09:00 01/21/20 08:07 Tamsulosin Hcl 0.4 Mg Cap PO 0.4 mg QAM EVERT Administration Venlafaxine HCl 75 mg 01/15/20 09:00 01/21/20 08:07 Venlafaxine Hcl Xr 75 Mg Cap PO 75 mg QAM EVERT Administration Zinc Sulfate 220 mg 01/15/20 09:00 01/21/20 08:06 Zinc Sulfate 220 Mg Cap PO 220 mg DAILY EVERT Administration - Exam General Appearance: NAD, awake alert Eye: PERRL ENT: normocephalic atraumatic Neck: supple Heart: RRR Respiratory: CTAB Gastrointestinal: soft, normal bowel sounds Extremities - other findings: Wound to drain on the left foot Neurological: no focal deficits Psychiatric: A&O x 3 Hosp A/P - Plan (1) Peripheral vascular occlusive disease Code(s): I73.9 - PERIPHERAL VASCULAR DISEASE, UNSPECIFIED Status: Acute (2) PTSD (post-traumatic stress disorder) Code(s): F43.10 - POST-TRAUMATIC STRESS DISORDER, UNSPECIFIED Status: Acute (3) BPH (benign prostatic hyperplasia) Code(s): N40.0 - BENIGN PROSTATIC HYPERPLASIA WITHOUT LOWER URINRY TRACT SYMP Status: Chronic (4) Diabetes mellitus type 2 in obese Code(s): E11.69 - TYPE 2 DIABETES MELLITUS WITH OTHER SPECIFIED COMPLICATION; E66.9 - OBESITY, UNSPECIFIED Status: Chronic (5) HTN (hypertension) Code(s): I10 - ESSENTIAL (PRIMARY) HYPERTENSION Status: Chronic Qualifiers: Hypertension type: essential hypertension Qualified Code(s): I10 - Essential (primary) hypertension - Plan * Perpheral Vascular occlusive disease-- with Thrombotic event due to COVID infection - he is s/p thrombectomy. * Continue therapeutic Lovenox-- transitioned to Eliquis * HTN- blood pressure is stable * DM- blood glucose is stable * PTSD-he is on Adderall * Narcolepsy due to insurance issues --his rehab plan is delayed. I will switch him from Lovenox to Eliquis. Renal function okay. Leukocytosis-we will follow up on the white count. Tobacco abuse on nicotine patch. Peripheral neuropathy -Started him on low-dose gabapentin Stable to transfer to the medical floor. Order placed.
[2020-01-21] MEDS: Gabapentin 100 MG CAP PO SCH ×2 (14:13→21:35)
[2020-01-21] MEDS: HumaLOG 300 UNITS/3 ML VIAL SC PRN (17:17)
[2020-01-21] MEDS: HYDROcodone/Acetaminophen 5/325 mg Tablet PO PRN (21:33)
[2020-01-21] MEDS: Nicotine 14 MG PATCH TD SCH (21:34)
[2020-01-22] MEDS: Albuterol 200 PUFF (6.7GM INHALER) INH SCH ×4 (00:06→13:29)
[2020-01-22 05:50] LABS: #Eosinphils 0.1 thou/uL (0.0-0.7); #Lymphocytes 1.5 thou/uL (1.20-3.40); #Monocytes 1.6 thou/uL (0.11-0.59); #Neutrophils 15.6 thou/uL (1.40-6.50); %Basophils 0.1 % (0.0-1.0); %Eosinophils 0.8 % (0.0-10.0); %Lymphocytes 7.8 % (21.0-51.0); %Monocytes 8.7 % (0.0-10.0); %Neutrophils 82.6 % (42.0-75.0); Mean Corpuscular HGB CONC 31.7 g/dL (32.0-36.0); Mean Corpuscular Hemoglobin 26.9 pg (27.0-31.0); Mean Corpuscular Volume 84.9 fL (78.0-98.0); Mean Platelet Volume 8.9 fL (7.4-10.4); Platelet Count 341 thou/uL (130-400); RBC Distribution Width 15.8 % (11.5-14.5); White Blood Cell (WBC) Count 18.9 thou/uL (4.8-10.8)
[2020-01-22 06:13] LABS: Anion Gap 13 mmol/L (10-20); BUN (Urea Nitrogen) 20 mg/dL (8.4-25.7); Calc. Creatinine Clearance 176 mL/min (70-130); Calcium 8.4 mg/dL (7.8-10.44); Carbon Dioxide 24 mmol/L (23-31); Chloride 100 mmol/L (98-107); Estimated GFR-MDRD Greater than 90; Glucose 115 mg/dL (80-115); Potassium 4.5 mmol/L (3.5-5.1); Sodium 132 mmol/L (136-145)
[2020-01-22] MEDS: Zinc Sulfate 220 MG CAP PO SCH (09:40)
[2020-01-22] MEDS: Famotidine 20 MG TAB PO SCH (09:40)
[2020-01-22] MEDS: Ascorbic Acid 500 mg Chewable Tablet PO SCH (09:40)
[2020-01-22] MEDS: Tamsulosin HCl 0.4 MG CAP PO SCH (09:40)
[2020-01-22] MEDS: Gabapentin 100 MG CAP PO SCH ×2 (09:40→15:00)
[2020-01-22] MEDS: Venlafaxine HCl XR 75 MG CAP PO SCH (09:41)
[2020-01-22] MEDS: Docusate 100 MG CAP PO SCH (09:41)
[2020-01-22] MEDS: Aspirin 81 mg Enteric Coated Tablet PO SCH (09:41)
[2020-01-22] MEDS: Multivitamin W/ Minerals 1 TAB PO SCH (09:41)
[2020-01-22] MEDS: Apixaban 5 MG TAB PO SCH (09:41)
[2020-01-22] MEDS: Fluticasone Propionate Nasal Spray 16 gm Bottle NASAL SCH (09:48)
[2020-01-22] MEDS: Dextroamphetamine/Amphetamine [Adderall Xr 20 Mg Capsule] PO SCH (10:13)
[2020-01-22] MEDS: HYDROcodone/Acetaminophen 5/325 mg Tablet PO PRN (10:49)
--- NOTE | 2020-01-22 12:53 | PDOC.HOSPP ---
- Subjective Encounter Date: 01/22/20 Encounter Time: 10:10 Subjective: Patient doing well. He has no acute complaints. Mentation at baseline. Discharge plan explained to him that we are waiting for the rehab placement. Incision on his left leg seems to be looking good. Wound VAC. - Objective Vital Signs & Weight: Vital Signs (12 hours) Temp Pulse Resp BP Pulse Ox 01/22/20 07:21 97.7 F 84 18 115/66 94 L 01/22/20 03:30 99.2 F 84 16 122/74 95 Weight Admit Weight 294 lb Weight 294 lb Most Recent Monitor Data Heart Rate from ECG 92 NIBP 111/67 NIBP BP-Mean 81 Respiration from ECG 15 SpO2 100 I&O: 01/21/20 01/22/20 01/23/20 06:59 06:59 06:59 Intake Total 870 1740 Output Total 530 1050 Balance 340 690 Result Diagrams: 01/22/20 05:16 01/22/20 05:16 Additional Labs: Accuchecks 01/22/20 01/22/20 01/21/20 11:40 05:40 21:00 POC Glucose 100 118 H 129 H 01/21/20 01/20/20 01/19/20 15:31 05:35 05:31 POC Glucose 161 H 114 H 102 H 01/18/20 16:43 POC Glucose 243 H Hospitalist ROS - Medication Medications: Active Medications Generic Name Dose Route Start Last Admin Trade Name Freq PRN Reason Stop Dose Admin Acetaminophen 650 mg 01/14/20 08:09 01/21/20 11:12 Acetaminophen 325 Mg Tab PO 650 mg Q4H PRN Administration Headache/Fever/Mild Pain (1-3) Hydrocodone Bitart/Acetaminophen 1 tab 01/14/20 08:09 01/22/20 10:49 Hydrocodone/Acetaminophen 5/325 Mg Tablet PO 1 tab Q4H PRN Administration Moderate Pain (4-6) Albuterol Sulfate 2 puff 01/14/20 13:00 01/22/20 06:51 Albuterol 200 Puff (6.7gm Inhaler) INH 2 puff [id number] EVERT Administration Apixaban 5 mg 01/20/20 21:00 01/22/20 09:41 Apixaban 5 Mg Tab PO 5 mg BID EVERT Administration Ascorbic Acid 1,000 mg 01/15/20 09:00 01/22/20 09:40 Ascorbic Acid 500 Mg Chewable Tablet PO 1,000 mg DAILY EVERT Administration Aspirin 81 mg 01/15/20 09:00 01/22/20 09:41 Aspirin 81 Mg Enteric Coated Tablet PO 81 mg DAILY EVERT Administration Docusate Sodium 100 mg 01/16/20 21:00 01/22/20 09:41 Docusate 100 Mg Cap PO Not Given BID EVERT Famotidine 20 mg 01/14/20 09:00 01/22/20 09:40 Famotidine 20 Mg Tab PO 20 mg BID EVERT Administration Fluticasone Propionate 0 gm 01/16/20 09:00 01/22/20 09:48 Fluticasone Propionate Nasal [place] 16 Gm Bottle NASAL 2 spray DAILY EVERT Administration Gabapentin 100 mg 01/21/20 15:00 01/22/20 09:40 Gabapentin 100 Mg Cap PO 100 mg TID EVERT Administration Insulin Human Lispro 0 units 01/15/20 14:45 01/21/20 17:17 Humalog 300 Units/3 Ml Vial SC 2 unit .MODERATE SLIDING SC PRN Administration Moderate Correctional Scale Iron/Minerals/Multivitamins 1 tab 01/16/20 09:00 01/22/20 09:41 Multivitamin W/ Minerals 1 Tab PO 1 tab DAILY EVERT Administration Lorazepam 0.5 mg 01/14/20 08:09 01/15/20 05:42 Lorazepam 0.5 Mg Tab PO 0.5 mg Q4H PRN Administration Anxiety Morphine Sulfate 2 mg 01/14/20 10:25 01/20/20 21:29 Morphine 2 Mg/Ml Vial SLOW IVP 2 mg Q4H PRN Administration Moderate to Severe Pain (6-10) Nicotine 14 mg 01/16/20 21:00 01/21/20 21:34 Nicotine 14 Mg Patch TD 14 mg 2100 EVERT Administration Dextroamphetamine/ 0 each 01/18/20 09:00 01/22/20 10:13 Amphetamine [ PO 1 each Adderall Xr 20 Mg QAM EVERT Administration Capsule] Sertraline HCl 100 mg 01/15/20 09:00 01/22/20 09:40 Sertraline Hcl 100 Mg Tab PO 100 mg DAILY EVERT Administration Sodium Chloride 10 ml 01/17/20 09:00 01/22/20 09:42 Flush - Normal Saline 10 Ml Syringe IVF 10 ml Q12HR EVERT Administration Tamsulosin HCl 0.4 mg 01/15/20 09:00 01/22/20 09:40 Tamsulosin Hcl 0.4 Mg Cap PO 0.4 mg QAM EVERT Administration Venlafaxine HCl 75 mg 01/15/20 09:00 01/22/20 09:41 Venlafaxine Hcl Xr 75 Mg Cap PO 75 mg QAM EVERT Administration Zinc Sulfate 220 mg 01/15/20 09:00 01/22/20 09:40 Zinc Sulfate 220 Mg Cap PO 220 mg DAILY EVERT Administration - Exam Eye: PERRL ENT: normocephalic atraumatic Neck: supple Heart: RRR Respiratory: CTAB, normal chest expansion Gastrointestinal: soft, normal bowel sounds Skin - other findings: Incision on the left leg looks good. Neurological: no focal deficits Psychiatric: A&O x 3 Hosp A/P - Plan (1) Peripheral vascular occlusive disease Code(s): I73.9 - PERIPHERAL VASCULAR DISEASE, UNSPECIFIED Status: Acute (2) PTSD (post-traumatic stress disorder) Code(s): F43.10 - POST-TRAUMATIC STRESS DISORDER, UNSPECIFIED Status: Acute (3) BPH (benign prostatic hyperplasia) Code(s): N40.0 - BENIGN PROSTATIC HYPERPLASIA WITHOUT LOWER URINRY TRACT SYMP Status: Chronic (4) Diabetes mellitus type 2 in obese Code(s): E11.69 - TYPE 2 DIABETES MELLITUS WITH OTHER SPECIFIED COMPLICATION; E66.9 - OBESITY, UNSPECIFIED Status: Chronic (5) HTN (hypertension) Code(s): I10 - ESSENTIAL (PRIMARY) HYPERTENSION Status: Chronic Qualifiers: Hypertension type: essential hypertension Qualified Code(s): I10 - Essential (primary) hypertension - Plan * Perpheral Vascular occlusive disease-- with Thrombotic event due to COVID infection - he is s/p thrombectomy. * Continue therapeutic Lovenox-- transitioned to Eliquis * HTN- blood pressure is stable * DM- blood glucose is stable * PTSD-he is on Adderall * Narcolepsy due to insurance issues --his rehab plan is delayed. I will switch him from Lovenox to Eliquis. Renal function okay. Leukocytosis-we will follow up on the white count. Tobacco abuse on nicotine patch. Peripheral neuropathy -Started him on low-dose gabapentin Incision on his left leg seems to be looking good. Wound VAC. Discharge plan explained to him that we are waiting for the rehab placement.
[2020-01-22 16:44] VITALS: BP 132/80; TEMP 99.2
--- NOTE | 2020-01-24 07:16 | PQF ---
Dear : Bryanna Licona Date 01/24/2020 Please exercise your independent, professional judgment in responding to the clarification form. Clinical indicators are provided on the bottom of this form for your review Can you please further clarify the diagnosis of the patient? COVID 19 Clarification and Manifestations: Please check appropriate box(es): A. COVID 19 virus diagnosis Validation: [ x ] History of COVID-19 only [ ] COVID-19 Pneumonia is a current condition [ ] Other diagnosis, please specify [ ] Unable to determine Physician Signature: Date/Time: For continuity of documentation, please document condition throughout progress notes and discharge summary. Thank You. To be completed by CDI/Coding staff for physician review: Present Clinical Indicators - Signs / Symptoms / Labs Results and Location in Medical Record [ x ] Presented back on 01/02 where he was found to be COVID positive Consult pg.1 [ x ] History of recently diagnosed COVID infection H and P pg.2 [ x ] Since his COVID test was over 10 days ago, it has been 11 days, H and P pg.3 [ x ] Thrombotic event due to COVID infection Hospitalist PN pg.1 [ x ] COVID19 [place]- Detected A* Serology 01/03/20 [ x ] WBC: 01/14=12.7 01/15=14.8 01/16=18.0 01/21=18.9 Laboratory 01/14 Present Risk Factors Results and Location in Medical Record [ x ] Smokes 1 to packs per day H and P pg.1 [ x ] 64 years old H and P pg.1 [ x ] DM Consult 01/13 [ x ] Morbid Obesity Consult 01/13 Present Treatments Results and Location in Medical Record [ x ] Isolation H and P pg.3 [ x ] IV Fluids MAR [ x ] DuoNeb 3ml NEB MAR [ x ] Albuterol 2 puff MAR [ x ] Dexamethasone 6mg PO MAR CDS/Fence Post Driver Signature: Adair Drake Phone #: ext [phone] Date/Time: 01/24/2020 This is a permanent part of the Medical Record [facility]
--- NOTE | 2020-01-24 19:49 | PQF ---
Dear : Bryanna Licona Date 01/24/2020 Please exercise your independent, professional judgment in responding to the clarification form. Clinical indicators are provided on the bottom of this form for your review Can you please further clarify the diagnosis of the patient? Please check appropriate box(es): [ ] Hyponatremia [x ] Insignificant Laboratory findings [ ] Other diagnosis please specify [ ] Unable to determine Physician Signature: Date/Time: For continuity of documentation, please document condition throughout progress notes and discharge summary. Thank You. To be completed by CDI/Coding staff for physician review: Present Clinical Indicators - Signs / Symptoms / Labs Results and Location in Medical Record [ x ] Sodium: 135L, 134L, 133L, 133L, 132L Laboratory [ x ] The patient is a bit confused Present Risk Factors Results and Location in Medical Record [ x ] 64 years old H and P pg.1 [ x ] Smoking 1-1/2 packs per day H and P pg.1 [ x ] HTN H and P pg.1 [ x ] DM H and P pg.1 [ x ] Obese Hospitalist PN pg.5 Present Treatments Results and Location in Medical Record [ x ] Sodium Monitoring Laboratory [ x ] Sodium Chloride 10ml IV MAR [ x ] IV Fluids MAR CDS/Vinyl Top Installer Signature: Adair Drake Phone #: ext [phone] Date 01/24/2020 This is a permanent part of the Medical Record [facility]
== END 2020-01-22 18:03 | DRG 254 ==
LOC: SDC 03:01 → IMCU/EMU 06:08 → SURG B 01-21 13:26
PROVIDERS: ADMIT Internal Medicine; ATTEND Internal Medicine
PROC: 04CM0ZZ Extirpation of Matter from Right Popliteal Artery, Open Approach (ICD-10-PCS; principal; 2020-01-14)
PROC: 04CN0ZZ Extirpation of Matter from Left Popliteal Artery, Open Approach (ICD-10-PCS; 2020-01-15)
DX: E11.51 Type 2 diabetes mellitus with diabetic peripheral angiopathy without gangrene (principal); I75.021 Atheroembolism of right lower extremity; I74.3 Embolism and thrombosis of arteries of the lower extremities; I74.5 Embolism and thrombosis of iliac artery; Z86.19 Personal history of other infectious and parasitic diseases; I70.202 Unspecified atherosclerosis of native arteries of extremities, left leg; I10 Essential (primary) hypertension; N40.0 Benign prostatic hyperplasia without lower urinary tract symptoms; M19.90 Unspecified osteoarthritis, unspecified site; F43.10 Post-traumatic stress disorder, unspecified; E66.01 Morbid (severe) obesity due to excess calories; E11.69 Type 2 diabetes mellitus with other specified complication; H54.61 Unqualified visual loss, right eye, normal vision left eye; E11.42 Type 2 diabetes mellitus with diabetic polyneuropathy; G47.419 Narcolepsy without cataplexy; F17.210 Nicotine dependence, cigarettes, uncomplicated; Z90.49 Acquired absence of other specified parts of digestive tract; Z79.82 Long term (current) use of aspirin; Z79.899 Other long term (current) drug therapy; Z68.35 Body mass index [BMI] 35.0-35.9, adult; Z83.3 Family history of diabetes mellitus
CPT/HCPCS: 36415; 36416; 80048; 82565; 85014; 85018; 85025; 85049; 85610; 85730; 88304; 93306; J0690; J1170; J1644; J1650; J2250; J2270; J2370; J2405; J2704; J3010; J8540

== ENCOUNTER 2020-02-08 12:50 | Outpatient (CLI) | payer OTHER, MEDICARE ==
[2020-02-08 15:19] LABS: Hemoglobin 9.1 g/dL (14.0-18.0); Mean Corpuscular Hemoglobin 25.4 PG (27.0-33.0); Mean Corpuscular Volume 84.6 fl (80.0-100.0); Mean Platelet Volume 10.7 fl (7.4-10.4); Platelet Count 290 10x3/uL (130-400); RBC Distribution Width 17.6 % (11.5-14.5); Red Blood Cell (RBC) Count 3.58 10x6/uL (4.40-5.80); White Blood Cell (WBC) Count 14.5 10x3/uL (4.5-11.0)
[2020-02-09 02:04] LABS: SARS-CoV-2 MS2 Positive; SARS-CoV-2 N Gene Negative; SARS-CoV-2 S Gene Negative; SARS-CoV-2 by NAA Not Detected (NotDetected); SARS-CoV-2 orf1ab Negative
== END 2020-02-08 12:51 | disposition home or self-care (01) ==
LOC: LABBT 12:50
PROVIDERS: ATTEND Orthopaedic Surgery
DX: Z01.812 Encounter for preprocedural laboratory examination (principal); I96 Gangrene, not elsewhere classified; Z20.828 Contact with and (suspected) exposure to other viral communicable diseases
CPT/HCPCS: 36415; 85027; 85652; 86140; 87635; U0003

== ENCOUNTER 2020-02-08 13:45 | Inpatient (IN) | payer MEDICARE, OTHER ==
[2020-02-12] MEDS ORDERED: Bupivacaine HCl 0.5%/Epinephrine 1:200,000/PF 30 ml Vial ONE (10:15)
[2020-02-12] MEDS ORDERED: PROPOFOL 200 MG/20 ML VIAL ONE (10:15)
[2020-02-12] MEDS ORDERED: Lidocaine 1% PF 5 ML VIAL ONE (10:15)
[2020-02-12] MEDS ORDERED: Calcium Chloride 1 GM/10 ML Abboject SYRINGE ONE (10:15)
[2020-02-12] MEDS ORDERED: ePHEDrine 50 MG/ML VIAL ONE (10:15)
[2020-02-12] MEDS ORDERED: Ondansetron PF 4 MG/2 ML Vial ONE (10:15)
[2020-02-12] MEDS ORDERED: PHENYLEPHRINE-NS 100 MCG/ML 10 ML SYRINGE ONE (10:15)
[2020-02-12] MEDS ORDERED: Fentanyl 100 MCG/2 ML VIAL ONE ×3 (13:38→14:51)
[2020-02-12] MEDS ORDERED: Midazolam HCl 2 mg/2 ml Vial ONE (13:38)
[2020-02-12] MEDS ORDERED: Phenylephrine 10 MG/ML VIAL ONE (15:21)
[2020-02-12] MEDS ORDERED: HYDROmorphone 2 MG/ML VIAL SLOW IVP PRN (15:45)
[2020-02-12] MEDS ORDERED: Promethazine HCl 25 MG/ML VIAL SLOW IVP PRN (15:45)
[2020-02-12] MEDS ORDERED: Promethazine HCl 25 MG/ML VIAL IM PRN ×2 (15:45→17:02)
[2020-02-12] MEDS ORDERED: Meperidine HCl/PF 25 MG/ML VIAL SLOW IVP PRN (15:45)
[2020-02-12] MEDS ORDERED: Morphine 2 MG/ML VIAL SLOW IVP PRN (17:02)
[2020-02-12] MEDS ORDERED: Milk Of Magnesia 30 ML UDCUP PO PRN (17:02)
[2020-02-12] MEDS ORDERED: traMADol HCl 50 MG TAB PO PRN (17:02)
[2020-02-12] MEDS ORDERED: Ondansetron PF 4 MG/2 ML Vial IVP PRN (17:02)
[2020-02-12] MEDS ORDERED: Bisacodyl 10 MG SUPP PR PRN (17:02)
[2020-02-12] MEDS ORDERED: Acetaminophen 325 MG TAB PO PRN (17:02)
[2020-02-12] MEDS ORDERED: Acetaminophen/Codeine 30-300mg Tablet PO PRN ×2 (17:02)
[2020-02-12] MEDS ORDERED: Fentanyl 100 MCG/2 ML VIAL SLOW IVP PRN (17:02)
[2020-02-12] MEDS ORDERED: Sodium Chloride 0.9% 100 ML IV SCH (17:15)
[2020-02-12] MEDS ORDERED: Communication Order-Pharmacy FS SCH (17:15)
[2020-02-12] MEDS ORDERED: Ketorolac Tromethamine 30 MG/ML VIAL ONE (17:26)
[2020-02-12] MEDS: Acetaminophen 500 MG TAB PO SCH (19:56)
[2020-02-12] MEDS: CEFAZOLIN 2 GM in Premix Bag 1 BAG IVPB SCH (21:20)
[2020-02-12] MEDS: Ketorolac Tromethamine 30 MG/ML VIAL IVP SCH (21:20)
[2020-02-12] MEDS: Gabapentin 100 MG CAP PO SCH (21:20)
[2020-02-12] MEDS: Aspirin 81 mg Enteric Coated Tablet PO SCH (21:20)
[2020-02-12] MEDS: Sodium Chloride 0.9% 1,000 ML IV SCH (21:24)
[2020-02-12 23:49] VITALS: BMI 34.2
[2020-02-13] MEDS: Acetaminophen 500 MG TAB PO SCH ×4 (00:16→16:51)
[2020-02-13] MEDS: Ketorolac Tromethamine 30 MG/ML VIAL IVP SCH ×4 (02:23→20:07)
[2020-02-13] MEDS: Sodium Chloride 0.9% 1,000 ML IV SCH ×2 (05:05→15:01)
[2020-02-13] MEDS: CEFAZOLIN 2 GM in Premix Bag 1 BAG IVPB SCH ×3 (05:18→21:15)
[2020-02-13 05:22] LABS: #Eosinphils 0.3 thou/uL (0.0-0.7); #Lymphocytes 1.5 thou/uL (1.20-3.40); #Monocytes 0.8 thou/uL (0.11-0.59); #Neutrophils 5.7 thou/uL (1.40-6.50); %Basophils 0.5 % (0.0-1.0); %Eosinophils 3.6 % (0.0-10.0); %Lymphocytes 18.3 % (21.0-51.0); %Monocytes 9.2 % (0.0-10.0); %Neutrophils 68.5 % (42.0-75.0); Hemoglobin 7.6 g/dL (14.0-18.0); Mean Corpuscular HGB CONC 31.3 g/dL (32.0-36.0); Mean Corpuscular Hemoglobin 25.8 pg (27.0-31.0); Mean Corpuscular Volume 82.6 fL (78.0-98.0); Mean Platelet Volume 8.3 fL (7.4-10.4); Platelet Count 213 thou/uL (130-400); Red Blood Cell (RBC) Count 2.96 mill/uL (4.70-6.10); White Blood Cell (WBC) Count 8.3 thou/uL (4.8-10.8)
[2020-02-13] MEDS: Ascorbic Acid 500 mg Chewable Tablet PO SCH (08:25)
[2020-02-13] MEDS: Multivitamin W/ Minerals 1 TAB PO SCH (08:25)
[2020-02-13] MEDS: Venlafaxine HCl XR 75 MG CAP PO SCH (08:26)
[2020-02-13] MEDS: Gabapentin 100 MG CAP PO SCH ×3 (08:26→20:06)
[2020-02-13] MEDS: Aspirin 81 mg Enteric Coated Tablet PO SCH ×2 (08:26→20:07)
[2020-02-13] MEDS: Tamsulosin HCl 0.4 MG CAP PO SCH (08:27)
[2020-02-13] MEDS: Zinc Sulfate 220 MG CAP PO SCH (08:27)
[2020-02-13] MEDS: Losartan 25 MG TAB PO SCH (10:26)
[2020-02-13] MEDS: Fluticasone Propionate Nasal Spray 16 gm Bottle NASAL SCH (10:27)
[2020-02-13] MEDS: Apixaban 5 MG TAB PO SCH (12:00)
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
[2020-02-13] MEDS: Enoxaparin Sodium 30 MG/0.3 ML SYRINGE SC SCH (21:18)
[2020-02-14] MEDS: Acetaminophen 500 MG TAB PO SCH ×4 (00:01→16:15)
[2020-02-14] MEDS: Sodium Chloride 0.9% 1,000 ML IV SCH ×3 (01:58→21:36)
[2020-02-14] MEDS: Ketorolac Tromethamine 30 MG/ML VIAL IVP SCH ×4 (03:40→20:27)
[2020-02-14] MEDS: CEFAZOLIN 2 GM in Premix Bag 1 BAG IVPB SCH (05:10)
[2020-02-14] MEDS: traMADol HCl 50 MG TAB PO PRN ×2 (05:10→20:28)
[2020-02-14 05:51] LABS: #Eosinphils 0.4 thou/uL (0.0-0.7); #Lymphocytes 1.9 thou/uL (1.20-3.40); #Monocytes 0.7 thou/uL (0.11-0.59); #Neutrophils 4.4 thou/uL (1.40-6.50); %Eosinophils 5.3 % (0.0-10.0); %Lymphocytes 25.6 % (21.0-51.0); %Monocytes 9.6 % (0.0-10.0); %Neutrophils 59.5 % (42.0-75.0); Hemoglobin 7.9 g/dL (14.0-18.0); Mean Corpuscular HGB CONC 31.2 g/dL (32.0-36.0); Mean Corpuscular Hemoglobin 25.8 pg (27.0-31.0); Mean Corpuscular Volume 82.9 fL (78.0-98.0); Mean Platelet Volume 8.7 fL (7.4-10.4); Platelet Count 221 thou/uL (130-400); RBC Distribution Width 16.9 % (11.5-14.5); Red Blood Cell (RBC) Count 3.07 mill/uL (4.70-6.10); White Blood Cell (WBC) Count 7.3 thou/uL (4.8-10.8)
[2020-02-14] MEDS ORDERED: Dextroamphetamine/Amphetamine [Adderall Xr 20 Mg Capsule] PO SCH (08:00)
[2020-02-14] MEDS: Losartan 25 MG TAB PO SCH (08:19)
[2020-02-14] MEDS: Venlafaxine HCl XR 75 MG CAP PO SCH (08:20)
[2020-02-14] MEDS: Enoxaparin Sodium 30 MG/0.3 ML SYRINGE SC SCH ×2 (08:20→20:28)
[2020-02-14] MEDS: Gabapentin 100 MG CAP PO SCH ×3 (08:20→20:28)
[2020-02-14] MEDS: Aspirin 81 mg Enteric Coated Tablet PO SCH ×2 (08:20→20:28)
[2020-02-14] MEDS: Zinc Sulfate 220 MG CAP PO SCH (08:21)
[2020-02-14] MEDS: Tamsulosin HCl 0.4 MG CAP PO SCH (08:21)
[2020-02-14] MEDS: Ascorbic Acid 500 mg Chewable Tablet PO SCH (08:21)
[2020-02-14] MEDS: Multivitamin W/ Minerals 1 TAB PO SCH (08:21)
[2020-02-14] MEDS: Fluticasone Propionate Nasal Spray 16 gm Bottle NASAL SCH (08:23)
--- NOTE | 2020-02-14 11:41 | PRG ---
DATE OF SERVICE: 02/14/2020 SUBJECTIVE: The patient is doing well. His pain is about 1/10. In regard to his recent BKA, he does have a stump [employer] systems on, it does not have much pain in that left lower extremity. Right lower extremity, toes are still pretty dark black. At least the large toe tissue is a little bit pliable as are the 4th and 5th digits. The 2nd and 3rd digits are pretty stiff tissue haas on the tips and blackened. He also has, over the plantar-sided 4th and 5th metatarsals, some eschar with what appears to be a blood-type blister. OBJECTIVE/OBSERVATION: VITAL SIGNS: Stable, afebrile. GENERAL: Speech is clear, fluent. Oriented x3. EXTREMITIES: Left lower extremity stump airborne mission systems in place. Dressing dry. Right lower extremity as above regarding color of the digits but as for sensations, he can feel some sensations to both the mid plantar area of the foot on the 4th and 5th metatarsal distally. Really no sensations. PROCEDURE: I prepped the area extensively with Betadine. Swab sticks were used. I used a suture removal or kit to unroof the blister. I was unable to remove the eschar, it was pretty well adhered. The patient tolerated the procedure well and did not really feel much of anything that I removed. I applied a Vaseline gauze over the eschar and the wound site, wrapped it with some sterile 4x4s and Kerlix. Again, patient tolerated well. ASSESSMENT: 1. Progressing well. 2. Removal of blister to right plantar surface. PLAN: Again, areas are dressed, I would like to keep him in one more day. We will start him on his 14 days of Bactrim DS to go home on, pain medications tomorrow as needed. Also have wound care work on that right lower extremity prior to his discharge and maybe give them some ideas to keep the tissues of that foot pliable and soft, and hopefully they will pink up in the coming days. Job ID: [id number]
[2020-02-14] MEDS: Sulfameth/Trimethoprim DS 800-160mg TAB PO SCH (20:28)
[2020-02-15] MEDS: Acetaminophen 500 MG TAB PO SCH ×3 (00:22→11:34)
[2020-02-15] MEDS: Ketorolac Tromethamine 30 MG/ML VIAL IVP SCH ×2 (02:52→09:41)
[2020-02-15] MEDS ORDERED: Dextroamphetamine/Amphetamine [Adderall Xr 20 Mg Capsule] PO SCH (06:00)
[2020-02-15] MEDS: Aspirin 81 mg Enteric Coated Tablet PO SCH (09:38)
[2020-02-15] MEDS: Ascorbic Acid 500 mg Chewable Tablet PO SCH (09:38)
[2020-02-15] MEDS: Tamsulosin HCl 0.4 MG CAP PO SCH (09:39)
[2020-02-15] MEDS: Zinc Sulfate 220 MG CAP PO SCH (09:39)
[2020-02-15] MEDS: Sulfameth/Trimethoprim DS 800-160mg TAB PO SCH (09:39)
[2020-02-15] MEDS: Venlafaxine HCl XR 75 MG CAP PO SCH (09:39)
[2020-02-15] MEDS: Gabapentin 100 MG CAP PO SCH (09:39)
[2020-02-15] MEDS: Losartan 25 MG TAB PO SCH (09:39)
[2020-02-15] MEDS: Enoxaparin Sodium 30 MG/0.3 ML SYRINGE SC SCH (09:41)
[2020-02-15] MEDS: Sodium Chloride 0.9% 1,000 ML IV SCH (09:41)
[2020-02-15] MEDS: Fluticasone Propionate Nasal Spray 16 gm Bottle NASAL SCH (09:41)
[2020-02-15] MEDS: Multivitamin W/ Minerals 1 TAB PO SCH (09:42)
[2020-02-15 12:03] VITALS: BP 145/91; TEMP 98.6
[2020-02-15] MEDS ORDERED: Gabapentin 300 MG CAP PO SCH (21:00)
[2020-02-15] MEDS ORDERED: Apixaban 5 MG TAB PO SCH (21:00)
== END 2020-02-15 15:03 | disposition home or self-care (01) | DRG 240 ==
LOC: SURG A 02-12 12:08 → EDSTATUS 02-12 13:45 → SURG A 02-12 18:08
PROVIDERS: ADMIT Orthopaedic Surgery; ATTEND Orthopaedic Surgery
PROC: 0Y6J0Z1 Detachment at Left Lower Leg, High, Open Approach (ICD-10-PCS; principal; 2020-02-12)
DX: E11.52 Type 2 diabetes mellitus with diabetic peripheral angiopathy with gangrene (principal); I70.262 Atherosclerosis of native arteries of extremities with gangrene, left leg; Z20.828 Contact with and (suspected) exposure to other viral communicable diseases; L97.519 Non-pressure chronic ulcer of other part of right foot with unspecified severity; I10 Essential (primary) hypertension; G47.33 Obstructive sleep apnea (adult) (pediatric); G47.419 Narcolepsy without cataplexy; J30.2 Other seasonal allergic rhinitis; E66.01 Morbid (severe) obesity due to excess calories; E11.621 Type 2 diabetes mellitus with foot ulcer; F17.210 Nicotine dependence, cigarettes, uncomplicated; F41.9 Anxiety disorder, unspecified; F32.9 Major depressive disorder, single episode, unspecified; N40.0 Benign prostatic hyperplasia without lower urinary tract symptoms; F43.10 Post-traumatic stress disorder, unspecified; Z99.89 Dependence on other enabling machines and devices; Z79.899 Other long term (current) drug therapy; Z79.82 Long term (current) use of aspirin; Z68.34 Body mass index [BMI] 34.0-34.9, adult
CPT/HCPCS: 36415; 36416; 85025; 85652; 86140; 88307; J0690; J1650; J1885; J2250; J2370; J2405; J2704; J3010; J3490

== ENCOUNTER 2020-02-21 16:31 | Emergency (ER) | payer MEDICARE, OTHER ==
[~2020-02-21 16:31] MED LIST changes: -Dexamethasone 20 MG/5 ML VIAL ONE; -EPHEDRINE 25 MG/5 ML SYRINGE ONE; -Glycopyrrolate 0.2 MG/ML 5 ML SYRINGE ONE; -Lidocaine 1% PF 5 ML VIAL ONE; -Ondansetron PF 4 MG/2 ML Vial ONE; -PHENYLEPHRINE-NS 100 MCG/ML 10 ML SYRINGE ONE; -PROPOFOL 200 MG/20 ML VIAL ONE; -Rocuronium Bromide 10 MG/ML (10ML VIAL) ONE; -Succinylcholine Chloride 20 MG/ML 10 ml SYRINGE FS ONE
[2020-02-21] MEDS ORDERED: Morphine 4 MG/ML VIAL ONE (17:42)
[2020-02-21] MEDS ORDERED: Ondansetron PF 4 MG/2 ML Vial ONE (17:42)
--- NOTE | 2020-02-21 18:33 | ULT ---
RIGHT LOWER EXTREMITY VENOUS DOPPLER: 02/21/20 PROVIDED CLINICAL HISTORY: Pain. FINDINGS: Tate scale and color Doppler sonography with spectral analysis was performed of the right common femo ral, femoral, popliteal, posterior tibial, greater saphenous and profunda femoral veins, demonstratin g a normal sonographic appearance to each. IMPRESSION: No sonographic evidence for right lower extremity deep venous thrombosis. POS: MARYBETH
[2020-02-21 18:39] LABS: #Eosinphils 0.4 thou/uL (0.0-0.7); #Lymphocytes 2.2 thou/uL (1.20-3.40); #Monocytes 0.9 thou/uL (0.11-0.59); #Neutrophils 4.7 thou/uL (1.40-6.50); %Basophils 0.2 % (0.0-1.0); %Eosinophils 4.7 % (0.0-10.0); %Lymphocytes 26.7 % (21.0-51.0); %Monocytes 10.6 % (0.0-10.0); %Neutrophils 57.8 % (42.0-75.0); Hemoglobin 8.9 g/dL (14.0-18.0); Mean Corpuscular HGB CONC 31.9 g/dL (32.0-36.0); Mean Corpuscular Volume 81.6 fL (78.0-98.0); Mean Platelet Volume 8.3 fL (7.4-10.4); Platelet Count 277 thou/uL (130-400); RBC Distribution Width 17.4 % (11.5-14.5); Red Blood Cell (RBC) Count 3.43 mill/uL (4.70-6.10); White Blood Cell (WBC) Count 8.1 thou/uL (4.8-10.8)
[2020-02-21 19:00] LABS: ALT (SGPT) 17 U/L (8-55); AST (SGOT) 14 U/L (5-34); Alkaline Phosphatase 109 U/L (40-110); Anion Gap 14 mmol/L (10-20); BUN (Urea Nitrogen) 23 mg/dL (8.4-25.7); Bilirubin, Total 0.2 mg/dL (0.2-1.2); CK (CPK) 29 U/L (30-200); Calc. Creatinine Clearance 0 mL/min (70-130); Calcium 8.4 mg/dL (7.8-10.44); Carbon Dioxide 23 mmol/L (23-31); Chloride 105 mmol/L (98-107); Glucose 102 mg/dL (80-115); Potassium 4.3 mmol/L (3.5-5.1); Sodium 138 mmol/L (136-145)
--- NOTE | 2020-02-21 21:58 | CT ---
CT ANGIOGRAM ABDOMEN AND PELVIS AND BILATERAL LOWER EXTREMITIES WITH IV CONTRAST AND 3D MIP RECONSTRU CTIONS: 02/21/20 PROVIDED CLINICAL HISTORY: Right leg pain. History of blood clots. FINDINGS: Comparison is made with the examination dated 01/13/20. The visualized lung bases are free of signifi cant opacity. There is a peripheral wedge shaped area of diminished attenuation involving the posteri or aspects of the spleen and similar findings at the cranial aspects of the spleen anteriorly. These findings are new with respect to the CT chest, abdomen and pelvis 11/29/19. There is a 7 mm nonobstruc ting left UPJ calculus. The solid abdominal organs demonstrate an otherwise unchanged CT appearance. Enlarged retroperitoneal lymph node is redemonstrated. Changes of gastric banding are again noted. There is a nonobstructing 1 cm calculus involving the mid portion of the right kidney. There is no bowel dilatation, inflammato ry fat stranding, free fluid, or free air apparent. The abdominal aorta is nonaneurysmal. The mesenteric and renal vessels appear patent. The common, external and internal iliac arteries demonstrate no significant stenosis. The common and external iliac arteries are diffusely ectatic. There is an ectatic appearance to bilateral superficial femoral arteries. The superficial femoral and profunda femoral arteries demonstrate no significant stenosis. There is focal eccentric mural plaque/thrombus at the medial aspect of the right popliteal artery at the level of the femoral condyles. This produces stenosis of approximately 50%. This area was not opa cified on the prior examination due to thrombus proximal to it and thus the chronicity of this findin g is not certain. There is minimal eccentric mural plaque/thrombus involving the proximal left poplit eal artery. Both popliteal arteries are ectatic. There is opacification of the anterior tibial and peroneal arteries to the level of the distal stump on the left. The posterior tibial artery is occluded proximally. On the right, there is normal opaci fication of the anterior tibial and posterior tibial arteries to the level of the foot. The peroneal artery is not opacified. IMPRESSION: 1. 50% stenosis involving the right popliteal artery as described. 2. Nonobstructing 7 mm left UPJ calculus and nonobstructing 1 cm right renal calculus. 3. Development of peripheral areas of wedge shaped hypodensity involving the spleen suspicious f or splenic infarcts. POS: MARYBETH
== END 2020-02-21 20:30 | disposition home or self-care (01) ==
LOC: ERS 16:31
DX: R22.41 Localized swelling, mass and lump, right lower limb (principal); I10 Essential (primary) hypertension; E11.9 Type 2 diabetes mellitus without complications; Z86.718 Personal history of other venous thrombosis and embolism; Z79.82 Long term (current) use of aspirin; Z79.84 Long term (current) use of oral hypoglycemic drugs; Z79.899 Other long term (current) drug therapy
CPT/HCPCS: 36415; 75635; 80053; 82550; 83605; 85025; 96374; 96375; J2270; J2405; Q9967

== ENCOUNTER 2020-04-13 16:42 | Emergency (ER) | payer MEDICARE, OTHER ==
--- NOTE | 2020-04-13 18:25 | ULT ---
Right lower extremity venous Doppler ultrasound 04/13/2020 COMPARISON: None HISTORY: Edema, swelling, assess for DVT TECHNIQUE: Multiplanar grayscale sonographic imaging venous structures right lower extremity obtained with color flow and spectral analysis FINDINGS: Right common femoral vein, greater saphenous vein, profunda femoral vein, femoral vein, pop liteal vein, and posterior tibial vein are patent. Normal blood flow, augmentation, and compression within the deep venous system. No evidence for DVT. IMPRESSION: No evidence for deep venous thrombosis of the right lower extremity.
== END 2020-04-13 21:45 | disposition home or self-care (01) ==
LOC: ERS 16:42
DX: L97.513 Non-pressure chronic ulcer of other part of right foot with necrosis of muscle (principal); I10 Essential (primary) hypertension; Z86.16 Personal history of COVID-19; Z86.718 Personal history of other venous thrombosis and embolism; F17.210 Nicotine dependence, cigarettes, uncomplicated

== ENCOUNTER 2020-07-02 08:09 | Outpatient (CLI) | payer MEDICARE, OTHER ==
[2020-07-02 09:52] LABS: Hemoglobin 10.2 g/dL (13.5-17.5); Mean Corpuscular HGB CONC 28.8 g/dL (32.0-36.0); Mean Corpuscular Hemoglobin 19.9 pg (27.0-33.0); Platelet Count 245 10x3/uL (150-450); RBC Distribution Width 20.8 % (11.5-14.5); Red Blood Cell (RBC) Count 5.13 10x6/uL (4.32-5.72)
[2020-07-02 10:38] LABS: Anion Gap 14 mmol/L (10-20); BUN (Urea Nitrogen) 16 mg/dL (8.4-25.7); Calc. Creatinine Clearance 0 mL/min (70-130); Carbon Dioxide 22 mmol/L (23-31); Chloride 107 mmol/L (98-107); Glucose 129 mg/dL (80-115); Potassium 4.2 mmol/L (3.5-5.1); Sodium 139 mmol/L (136-145)
[2020-07-02 11:46] LABS: Calcium 8.9 mg/dL (7.8-10.44)
[2020-07-02 20:40] LABS: SARS-CoV-2 PCR by NAA Not Detected (NotDetected)
== END 2020-07-02 08:10 | disposition home or self-care (01) ==
LOC: LABBT 08:09
PROVIDERS: ATTEND Thoracic Surgery (Cardiothoracic Vascular Surgery)
DX: Z01.818 Encounter for other preprocedural examination (principal); Z20.822 Contact with and (suspected) exposure to COVID-19; I73.9 Peripheral vascular disease, unspecified
CPT/HCPCS: 80048; 85027; U0003; U0005; 87635; 93005; 93010

== ENCOUNTER 2020-07-05 05:36 | Day surgery (SDC) | payer OTHER ==
[2020-07-03 13:47] VITALS: BMI 38.8
[2020-07-05] MEDS ORDERED: Fentanyl 100 MCG/2 ML VIAL ONE ×2 (06:29→09:05)
[2020-07-05] MEDS ORDERED: PHENYLEPHRINE-NS 100 MCG/ML 10 ML SYRINGE ONE (07:24)
[2020-07-05] MEDS ORDERED: Lidocaine 1% PF 5 ML VIAL ONE (07:24)
[2020-07-05] MEDS ORDERED: PROPOFOL 200 MG/20 ML VIAL ONE (07:24)
== END 2020-07-05 10:28 | disposition home or self-care (01) ==
LOC: SDC 05:36
PROVIDERS: ATTEND Thoracic Surgery (Cardiothoracic Vascular Surgery)
PROC: 0Y6Q0Z3 Detachment at Left 1st Toe, Low, Open Approach (ICD-10-PCS; principal; 2020-07-05)
PROC: 0Y6R0Z3 Detachment at Right 2nd Toe, Low, Open Approach (ICD-10-PCS; principal; 2020-07-05)
PROC: 0Y6T0Z3 Detachment at Right 3rd Toe, Low, Open Approach (ICD-10-PCS; principal; 2020-07-05)
DX: I74.3 Embolism and thrombosis of arteries of the lower extremities (principal); F17.210 Nicotine dependence, cigarettes, uncomplicated; Z86.16 Personal history of COVID-19; Z79.01 Long term (current) use of anticoagulants; Z79.82 Long term (current) use of aspirin; Z79.899 Other long term (current) drug therapy; Z89.512 Acquired absence of left leg below knee
CPT/HCPCS: J0690; J2704; J3010

== ENCOUNTER 2021-03-22 14:46 | Inpatient (IN) | payer MEDICARE, OTHER ==
[2021-03-22 15:32] LABS: #Basophils 0.1 thou/uL (0.0-0.2); #Eosinphils 0.3 thou/uL (0.0-0.7); #Monocytes 1.6 thou/uL (0.11-0.59); #Neutrophils 11.9 thou/uL (1.40-6.50); %Basophils 0.4 % (0.0-1.0); %Eosinophils 1.9 % (0.0-10.0); %Lymphocytes 12.5 % (21.0-51.0); %Neutrophils 75.2 % (42.0-75.0); Hemoglobin 7.5 g/dL (14.0-18.0); Mean Corpuscular HGB CONC 27.8 g/dL (32.0-36.0); Mean Corpuscular Hemoglobin 15.2 pg (27.0-31.0); Mean Corpuscular Volume 54.8 fL (78.0-98.0); RBC Distribution Width 21.6 % (11.5-14.5); Red Blood Cell (RBC) Count 4.91 mill/uL (4.70-6.10); Reflex for Review?? YES; White Blood Cell (WBC) Count 15.9 thou/uL (4.8-10.8)
[2021-03-22] MEDS ORDERED: Cefepime 2 GM VIAL ONE (15:33)
[2021-03-22 15:40] LABS: Anisocytosis SLIGHT = 6-15 cells (100X) (0-5/hpf); Hypochromia SLIGHT = 6-15 cells (100X) (0-5/hpf); MDiff Complete? YES; Mean Platelet Volume 7.3 fL (7.4-10.4); Microcytosis MODERATE=15-30 cells (100X) (0-5/hpf); Ovalocytes MODERATE= 6-15 cells (100X) (0-1/hpf); Platelet Count 239 thou/uL (130-400); Platelet Morphology Comment Appears Adequate; Polychromasia SLIGHT = 2-3 cells (100X) (0-2/hpf); Target Cells SLIGHT = 2-5 cells (100X) (0-1/hpf)
[2021-03-22 15:44] LABS: ALT (SGPT) 21 U/L (8-55); AST (SGOT) 18 U/L (5-34); Albumin 3.8 g/dL (3.4-4.8); Alkaline Phosphatase 97 U/L (40-110); Anion Gap 14 mmol/L (10-20); BUN (Urea Nitrogen) 17 mg/dL (8.4-25.7); Bilirubin, Total 0.4 mg/dL (0.2-1.2); Calc. Creatinine Clearance 0 mL/min (70-130); Calcium 8.7 mg/dL (7.8-10.44); Carbon Dioxide 21 mmol/L (23-31); Chloride 101 mmol/L (98-107); Globulin 3.9 g/dL (2.4-3.5); Glucose 144 mg/dL (80-115); Potassium 3.7 mmol/L (3.5-5.1); Protein, Total 7.7 g/dL (5.8-8.1); Sodium 132 mmol/L (136-145)
[2021-03-22 16:44] LABS: INR-International Normal Ratio 1.2; PTT 30.5 sec (22.9-36.1); Prothrombin Time 15.8 sec (12.0-14.7)
[2021-03-22 16:47] LABS: Iron 14 ug/dL (65-175); Iron Binding Capacity, Total 466 mcg/dL (261-462)
[2021-03-22] MEDS ORDERED: Iron Sucrose Complex 200 MG in Sodium Chloride 0.9% 100 ML IVPB SCH (18:18)
[2021-03-22] MEDS ORDERED: Dextrose 5% in Water 1,000 ML IV PRN (18:18)
[2021-03-22] MEDS ORDERED: Bisacodyl 5 MG TAB PO PRN (18:18)
[2021-03-22] MEDS ORDERED: Dextrose 50% Abboject 50 ML SYRINGE SLOW IVP PRN (18:18)
[2021-03-22] MEDS ORDERED: Ondansetron PF 4 MG/2 ML Vial IVP PRN (18:18)
[2021-03-22 18:23] LABS: Lactic Acid 1.3 mmol/L (0.5-2.2)
[2021-03-22] MEDS ORDERED: Iron, Sodium Ferric Gluconate 250 MG in Sodium Chloride 0.9% 100 ML IVPB SCH (19:00)
[2021-03-22] MEDS: Nicotine 21 MG PATCH TD SCH (19:13)
[2021-03-22 20:06] VITALS: BMI 40.2
[2021-03-22] MEDS: Acetaminophen 325 MG TAB PO PRN (20:13)
[2021-03-22] MEDS: Gabapentin 300 MG CAP PO SCH (20:13)
[2021-03-22] MEDS ORDERED: Apixaban 5 MG TAB PO SCH (21:00)
[2021-03-22 21:04] LABS: SARS-CoV-2 NAA Rapid Test Not Detected (NotDetected)
[2021-03-22] MEDS: HumaLOG 300 UNITS/3 ML VIAL SC PRN (21:35)
[2021-03-23] MEDS: Cefepime 2 GM in Sodium Chloride 0.9% 100 ML IVPB SCH ×2 (03:45→15:18)
[2021-03-23] MEDS: HumaLOG 300 UNITS/3 ML VIAL SC PRN ×3 (05:46→20:57)
[2021-03-23 06:58] LABS: Anisocytosis SLIGHT = 6-15 cells (100X) (0-5/hpf); Band 3 % (5-11); Elliptocytes SLIGHT = 2-5 cells (100X) (0-1/hpf); Eosinophils 4 % (0-10); Hemoglobin 6.5 g/dL (14.0-18.0); Hypochromia MODERATE=16-30 cells (100X) (0-5/hpf); Lymphocytes 14 % (21-51); MDiff Complete? YES; Mean Corpuscular Volume 55.7 fL (78.0-98.0); Mean Platelet Volume 7.1 fL (7.4-10.4); Microcytosis MODERATE=15-30 cells (100X) (0-5/hpf); Monocytes 5 % (0-10); Neutrophil 74 % (42-75); Nucleated RBC 1 % (0); Platelet Count 204 thou/uL (130-400); Polychromasia SLIGHT = 2-3 cells (100X) (0-2/hpf); RBC Distribution Width 21.6 % (11.5-14.5); Red Blood Cell (RBC) Count 4.34 mill/uL (4.70-6.10); White Blood Cell (WBC) Count 13.7 thou/uL (4.8-10.8)
[2021-03-23 07:02] LABS: Anion Gap 12 mmol/L (10-20); BUN (Urea Nitrogen) 14 mg/dL (8.4-25.7); Calc. Creatinine Clearance 180 mL/min (70-130); Calcium 8.1 mg/dL (7.8-10.44); Carbon Dioxide 22 mmol/L (23-31); Chloride 104 mmol/L (98-107); Glucose 187 mg/dL (80-115); Potassium 3.6 mmol/L (3.5-5.1); Sodium 134 mmol/L (136-145)
[2021-03-23] MEDS: Ferrous Sulfate 325 MG TAB PO SCH (08:37)
[2021-03-23] MEDS: Venlafaxine HCl XR 75 MG CAP PO SCH (08:37)
[2021-03-23] MEDS: Fluticasone Propionate Nasal Spray 16 gm Bottle NASAL SCH (08:37)
[2021-03-23] MEDS: Acetaminophen/Codeine 30-300mg Tablet PO PRN ×4 (08:37→20:56)
[2021-03-23] MEDS: Losartan 25 MG TAB PO SCH (08:38)
[2021-03-23] MEDS: Gabapentin 300 MG CAP PO SCH ×2 (08:38→20:57)
[2021-03-23] MEDS: Tamsulosin HCl 0.4 MG CAP PO SCH (08:38)
[2021-03-23] MEDS: Aspirin 81 mg Enteric Coated Tablet PO SCH (12:50)
[2021-03-23 13:58] LABS: Bilirubin Negative (Negative); Blood, Urine 3+ (Negative); Clarity Turbid (Clear); Glucose, Urine (Dipstick) Normal (Negative); Ketone, Urine Negative (Negative); Leukocyte 500 Leu/uL (Negative); Nitrite Negative (Negative); Protein, Urine (Dipstick) 50 mg/dL (Neg-Trace); Specific Gravity, Urine 1.017 (1.002-1.036); Squamous Epithelial None Seen HPF (0-3); Urobilinogen Normal mg/dL (Less than 2); pH, Urine 6.5 (5.0-9.0)
[2021-03-23 14:11] LABS: Bacteria/HPF None Seen HPF (None Seen); WBC/HPF 21-50 HPF (0-3)
[2021-03-23 14:12] LABS: Urine Culture Reflex Yes Yes
[2021-03-23] MEDS: Nicotine 21 MG PATCH TD SCH (18:26)
[2021-03-24] MEDS: Cefepime 2 GM in Sodium Chloride 0.9% 100 ML IVPB SCH ×2 (04:01→15:45)
[2021-03-24] MEDS: Acetaminophen/Codeine 30-300mg Tablet PO PRN ×4 (06:37→20:40)
[2021-03-24 07:06] LABS: Hemoglobin 7.5 g/dL (14.0-18.0); Mean Corpuscular HGB CONC 27.8 g/dL (32.0-36.0); Mean Corpuscular Hemoglobin 15.8 pg (27.0-31.0); Mean Corpuscular Volume 56.8 fL (78.0-98.0); Mean Platelet Volume 6.8 fL (7.4-10.4); Platelet Count 233 thou/uL (130-400); RBC Distribution Width 24.7 % (11.5-14.5); Red Blood Cell (RBC) Count 4.75 mill/uL (4.70-6.10); White Blood Cell (WBC) Count 14.7 thou/uL (4.8-10.8)
[2021-03-24 07:07] LABS: #Basophils 0.1 thou/uL (0.0-0.2); #Eosinphils 0.3 thou/uL (0.0-0.7); #Lymphocytes 2.6 thou/uL (1.20-3.40); #Monocytes 1.6 thou/uL (0.11-0.59); #Neutrophils 10.2 thou/uL (1.40-6.50); %Basophils 0.4 % (0.0-1.0); %Eosinophils 2.2 % (0.0-10.0); %Lymphocytes 17.4 % (21.0-51.0); %Monocytes 11.1 % (0.0-10.0); %Neutrophils 68.9 % (42.0-75.0)
[2021-03-24 07:16] LABS: Anion Gap 11 mmol/L (10-20); BUN (Urea Nitrogen) 11 mg/dL (8.4-25.7); Calc. Creatinine Clearance 176 mL/min (70-130); Calcium 8.6 mg/dL (7.8-10.44); Carbon Dioxide 24 mmol/L (23-31); Chloride 104 mmol/L (98-107); Glucose 128 mg/dL (80-115); Potassium 3.7 mmol/L (3.5-5.1); Sodium 135 mmol/L (136-145)
[2021-03-24] MEDS: Aspirin 81 mg Enteric Coated Tablet PO SCH (08:02)
[2021-03-24] MEDS: Losartan 25 MG TAB PO SCH (08:37)
[2021-03-24] MEDS: Ferrous Sulfate 325 MG TAB PO SCH (08:37)
[2021-03-24] MEDS: Venlafaxine HCl XR 75 MG CAP PO SCH (08:37)
[2021-03-24] MEDS: Fluticasone Propionate Nasal Spray 16 gm Bottle NASAL SCH (08:38)
[2021-03-24] MEDS: Gabapentin 300 MG CAP PO SCH ×2 (08:38→20:41)
[2021-03-24] MEDS: Tamsulosin HCl 0.4 MG CAP PO SCH (08:38)
[2021-03-24 12:05] LABS: Hypochromia SLIGHT = 6-15 cells (100X) (0-5/hpf); MDiff Complete? YES; Microcytosis MARKED = >30 cells (100X) (0-5/hpf); Ovalocytes SLIGHT = 2-5 cells (100X) (0-1/hpf); Polychromasia MODERATE = 3-4 cells (100X) (0-2/hpf)
[2021-03-24] MEDS ORDERED: GoLYTELY 4,000 ml Bottle PO SCH ×2 (13:00→20:00)
[2021-03-24] MEDS: Nicotine 21 MG PATCH TD SCH (17:35)
[2021-03-25] MEDS ORDERED: Morphine 4 MG/ML VIAL SLOW IVP SCH ×2 (02:30→23:45)
[2021-03-25] MEDS: Acetaminophen/Codeine 30-300mg Tablet PO PRN ×2 (03:55→23:30)
[2021-03-25] MEDS: Acetaminophen 325 MG TAB PO PRN ×3 (03:56→23:30)
[2021-03-25] MEDS: Cefepime 2 GM in Sodium Chloride 0.9% 100 ML IVPB SCH ×2 (03:56→17:05)
[2021-03-25 04:55] LABS: #Eosinphils 0.3 thou/uL (0.0-0.7); #Lymphocytes 1.9 thou/uL (1.20-3.40); #Monocytes 1.2 thou/uL (0.11-0.59); #Neutrophils 7.4 thou/uL (1.40-6.50); %Basophils 0.3 % (0.0-1.0); %Eosinophils 2.9 % (0.0-10.0); %Lymphocytes 17.5 % (21.0-51.0); %Monocytes 11.1 % (0.0-10.0); %Neutrophils 68.2 % (42.0-75.0); Hemoglobin 7.3 g/dL (14.0-18.0); Mean Corpuscular HGB CONC 27.9 g/dL (32.0-36.0); Mean Corpuscular Hemoglobin 15.9 pg (27.0-31.0); Mean Corpuscular Volume 57.1 fL (78.0-98.0); Mean Platelet Volume 6.7 fL (7.4-10.4); Platelet Count 222 thou/uL (130-400); RBC Distribution Width 24.7 % (11.5-14.5); Red Blood Cell (RBC) Count 4.62 mill/uL (4.70-6.10); White Blood Cell (WBC) Count 10.8 thou/uL (4.8-10.8)
[2021-03-25 05:14] LABS: Anion Gap 11 mmol/L (10-20); BUN (Urea Nitrogen) 12 mg/dL (8.4-25.7); Calc. Creatinine Clearance 191 mL/min (70-130); Calcium 8.5 mg/dL (7.8-10.44); Carbon Dioxide 27 mmol/L (23-31); Chloride 103 mmol/L (98-107); Glucose 102 mg/dL (80-115); Potassium 3.8 mmol/L (3.5-5.1); Sodium 137 mmol/L (136-145)
[2021-03-25] MEDS: Morphine 4 MG/ML VIAL SLOW IVP PRN ×2 (05:28→13:04)
[2021-03-25] MEDS ORDERED: Lidocaine 1% PF 5 ML VIAL ONE (10:06)
[2021-03-25] MEDS ORDERED: PROPOFOL 200 MG/20 ML VIAL ONE (10:06)
[2021-03-25] MEDS: Ferrous Sulfate 325 MG TAB PO SCH (13:07)
[2021-03-25] MEDS: Losartan 25 MG TAB PO SCH (13:07)
[2021-03-25] MEDS: Aspirin 81 mg Enteric Coated Tablet PO SCH (13:07)
[2021-03-25] MEDS: Venlafaxine HCl XR 75 MG CAP PO SCH (13:07)
[2021-03-25] MEDS: Gabapentin 300 MG CAP PO SCH ×2 (13:08→21:22)
[2021-03-25] MEDS: Tamsulosin HCl 0.4 MG CAP PO SCH (13:08)
[2021-03-25] MEDS: Fluticasone Propionate Nasal Spray 16 gm Bottle NASAL SCH (13:09)
[2021-03-25] MEDS ORDERED: GoLYTELY 4,000 ml Bottle PO SCH (18:00)
[2021-03-25] MEDS: Nicotine 21 MG PATCH TD SCH (21:22)
[2021-03-26] MEDS: Cefepime 2 GM in Sodium Chloride 0.9% 100 ML IVPB SCH ×2 (04:00→16:35)
[2021-03-26 06:49] LABS: Hemoglobin 7.5 g/dL (14.0-18.0); Platelet Count 229 thou/uL (130-400)
[2021-03-26] MEDS ORDERED: Lidocaine 1% PF 5 ML VIAL ONE (10:14)
[2021-03-26] MEDS ORDERED: PROPOFOL 200 MG/20 ML VIAL ONE (10:14)
[2021-03-26] MEDS: Venlafaxine HCl XR 75 MG CAP PO SCH (12:45)
[2021-03-26] MEDS: Aspirin 81 mg Enteric Coated Tablet PO SCH (12:45)
[2021-03-26] MEDS: Tamsulosin HCl 0.4 MG CAP PO SCH (12:45)
[2021-03-26] MEDS: Losartan 25 MG TAB PO SCH (12:45)
[2021-03-26] MEDS: Ferrous Sulfate 325 MG TAB PO SCH (12:45)
[2021-03-26] MEDS: Gabapentin 300 MG CAP PO SCH (12:46)
[2021-03-26] MEDS: Fluticasone Propionate Nasal Spray 16 gm Bottle NASAL SCH ×2 (12:46→12:50)
[2021-03-26 16:25] VITALS: BP 139/78; TEMP 99
[2021-03-26] MEDS: Nicotine 21 MG PATCH TD SCH (19:23)
[2021-03-26] MEDS: Non-Formulary Item 1 EACH (Dextroamphetamine/Amphetamine [Adderall Xr 20 Mg Capsule] 20 M PO SCH (19:26)
== END 2021-03-26 19:47 | disposition home or self-care (01) | DRG 872 ==
LOC: ERS 14:46 → SJJU 16:45
PROVIDERS: ADMIT Internal Medicine; ATTEND Internal Medicine
PROC: 30233N1 Transfusion of Nonautologous Red Blood Cells into Peripheral Vein, Percutaneous Approach (ICD-10-PCS; principal; 2021-03-23)
PROC: 0DJD8ZZ Inspection of Lower Intestinal Tract, Via Natural or Artificial Opening Endoscopic (ICD-10-PCS; 2021-03-25)
PROC: 0DB98ZX Excision of Duodenum, Via Natural or Artificial Opening Endoscopic, Diagnostic (ICD-10-PCS; 2021-03-25)
DX: A41.9 Sepsis, unspecified organism (principal); Z68.41 Body mass index [BMI] 40.0-44.9, adult; E87.1 Hypo-osmolality and hyponatremia; N45.3 Epididymo-orchitis; Z20.822 Contact with and (suspected) exposure to COVID-19; I10 Essential (primary) hypertension; E11.69 Type 2 diabetes mellitus with other specified complication; D50.9 Iron deficiency anemia, unspecified; E66.9 Obesity, unspecified; K44.9 Diaphragmatic hernia without obstruction or gangrene; K57.30 Diverticulosis of large intestine without perforation or abscess without bleeding; F41.9 Anxiety disorder, unspecified; N21.0 Calculus in bladder; Z87.891 Personal history of nicotine dependence; Z86.718 Personal history of other venous thrombosis and embolism; Z79.82 Long term (current) use of aspirin; Z79.899 Other long term (current) drug therapy; Z79.01 Long term (current) use of anticoagulants
CPT/HCPCS: 36415; 36416; 36430; 74177; 76870; 80048; 80053; 81001; 82607; 82728; 82746; 83540; 83550; 83605; 85014; 85018; 85025; 85046; 85049; 85060; 85610; 85730; 86850; 86900; 86901; 87040; 87086; 88305; 93005; 93976; J0692; J1815; J2270; J2704; J2916; J3490; P9016; U0002

== ENCOUNTER 2021-08-14 10:00 | Outpatient (CLI) | payer OTHER ==
[2021-08-14 12:28] LABS: Hemoglobin 14.3 g/dL (13.5-17.5); Mean Corpuscular HGB CONC 32.1 g/dL (32.0-36.0); Mean Corpuscular Volume 77.7 fl (81.2-95.1); RBC Distribution Width 22.1 % (11.5-14.5); Red Blood Cell (RBC) Count 5.73 10x6/uL (4.32-5.72); White Blood Cell (WBC) Count 8.4 10x3/uL (3.5-10.5)
[2021-08-14 12:29] LABS: PTT 25.6 sec (22.0-33.0); Platelet Count 243 10x3/uL (150-450); Prothrombin Time 10.5 sec (9.5-12.1)
[2021-08-14 12:38] LABS: Anion Gap 17 mmol/L (10-20); BUN (Urea Nitrogen) 26 mg/dL (8.4-25.7); Calc. Creatinine Clearance 0 mL/min (70-130); Calcium 9.4 mg/dL (7.8-10.44); Carbon Dioxide 22 mmol/L (23-31); Chloride 105 mmol/L (98-107); Glucose 126 mg/dL (80-115); Sodium 139 mmol/L (136-145)
== END 2021-08-14 10:01 | disposition home or self-care (01) ==
LOC: LABBT 10:00
PROVIDERS: ATTEND Urology
DX: Z01.812 Encounter for preprocedural laboratory examination (principal); Z20.822 Contact with and (suspected) exposure to COVID-19
CPT/HCPCS: 80048; 85027; 85610; 85730; 87086; U0003; U0005

== ENCOUNTER 2021-08-18 10:14 | Day surgery (SDC) | payer OTHER ==
[2021-08-14 15:24] VITALS: BMI 37.7
[2021-08-18] MEDS ORDERED: Sodium Chloride 0.9% 100 ML ONE (14:38)
[2021-08-18] MEDS ORDERED: CEFAZOLIN 2 GM VIAL ONE (14:38)
[2021-08-18] MEDS ORDERED: Lidocaine 1% PF 5 ML VIAL ONE (14:45)
[2021-08-18] MEDS ORDERED: Dexamethasone 20 MG/5 ML VIAL ONE (14:45)
[2021-08-18] MEDS ORDERED: Ondansetron PF 4 MG/2 ML Vial ONE (14:45)
[2021-08-18] MEDS ORDERED: PROPOFOL 200 MG/20 ML VIAL ONE (14:45)
[2021-08-18] MEDS ORDERED: Fentanyl 100 MCG/2 ML VIAL ONE (14:53)
== END 2021-08-18 18:02 | disposition home or self-care (01) ==
LOC: SDC 10:14
PROVIDERS: ATTEND Urology
PROC: 0TCB8ZZ Extirpation of Matter from Bladder, Via Natural or Artificial Opening Endoscopic (ICD-10-PCS; principal; 2021-08-18)
DX: N21.0 Calculus in bladder (principal); N32.89 Other specified disorders of bladder; M19.90 Unspecified osteoarthritis, unspecified site; E11.9 Type 2 diabetes mellitus without complications; G47.33 Obstructive sleep apnea (adult) (pediatric); Z79.899 Other long term (current) drug therapy; Z89.512 Acquired absence of left leg below knee
CPT/HCPCS: 82365; 88300; J0690; J1100; J2405; J2704; J3010; J3490

== ENCOUNTER 2021-12-29 13:59 | Outpatient (CLI) | payer MEDICARE, OTHER | END 2021-12-29 14:00 | disposition home or self-care (01) | LOC: LABBT 13:59 | PROVIDERS: ATTEND Urology | DX: Z01.818 Encounter for other preprocedural examination (principal); N40.1 Benign prostatic hyperplasia with lower urinary tract symptoms; N20.0 Calculus of kidney; N13.8 Other obstructive and reflux uropathy; Z98.84 Bariatric surgery status; F33.1 Major depressive disorder, recurrent, moderate; G47.33 Obstructive sleep apnea (adult) (pediatric); E66.01 Morbid (severe) obesity due to excess calories; I73.9 Peripheral vascular disease, unspecified; E11.65 Type 2 diabetes mellitus with hyperglycemia | CPT/HCPCS: 71046; 80048; 81001; 85027; 85610; 85730; 86850; 86900; 86901; 87086 ==

== ENCOUNTER 2022-01-01 06:54 | Day surgery (SDC) | payer MEDICARE, OTHER ==
[2021-12-29 15:26] LABS: Bilirubin Neg (Negative); Blood, Urine 250 (Negative); Clarity Cloudy (Clear); Glucose, Urine (Dipstick) Normal (Negative); Ketone, Urine Negative (Negative); Leukocyte 500 (Negative); Nitrite Positive (Negative); Protein, Urine (Dipstick) 100 mg/dl (Neg-Trace); Specific Gravity, Urine 1.015 (1.005-1.030); Urobilinogen Normal mg/dL (Less than 2)
[2021-12-29 15:39] LABS: Hemoglobin 14.5 g/dL (13.5-17.5); Mean Corpuscular HGB CONC 33.6 g/dL (32.0-36.0); Mean Corpuscular Hemoglobin 29.4 pg (27.0-33.0); Mean Corpuscular Volume 87.6 fl (81.2-95.1); Mean Platelet Volume 11.4 fl (7.4-10.4); Platelet Count 215 10x3/uL (150-450); RBC Distribution Width 14.9 % (11.5-14.5); Red Blood Cell (RBC) Count 4.93 10x6/uL (4.32-5.72); White Blood Cell (WBC) Count 8.8 10x3/uL (3.5-10.5)
[2021-12-29 15:43] LABS: PTT 25.3 sec (22.0-33.0); Prothrombin Time 10.6 sec (9.5-12.1)
[2021-12-29 15:49] LABS: Anion Gap 15 mmol/L (10-20); BUN (Urea Nitrogen) 21 mg/dL (8.4-25.7); Calc. Creatinine Clearance 0 mL/min (70-130); Calcium 9.1 mg/dL (7.8-10.44); Carbon Dioxide 22 mmol/L (23-31); Chloride 108 mmol/L (98-107); Estimated GFR 81; Glucose 188 mg/dL (80-115); Sodium 141 mmol/L (136-145)
[2021-12-29 15:58] LABS: Bacteria/HPF 4+ HPF (None Seen); RBC/HPF 21-50 HPF (0-3); Triple Phosphate Crystal 1+ HPF (None Seen); WBC/HPF Greater than 50 HPF (0-3)
[2021-12-29 16:00] LABS: Squamous Epithelial 0-3 HPF (0-3)
[2021-12-31 03:05] VITALS: BMI 36.5
[2022-01-01] MEDS ORDERED: Levofloxacin 500 mg/D5W 100 ml Premix Bag ONE (08:04)
[2022-01-01] MEDS ORDERED: Vancomycin 1 GM/200 ML (PREMIX) BAG ONE (08:54)
[2022-01-01] MEDS ORDERED: fentaNYL PF 100 MCG/2 ML SYRINGE ONE ×2 (09:11)
[2022-01-01] MEDS ORDERED: Bupivacaine/Epinephrine 0.25% 30 ML VIAL ONE (09:22)
[2022-01-01] MEDS ORDERED: Ioversol 68 % 50 ML VIAL ONE (09:22)
[2022-01-01] MEDS ORDERED: Bupivacaine 0.25% HCL 30 ML VIAL ONE (09:22)
[2022-01-01] MEDS ORDERED: CEFAZOLIN 1 GM VIAL ONE (09:42)
[2022-01-01] MEDS ORDERED: Sodium Chloride 0.9% 100 ML ONE (09:42)
[2022-01-01] MEDS ORDERED: FENTANYL 50 MCG/ML 1 ML VIAL ONE ×3 (12:07→12:29)
[2022-01-01] MEDS ORDERED: Promethazine HCl 25 MG/ML VIAL ONE (12:07)
[2022-01-01] MEDS ORDERED: Ondansetron PF 4 MG/2 ML Vial ONE (13:11)
== END 2022-01-01 14:23 | disposition home or self-care (01) ==
LOC: SDC 06:54
PROVIDERS: ATTEND Urology
PROC: 0TC03ZZ Extirpation of Matter from Right Kidney, Percutaneous Approach (ICD-10-PCS; principal; 2022-01-01)
DX: N20.0 Calculus of kidney (principal); N40.0 Benign prostatic hyperplasia without lower urinary tract symptoms; E11.9 Type 2 diabetes mellitus without complications; G47.33 Obstructive sleep apnea (adult) (pediatric); Z86.718 Personal history of other venous thrombosis and embolism; Z79.82 Long term (current) use of aspirin; Z79.899 Other long term (current) drug therapy
CPT/HCPCS: 50081; 80048; 81001; 82365; 85027; 85610; 85730; 86850; 86900; 86901; 87086; J3010; 88300; C1769; C2617; J0690; J1956; J2405; J2550; J3370; J3490; Q9967; S0020

== ENCOUNTER 2022-01-02 12:48 | Inpatient (IN) | payer MEDICARE, OTHER ==
[2022-01-02 13:35] LABS: #Eosinphils 0.1 thou/uL (0.0-0.7); #Lymphocytes 1.4 thou/uL (1.20-3.40); #Monocytes 1.2 thou/uL (0.11-0.59); #Neutrophils 14.4 thou/uL (1.40-6.50); %Basophils 0.1 % (0.0-1.0); %Eosinophils 0.5 % (0.0-10.0); %Monocytes 7.1 % (0.0-10.0); %Neutrophils 84.4 % (42.0-75.0); Hemoglobin 14.3 g/dL (14.0-18.0); Mean Corpuscular HGB CONC 31.9 g/dL (32.0-36.0); Mean Corpuscular Hemoglobin 29.3 pg (27.0-31.0); Mean Corpuscular Volume 92.1 fl (78.0-98.0); Mean Platelet Volume 8.8 fL (7.4-10.4); Platelet Count 143 10x3/uL (130-400); RBC Distribution Width 13.7 % (11.5-14.5); Red Blood Cell (RBC) Count 4.88 mill/uL (4.70-6.10)
[2022-01-02] MEDS ORDERED: Acetaminophen 500 MG TAB ONE (13:44)
[2022-01-02 13:57] LABS: ALT (SGPT) 26 U/L (8-55); AST (SGOT) 14 U/L (5-34); Albumin 3.5 g/dL (3.4-4.8); Alkaline Phosphatase 81 U/L (40-110); Anion Gap 12 mmol/L (10-20); BUN (Urea Nitrogen) 23 mg/dL (8.4-25.7); Bilirubin, Total 0.6 mg/dL (0.2-1.2); Calc. Creatinine Clearance 0 mL/min (70-130); Calcium 8.6 mg/dL (7.8-10.44); Carbon Dioxide 24 mmol/L (23-31); Chloride 100 mmol/L (98-107); Estimated GFR 35; Globulin 3.3 g/dL (2.4-3.5); Glucose 166 mg/dL (80-115); Potassium 3.9 mmol/L (3.5-5.1); Protein, Total 6.8 g/dL (5.8-8.1); Sodium 132 mmol/L (136-145)
[2022-01-02 14:24] LABS: Bacteria/HPF None Seen HPF (None Seen); Bilirubin Negative (Negative); Blood, Urine 3+ (Negative); Clarity Turbid (Clear); Glucose, Urine (Dipstick) Normal (Negative); Ketone, Urine Negative (Negative); Leukocyte 500 Leu/uL (Negative); Nitrite Negative (Negative); Protein, Urine (Dipstick) 200 mg/dL (Neg-Trace); RBC/HPF Greater than 50 HPF (0-3); Squamous Epithelial 0-3 HPF (0-3); Urobilinogen Normal mg/dL (Less than 2); WBC/HPF Greater than 50 HPF (0-3)
[2022-01-02] MEDS ORDERED: Morphine 4 MG/ML VIAL ONE ×2 (14:44→16:53)
[2022-01-02] MEDS ORDERED: cefTRIAXone\\ROCEPHIN 1 GM VIAL ONE (14:44)
[2022-01-02] MEDS ORDERED: metroNIDAZOLE 500 MG/100 ML BAG ONE (16:53)
[2022-01-02] MEDS ORDERED: Ondansetron PF 4 MG/2 ML Vial IVP PRN (17:07)
[2022-01-02] MEDS ORDERED: Ondansetron ODT 4 MG TAB PO PRN (17:07)
[2022-01-02] MEDS ORDERED: Acetaminophen 325 MG TAB PO PRN (17:07)
[2022-01-02] MEDS ORDERED: Calcium Carbonate 500 MG ChewTAB PO PRN (17:07)
[2022-01-02] MEDS ORDERED: Dextrose 5% in Water 1,000 ML IV PRN (17:12)
[2022-01-02] MEDS ORDERED: Dextrose 50% Abboject 50 ML SYRINGE SLOW IVP PRN (17:12)
[2022-01-02] MEDS ORDERED: Insulin Regular 300 UNITS/3 ML VIAL SC PRN ×2 (17:12)
[2022-01-02] MEDS ORDERED: hydrALAZINE 25 MG TAB PO PRN (17:13)
[2022-01-02] MEDS ORDERED: Vancomycin 1 GM in Premix Bag 1 BAG IVPB SCH (17:15)
[2022-01-02] MEDS ORDERED: Electrolyte Replacement Protocol FS SCH (17:15)
[2022-01-02 19:54] VITALS: BMI 35.5
[2022-01-02] MEDS: Lactated Ringer's 1,000 ML IV SCH (19:54)
[2022-01-02] MEDS: Cefepime 1 GM in Sodium Chloride 0.9% 100 ML IVPB SCH (19:55)
[2022-01-02] MEDS: Senokot S 8.6-50 MG TAB PO SCH (19:55)
[2022-01-02] MEDS: HYDROcodone/Acetaminophen 5/325 mg Tablet PO PRN (19:56)
[2022-01-02] MEDS: Famotidine 20 MG TAB PO SCH (19:56)
[2022-01-02] MEDS: metroNIDAZOLE 500 MG TAB PO SCH (19:56)
[2022-01-02] MEDS: Polyethylene Glycol 3350 17 GM Packet PO SCH (19:57)
[2022-01-02] MEDS ORDERED: Tamsulosin HCl 0.4 MG CAP PO SCH (21:00)
[2022-01-02] MEDS: VANCOMYCIN 1.75 GM/500 ML BAG 1.75 GM in Premix Bag 1 BAG IVPB SCH (21:23)
[2022-01-02] MEDS: Morphine 4 MG/ML VIAL SLOW IVP PRN (22:03)
[2022-01-03] MEDS: Morphine 4 MG/ML VIAL SLOW IVP PRN ×4 (02:55→23:04)
[2022-01-03] MEDS: Lactated Ringer's 1,000 ML IV SCH ×4 (03:00→21:08)
[2022-01-03 06:37] LABS: #Eosinphils 0.1 thou/uL (0.0-0.7); #Lymphocytes 1.8 thou/uL (1.20-3.40); #Monocytes 1.9 thou/uL (0.11-0.59); #Neutrophils 12.2 thou/uL (1.40-6.50); %Basophils 0.1 % (0.0-1.0); %Eosinophils 0.8 % (0.0-10.0); %Lymphocytes 11.4 % (21.0-51.0); %Monocytes 11.7 % (0.0-10.0); Hemoglobin 13.4 g/dL (14.0-18.0); Mean Corpuscular HGB CONC 32.9 g/dL (32.0-36.0); Mean Corpuscular Hemoglobin 30.4 pg (27.0-31.0); Mean Corpuscular Volume 92.3 fl (78.0-98.0); Mean Platelet Volume 9.4 fL (7.4-10.4); Platelet Count 147 10x3/uL (130-400); RBC Distribution Width 13.8 % (11.5-14.5); Red Blood Cell (RBC) Count 4.42 mill/uL (4.70-6.10); White Blood Cell (WBC) Count 16.1 10x3/uL (4.8-10.8)
[2022-01-03 06:55] LABS: ALT (SGPT) 21 U/L (8-55); AST (SGOT) 13 U/L (5-34); Albumin 3.5 g/dL (3.4-4.8); Alkaline Phosphatase 81 U/L (40-110); Anion Gap 12 mmol/L (10-20); BUN (Urea Nitrogen) 21 mg/dL (8.4-25.7); Bilirubin, Total 0.6 mg/dL (0.2-1.2); Calc. Creatinine Clearance 69 mL/min (70-130); Calcium 8.5 mg/dL (7.8-10.44); Carbon Dioxide 23 mmol/L (23-31); Chloride 101 mmol/L (98-107); Estimated GFR 37; Globulin 3.1 g/dL (2.4-3.5); Glucose 123 mg/dL (80-115); Magnesium 1.5 mg/dL (1.6-2.6); Protein, Total 6.6 g/dL (5.8-8.1); Sodium 132 mmol/L (136-145)
[2022-01-03] MEDS: Senokot S 8.6-50 MG TAB PO SCH ×2 (07:30→20:13)
[2022-01-03] MEDS: HYDROcodone/Acetaminophen 5/325 mg Tablet PO PRN ×2 (07:30→14:15)
[2022-01-03] MEDS: Famotidine 20 MG TAB PO SCH ×2 (07:31→20:14)
[2022-01-03] MEDS: Tamsulosin HCl 0.4 MG CAP PO SCH (07:31)
[2022-01-03] MEDS: metroNIDAZOLE 500 MG TAB PO SCH ×3 (07:31→20:14)
[2022-01-03] MEDS: Sertraline 100 MG TAB PO SCH (07:31)
[2022-01-03] MEDS: Saccharomyces boulardii 250 MG CAP PO SCH (07:32)
[2022-01-03] MEDS: Cefepime 1 GM in Sodium Chloride 0.9% 100 ML IVPB SCH ×2 (07:32→20:13)
[2022-01-03] MEDS: Polyethylene Glycol 3350 17 GM Packet PO SCH ×2 (07:33→20:13)
[2022-01-03] MEDS ORDERED: Ketorolac Tromethamine 30 MG/ML VIAL IVP SCH (08:15)
[2022-01-03] MEDS ORDERED: Magnesium 2 GM/50 ML(in water) 2 GM in Premix Bag 1 BAG IVPB SCH (09:00)
[2022-01-03] MEDS: Ketorolac Tromethamine 30 MG/ML VIAL IVP PRN (16:21)
[2022-01-03] MEDS ORDERED: Zolpidem Tartrate 5 MG TAB PO SCH (21:00)
[2022-01-03] MEDS ORDERED: Non-Formulary Item 1 EACH (Dextroamphetamine/Amphetamine [Adderall Xr 30 Mg Capsule] 30 M PO SCH (21:00)
[2022-01-03] MEDS: VANCOMYCIN 1.75 GM/500 ML BAG 1.75 GM in Premix Bag 1 BAG IVPB SCH (21:07)
[2022-01-04] MEDS: Ketorolac Tromethamine 30 MG/ML VIAL IVP PRN (05:03)
[2022-01-04 06:40] LABS: #Eosinphils 0.2 thou/uL (0.0-0.7); #Lymphocytes 1.7 thou/uL (1.20-3.40); #Monocytes 1.2 thou/uL (0.11-0.59); #Neutrophils 9.1 thou/uL (1.40-6.50); %Basophils 0.2 % (0.0-1.0); %Eosinophils 1.9 % (0.0-10.0); %Lymphocytes 13.9 % (21.0-51.0); %Monocytes 9.8 % (0.0-10.0); %Neutrophils 74.3 % (42.0-75.0); Hemoglobin 12.8 g/dL (14.0-18.0); Mean Corpuscular Hemoglobin 29.4 pg (27.0-31.0); Mean Corpuscular Volume 91.9 fl (78.0-98.0); Platelet Count 163 10x3/uL (130-400); RBC Distribution Width 13.8 % (11.5-14.5); Red Blood Cell (RBC) Count 4.36 mill/uL (4.70-6.10); White Blood Cell (WBC) Count 12.2 10x3/uL (4.8-10.8)
[2022-01-04 07:03] LABS: Anion Gap 12 mmol/L (10-20); BUN (Urea Nitrogen) 27 mg/dL (8.4-25.7); Calc. Creatinine Clearance 87 mL/min (70-130); Calcium 8.5 mg/dL (7.8-10.44); Carbon Dioxide 21 mmol/L (23-31); Chloride 104 mmol/L (98-107); Estimated GFR 48; Glucose 112 mg/dL (80-115); Potassium 4.2 mmol/L (3.5-5.1); Sodium 133 mmol/L (136-145)
[2022-01-04] MEDS: Cefepime 1 GM in Sodium Chloride 0.9% 100 ML IVPB SCH (07:47)
[2022-01-04] MEDS: Polyethylene Glycol 3350 17 GM Packet PO SCH (07:49)
[2022-01-04] MEDS: Senokot S 8.6-50 MG TAB PO SCH (07:49)
[2022-01-04] MEDS: Tamsulosin HCl 0.4 MG CAP PO SCH (07:50)
[2022-01-04] MEDS: Saccharomyces boulardii 250 MG CAP PO SCH (07:50)
[2022-01-04] MEDS: Famotidine 20 MG TAB PO SCH (07:50)
[2022-01-04] MEDS: metroNIDAZOLE 500 MG TAB PO SCH (07:51)
[2022-01-04 07:54] VITALS: BP 157/87; TEMP 98.5
[2022-01-04] MEDS: Sertraline 100 MG TAB PO SCH (07:55)
[2022-01-04] MEDS: Lactated Ringer's 1,000 ML IV SCH ×2 (08:31→09:17)
[2022-01-04] MEDS ORDERED: Ascorbic Acid 500 mg Chewable Tablet PO SCH (09:00)
[2022-01-04] MEDS ORDERED: Multivitamin W/ Minerals 1 TAB PO SCH (09:00)
[2022-01-04] MEDS ORDERED: Tamsulosin HCl 0.4 MG CAP PO SCH (09:00)
[2022-01-04] MEDS ORDERED: Venlafaxine HCl XR 150 MG CAP PO SCH (09:00)
[2022-01-04] MEDS ORDERED: Magnesium 2 GM/50 ML(in water) 2 GM in Premix Bag 1 BAG IVPB SCH (09:00)
[2022-01-04] MEDS ORDERED: Oxybutynin 5 MG TAB PO SCH (09:00)
[2022-01-04] MEDS ORDERED: Sertraline 100 MG TAB PO SCH (09:00)
[2022-01-05] MEDS ORDERED: FLU VACC QS2022-23(65YR UP)/PF 240 MCG/0.7 ML SYRINGE IM ONE (09:00)
== END 2022-01-04 12:15 | disposition home or self-care (01) | DRG 698 ==
LOC: ERS 12:48 → T4-B 18:18
PROVIDERS: ADMIT Internal Medicine; ATTEND Family Medicine
DX: T83.593A Infection and inflammatory reaction due to other urinary stents, initial encounter (principal); A41.9 Sepsis, unspecified organism; N10 Acute pyelonephritis; N17.9 Acute kidney failure, unspecified; Z20.822 Contact with and (suspected) exposure to COVID-19; N20.0 Calculus of kidney; Z23 Encounter for immunization; F17.210 Nicotine dependence, cigarettes, uncomplicated; G47.33 Obstructive sleep apnea (adult) (pediatric); F43.10 Post-traumatic stress disorder, unspecified; N18.2 Chronic kidney disease, stage 2 (mild); I12.9 Hypertensive chronic kidney disease with stage 1 through stage 4 chronic kidney disease, or unspecified chronic kidney disease; E11.22 Type 2 diabetes mellitus with diabetic chronic kidney disease; N40.0 Benign prostatic hyperplasia without lower urinary tract symptoms; Z79.899 Other long term (current) drug therapy; Z79.82 Long term (current) use of aspirin; Z99.89 Dependence on other enabling machines and devices; Z90.49 Acquired absence of other specified parts of digestive tract; Y83.8 Other surgical procedures as the cause of abnormal reaction of the patient, or of later complication, without mention of misadventure at the time of the procedure; Z86.718 Personal history of other venous thrombosis and embolism
CPT/HCPCS: 36415; 36416; 71045; 74177; 80048; 80053; 81001; 81003; 81015; 82365; 83605; 83735; 85025; 85027; 85610; 85730; 86850; 86900; 86901; 87040; 87086; 88300; 93005; 96365; 96375; 96376; C1769; C2617; J0690; J0692; J0696; J1885; J1956; J2270; J2405; J2550; J3010; J3370; J3475; J3490; J7120; Q9967; S0020; U0003; U0005

== ENCOUNTER 2022-02-18 12:42 | Outpatient (CLI) | payer MEDICARE, OTHER | END 2022-02-18 12:43 | disposition home or self-care (01) | LOC: BICCT 12:42 | PROVIDERS: ATTEND Urology | DX: N20.0 Calculus of kidney (principal); N28.89 Other specified disorders of kidney and ureter; K44.9 Diaphragmatic hernia without obstruction or gangrene; I72.3 Aneurysm of iliac artery | CPT/HCPCS: 74176 ==

== ENCOUNTER 2022-04-20 13:20 | Outpatient (CLI) | payer MEDICARE, OTHER ==
[2022-04-20 14:36] LABS: Bilirubin Neg (Negative); Blood, Urine 250 (Negative); Clarity Slightly Cloudy (Clear); Glucose, Urine (Dipstick) Normal (Negative); Ketone, Urine Negative (Negative); Leukocyte 500 (Negative); Nitrite Negative (Negative); Protein, Urine (Dipstick) 30 mg/dl (Neg-Trace); Urobilinogen Normal mg/dL (Less than 2)
[2022-04-20 14:37] LABS: Hemoglobin 14.4 g/dL (13.5-17.5); Mean Corpuscular HGB CONC 31.4 g/dL (32.0-36.0); Mean Corpuscular Hemoglobin 26.8 pg (27.0-33.0); Mean Corpuscular Volume 85.3 fl (81.2-95.1); Mean Platelet Volume 11.7 fl (7.4-10.4); Platelet Count 221 10x3/uL (150-450); RBC Distribution Width 15.9 % (11.5-14.5); Red Blood Cell (RBC) Count 5.37 10x6/uL (4.32-5.72); White Blood Cell (WBC) Count 10.7 10x3/uL (3.5-10.5)
[2022-04-20 14:42] LABS: PTT 24.7 sec (22.0-33.0); Prothrombin Time 10.4 sec (9.5-12.1)
[2022-04-20 15:18] LABS: Anion Gap 14 mmol/L (10-20); BUN (Urea Nitrogen) 26 mg/dL (8.4-25.7); Calc. Creatinine Clearance 0 mL/min (70-130); Calcium 8.8 mg/dL (7.8-10.44); Carbon Dioxide 20 mmol/L (23-31); Chloride 108 mmol/L (98-107); Estimated GFR 66; Glucose 171 mg/dL (80-115); Potassium 5.1 mmol/L (3.5-5.1); Sodium 137 mmol/L (136-145)
[2022-04-20 16:41] LABS: RBC/HPF 21-50 HPF (0-3); WBC/HPF 21-50 HPF (0-3)
[2022-04-20 16:42] LABS: Bacteria/HPF 2+ HPF (None Seen); Calcium Oxalate Crystals Rare HPF (None Seen); Mucous/LPF 2+ LPF (<2+); Squamous Epithelial 0-3 HPF (0-3)
== END 2022-04-20 13:21 | disposition home or self-care (01) ==
LOC: LABBT 13:20
PROVIDERS: ATTEND Urology
DX: Z01.818 Encounter for other preprocedural examination (principal); N20.0 Calculus of kidney; N40.1 Benign prostatic hyperplasia with lower urinary tract symptoms; N13.8 Other obstructive and reflux uropathy; F33.1 Major depressive disorder, recurrent, moderate; E11.65 Type 2 diabetes mellitus with hyperglycemia; G47.33 Obstructive sleep apnea (adult) (pediatric); E66.01 Morbid (severe) obesity due to excess calories; I73.9 Peripheral vascular disease, unspecified; Z98.84 Bariatric surgery status
CPT/HCPCS: 80048; 81001; 85027; 85610; 85730; 87086; 93005; 93010

== ENCOUNTER 2022-04-30 08:35 | Day surgery (SDC) | payer MEDICARE, OTHER ==
[2022-04-28 11:02] VITALS: BMI 36.0
[2022-04-30] MEDS ORDERED: Fentanyl 100 MCG/2 ML VIAL ONE (12:35)
[2022-04-30] MEDS ORDERED: Levofloxacin 500 mg/D5W 100 ml Premix Bag ONE (12:50)
[2022-04-30] MEDS ORDERED: PROPOFOL 200 MG/20 ML VIAL ONE (13:01)
[2022-04-30] MEDS ORDERED: Rocuronium Bromide 10 MG/ML (10ML VIAL) ONE (13:01)
[2022-04-30] MEDS ORDERED: Lidocaine 1% PF 5 ML VIAL ONE (13:01)
[2022-04-30] MEDS ORDERED: Glycopyrrolate 0.2 MG/ML 5 ML SYRINGE ONE (13:01)
[2022-04-30] MEDS ORDERED: NEOSTIGMINE 3 MG/3 ML SYR 3 MG/3 ML SYRINGE ONE (13:01)
[2022-04-30] MEDS ORDERED: Ondansetron PF 4 MG/2 ML Vial ONE (13:01)
[2022-04-30] MEDS ORDERED: HYDROcodone/Acetaminophen 5/325 mg Tablet ONE (15:50)
== END 2022-04-30 15:57 | disposition home or self-care (01) ==
LOC: SDC 08:35
PROVIDERS: ATTEND Urology
PROC: 0TC18ZZ Extirpation of Matter from Left Kidney, Via Natural or Artificial Opening Endoscopic (ICD-10-PCS; principal; 2022-04-30)
PROC: 0T778DZ Dilation of Left Ureter with Intraluminal Device, Via Natural or Artificial Opening Endoscopic (ICD-10-PCS; 2022-04-30)
DX: N20.0 Calculus of kidney (principal); N40.1 Benign prostatic hyperplasia with lower urinary tract symptoms; N13.8 Other obstructive and reflux uropathy; N32.89 Other specified disorders of bladder; G47.33 Obstructive sleep apnea (adult) (pediatric); E11.9 Type 2 diabetes mellitus without complications; I10 Essential (primary) hypertension; Z86.718 Personal history of other venous thrombosis and embolism; Z79.82 Long term (current) use of aspirin; Z79.899 Other long term (current) drug therapy
CPT/HCPCS: J1956; J2405; J2704; J3010

== ENCOUNTER 2022-06-12 11:24 | Outpatient (CLI) | payer MEDICARE, OTHER ==
[2022-06-12 12:45] LABS: Bilirubin Neg (Negative); Blood, Urine Negative (Negative); Clarity Clear (Clear); Glucose, Urine (Dipstick) Normal (Negative); Ketone, Urine Negative (Negative); Leukocyte 25 (Negative); Nitrite Negative (Negative); Protein, Urine (Dipstick) 15 mg/dl (Neg-Trace); Specific Gravity, Urine 1.025 (1.005-1.030); Urobilinogen Normal mg/dL (Less than 2)
[2022-06-12 12:49] LABS: Hemoglobin 14.5 g/dL (13.5-17.5); Mean Corpuscular HGB CONC 31.9 g/dL (32.0-36.0); Mean Corpuscular Hemoglobin 26.9 pg (27.0-33.0); Mean Corpuscular Volume 84.1 fl (81.2-95.1); Mean Platelet Volume 11.3 fl (7.4-10.4); Platelet Count 186 10x3/uL (150-450); RBC Distribution Width 15.8 % (11.5-14.5); White Blood Cell (WBC) Count 10.1 10x3/uL (3.5-10.5)
[2022-06-12 12:59] LABS: PTT 27.4 sec (22.0-33.0)
[2022-06-12 13:30] LABS: Anion Gap 14 mmol/L (10-20); BUN (Urea Nitrogen) 18 mg/dL (8.4-25.7); Calc. Creatinine Clearance 0 mL/min (70-130); Calcium 9.2 mg/dL (7.8-10.44); Carbon Dioxide 23 mmol/L (23-31); Chloride 108 mmol/L (98-107); Estimated GFR 74; Glucose 99 mg/dL (80-115); Potassium 4.6 mmol/L (3.5-5.1); Sodium 140 mmol/L (136-145)
[2022-06-12 13:39] LABS: Bacteria/HPF Rare-Few HPF (None Seen); RBC/HPF 0-3 HPF (0-3); Squamous Epithelial 0-3 HPF (0-3); WBC/HPF 0-3 HPF (0-3)
== END 2022-06-12 11:25 | disposition home or self-care (01) ==
LOC: LABBT 11:24
PROVIDERS: ATTEND Urology
DX: Z01.818 Encounter for other preprocedural examination (principal); Z48.815 Encounter for surgical aftercare following surgery on the digestive system; N40.1 Benign prostatic hyperplasia with lower urinary tract symptoms; E11.65 Type 2 diabetes mellitus with hyperglycemia; F33.1 Major depressive disorder, recurrent, moderate; G47.33 Obstructive sleep apnea (adult) (pediatric); E66.01 Morbid (severe) obesity due to excess calories; N20.0 Calculus of kidney; I73.9 Peripheral vascular disease, unspecified; N31.8 Other neuromuscular dysfunction of bladder; Z98.84 Bariatric surgery status
CPT/HCPCS: 80048; 81001; 85027; 85610; 85730; 87086; 93005; 93010

== ENCOUNTER 2022-06-25 05:51 | Day surgery (SDC) | payer MEDICARE, OTHER ==
[2022-06-24 13:50] VITALS: BMI 36.0
[2022-06-25] MEDS ORDERED: Lidocaine 1% MPF 2 ML VIAL ONE (06:28)
[2022-06-25] MEDS ORDERED: Levofloxacin 500 mg/D5W 100 ml Premix Bag ONE (06:28)
[2022-06-25] MEDS ORDERED: fentaNYL 50 mcg/mL 1 mL Vial ONE (07:42)
[2022-06-25] MEDS ORDERED: SUGAMMADEX SODIUM 200 MG/2 ML VIAL ONE (07:42)
[2022-06-25] MEDS ORDERED: Ondansetron PF 4 MG/2 ML Vial ONE (07:51)
[2022-06-25] MEDS ORDERED: Lidocaine 1% PF 5 ML VIAL ONE (07:51)
[2022-06-25] MEDS ORDERED: PROPOFOL 200 MG/20 ML VIAL ONE (07:51)
[2022-06-25] MEDS ORDERED: ePHEDrine Sulfate 50 MG/10 ML VIAL ONE (07:51)
[2022-06-25] MEDS ORDERED: Rocuronium Bromide 10 MG/ML (10ML VIAL) ONE (07:51)
[2022-06-25] MEDS ORDERED: Oxybutynin 5 MG TAB ONE (09:18)
[2022-06-25] MEDS ORDERED: Phenazopyridine HCl 100 MG TAB ONE (09:18)
== END 2022-06-25 11:00 | disposition home or self-care (01) ==
LOC: SDC 05:51
PROVIDERS: ATTEND Urology
PROC: 0TC08ZZ Extirpation of Matter from Right Kidney, Via Natural or Artificial Opening Endoscopic (ICD-10-PCS; principal; 2022-06-25)
PROC: 0TC18ZZ Extirpation of Matter from Left Kidney, Via Natural or Artificial Opening Endoscopic (ICD-10-PCS; 2022-06-25)
PROC: 0T788DZ Dilation of Bilateral Ureters with Intraluminal Device, Via Natural or Artificial Opening Endoscopic (ICD-10-PCS; 2022-06-25)
DX: N20.0 Calculus of kidney (principal); N32.89 Other specified disorders of bladder; N40.1 Benign prostatic hyperplasia with lower urinary tract symptoms; N13.8 Other obstructive and reflux uropathy; G47.33 Obstructive sleep apnea (adult) (pediatric); E11.51 Type 2 diabetes mellitus with diabetic peripheral angiopathy without gangrene; E78.2 Mixed hyperlipidemia; I10 Essential (primary) hypertension; M19.90 Unspecified osteoarthritis, unspecified site; F17.210 Nicotine dependence, cigarettes, uncomplicated; E66.01 Morbid (severe) obesity due to excess calories; Z68.36 Body mass index [BMI] 36.0-36.9, adult; Z86.16 Personal history of COVID-19; Z86.718 Personal history of other venous thrombosis and embolism; Z79.82 Long term (current) use of aspirin; Z79.899 Other long term (current) drug therapy; Z91.040 Latex allergy status; Z89.512 Acquired absence of left leg below knee; Z98.84 Bariatric surgery status
CPT/HCPCS: 52356; 82365; J3010; 88300; C1713; C1747; C1769; C2617; J1956; J2405; J2704

== ENCOUNTER 2022-09-04 15:16 | Outpatient (CLI) | payer MEDICARE, OTHER | END 2022-09-04 15:17 | disposition home or self-care (01) | LOC: ULT 15:16 | PROVIDERS: ATTEND Urology | DX: N20.0 Calculus of kidney (principal) | CPT/HCPCS: 76770 ==

== ENCOUNTER 2022-10-16 10:49 | Outpatient (CLI) | payer MEDICARE, OTHER ==
[2022-10-16 12:19] LABS: Bilirubin Neg (Negative); Blood, Urine 10 (Negative); Clarity Cloudy (Clear); Glucose, Urine (Dipstick) Normal (Negative); Ketone, Urine Negative (Negative); Leukocyte 500 (Negative); Nitrite Positive (Negative); Protein, Urine (Dipstick) 15 mg/dl (Neg-Trace); Urobilinogen Normal mg/dL (Less than 2)
[2022-10-16 12:26] LABS: Hematocrit 44.1 % (38.8-50.0); Hemoglobin 14.1 g/dL (13.5-17.5); Mean Corpuscular Hemoglobin 27.3 pg (27.0-33.0); Mean Corpuscular Volume 85.3 fl (81.2-95.1); Mean Platelet Volume 10.2 fl (7.4-10.4); Platelet Count 201 10x3/uL (150-450); RBC Distribution Width 14.7 % (11.5-14.5); Red Blood Cell (RBC) Count 5.17 10x6/uL (4.32-5.72); White Blood Cell (WBC) Count 9.3 10x3/uL (3.5-10.5)
[2022-10-16 12:30] LABS: Bacteria/HPF 4+ HPF (None Seen); RBC/HPF 0-3 HPF (0-3); Squamous Epithelial 0-3 HPF (0-3); WBC/HPF 21-50 HPF (0-3)
[2022-10-16 12:31] LABS: Anion Gap 14 mmol/L (10-20); BUN (Urea Nitrogen) 19 mg/dL (8.4-25.7); Calc. Creatinine Clearance 0 mL/min (70-130); Calcium 9.1 mg/dL (7.8-10.44); Carbon Dioxide 23 mmol/L (23-31); Chloride 106 mmol/L (98-107); Estimated GFR 77; Glucose 140 mg/dL (80-115); Potassium 4.3 mmol/L (3.5-5.1); Sodium 139 mmol/L (136-145)
[2022-10-16 12:35] LABS: PTT 25.1 sec (22.0-33.0); Prothrombin Time 10.9 sec (9.5-12.1)
== END 2022-10-16 10:50 | disposition home or self-care (01) ==
LOC: LABBT 10:49
PROVIDERS: ATTEND Urology
DX: Z01.818 Encounter for other preprocedural examination (principal); N20.0 Calculus of kidney; N40.1 Benign prostatic hyperplasia with lower urinary tract symptoms; N13.8 Other obstructive and reflux uropathy; E66.01 Morbid (severe) obesity due to excess calories; E11.51 Type 2 diabetes mellitus with diabetic peripheral angiopathy without gangrene; E11.65 Type 2 diabetes mellitus with hyperglycemia; F33.1 Major depressive disorder, recurrent, moderate; G47.33 Obstructive sleep apnea (adult) (pediatric); Z98.84 Bariatric surgery status
CPT/HCPCS: 80048; 81001; 85027; 85610; 85730; 87077; 87086; 87186; 93005; 93010

== ENCOUNTER → 2022-12-10 | Day surgery (SDC) | payer MEDICARE, OTHER | LOC: SPEC 10:01 | PROC: 05HY33Z Insertion of Infusion Device into Upper Vein, Percutaneous Approach (ICD-10-PCS; principal; 2022-12-10) | DX: N39.0 Urinary tract infection, site not specified (principal) | CPT/HCPCS: 36569; C1751 ==

== ENCOUNTER 2023-01-29 14:21 | Outpatient (CLI) | payer MEDICARE, OTHER ==
[2023-01-29 16:00] LABS: Bilirubin Neg (Negative); Blood, Urine 25 (Negative); Clarity Cloudy (Clear); Glucose, Urine (Dipstick) Normal (Negative); Ketone, Urine Negative (Negative); Leukocyte 500 (Negative); Nitrite Positive (Negative); Protein, Urine (Dipstick) 30 mg/dl (Neg-Trace); Urobilinogen Normal mg/dL (Less than 2)
[2023-01-29 16:05] LABS: Hematocrit 43.9 % (38.8-50.0); Mean Corpuscular HGB CONC 31.9 g/dL (32.0-36.0); Mean Corpuscular Hemoglobin 26.6 pg (27.0-33.0); Mean Corpuscular Volume 83.5 fl (81.2-95.1); Mean Platelet Volume 11.3 fl (7.4-10.4); Platelet Count 164 10x3/uL (150-450); RBC Distribution Width 15.6 % (11.5-14.5); Red Blood Cell (RBC) Count 5.26 10x6/uL (4.32-5.72); White Blood Cell (WBC) Count 11.5 10x3/uL (3.5-10.5)
[2023-01-29 16:17] LABS: PTT 22.4 sec (22.0-33.0); Prothrombin Time 10.6 sec (9.5-12.1)
[2023-01-29 16:34] LABS: Anion Gap 18 mmol/L (10-20); BUN (Urea Nitrogen) 18 mg/dL (8.4-25.7); Calc. Creatinine Clearance 0 mL/min (70-130); Calcium 9.1 mg/dL (7.8-10.44); Carbon Dioxide 19 mmol/L (23-31); Chloride 107 mmol/L (98-107); Estimated GFR 79; Glucose 136 mg/dL (80-115); Potassium 4.2 mmol/L (3.5-5.1); Sodium 140 mmol/L (136-145)
[2023-01-29 16:44] LABS: Bacteria/HPF 4+ HPF (None Seen); WBC/HPF 21-50 HPF (0-3)
== END 2023-01-29 14:22 | disposition home or self-care (01) ==
LOC: LABBT 14:21
PROVIDERS: ATTEND Urology
DX: Z01.812 Encounter for preprocedural laboratory examination (principal); N40.1 Benign prostatic hyperplasia with lower urinary tract symptoms
CPT/HCPCS: 80048; 81001; 85027; 85610; 85730; 87077; 87086; 87186; 93005; 93010

== ENCOUNTER 2023-04-19 15:33 | Outpatient (CLI) | payer MEDICARE, OTHER ==
[2023-04-19 16:30] LABS: Hematocrit 42.6 % (38.8-50.0); Hemoglobin 14.2 g/dL (13.5-17.5); Mean Corpuscular HGB CONC 33.3 g/dL (32.0-36.0); Mean Platelet Volume 9.6 fl (7.4-10.4); Platelet Count 176 10x3/uL (150-450); RBC Distribution Width 15.8 % (11.5-14.5); Red Blood Cell (RBC) Count 5.26 10x6/uL (4.32-5.72)
[2023-04-19 16:49] LABS: MDiff Complete? YES
[2023-04-19 16:51] LABS: ALT (SGPT) 27 U/L (8-55); AST (SGOT) 17 U/L (5-34); Albumin 4.2 g/dL (3.4-4.8); Alkaline Phosphatase 85 U/L (40-110); Anion Gap 14 mmol/L (10-20); BUN (Urea Nitrogen) 28 mg/dL (8.4-25.7); Bilirubin, Total 0.3 mg/dL (0.2-1.2); Calc. Creatinine Clearance 0 mL/min (70-130); Calcium 9.2 mg/dL (7.8-10.44); Carbon Dioxide 22 mmol/L (23-31); Chloride 107 mmol/L (98-107); Estimated GFR 82; Globulin 3.3 g/dL (2.4-3.5); Glucose 131 mg/dL (80-115); Potassium 4.5 mmol/L (3.5-5.1); Protein, Total 7.5 g/dL (5.8-8.1); Sodium 138 mmol/L (136-145)
[2023-04-19 16:54] LABS: Eosinophils 4 % (0-10); Lymphocytes 44 % (21-51); Monocytes 12 % (0-10); Neutrophil 40 % (42-75)
[2023-04-19 16:55] LABS: Platelet Adequacy Comment Appears Adequate; RBC Morph Comment Within Normal Limits; Vacuoles SLIGHT
== END 2023-04-19 15:34 | disposition home or self-care (01) ==
LOC: LABBT 15:33
PROVIDERS: ATTEND Internal Medicine Cardiovascular Disease
DX: Z01.812 Encounter for preprocedural laboratory examination (principal)
CPT/HCPCS: 80053; 85025